=== PATIENT | female | born 1970 | race Caucasian/White ===

== ENCOUNTER 2023-01-15 16:08 | Emergency (ER) | payer OTHER ==
--- OUTSIDE RECORDS SUMMARY | 2023-01-15 16:48 | XMS REPORT | Continuity of Care Document ---
Author Name Unknown Address [address] [facility] [address] [place] [address] [facility] thconnect Address [address] [facility] [address] [place] [address] Care Team Providers Care Gospel Singer Name Role Phone All Macdonald Attending Clinicia n Unavailable Alexandra Craig V Attending Clinician Un available Alexandra Craig V Admitting Clinician Un available Payers Payer Name Policy Type Policy Number Effective Date Expirati on Date Source Allergies, Adverse Reactions, Alerts Allergy Name Allergy Type Status Severity Reaction(s) Onset Date Inactive Date Treating Clinician Comments Source codeine DA Active U UPSET STOMACH 10-28 00:00: 00 [facility] Encounters Start Date/Time End Date/Time Encounter Type Admission Type Attending Clinicians Care Facility Care Department Encounter ID Source 2021-03-22 15:05:41 [id number] [facility] 2022-08-05 12:00:00 2022-08-05 12:00:00 Outpatient Alexandra Concepcion [id number] [facility] 2021-08-06 17:03:00 2021-08-06 17:03:00 Outpatient Alexandra Concepcion [facility]I [id number] [facility] 2021-03-23 11:00:00 2021-03-23 11:00:00 Inpatient All Garcia CRAD [id number] [facility] 2021-03-22 13:34:00 2021-03-22 13:34:00 Outpatient All GarciaW [facility] [id number] [facility] 2021-02-20 12:00:00 2021-02-20 12:00:00 Outpatient Alexandra Concepcion CHUCK [id number] [facility] 2021-02-19 08:00:00 2021-02-19 23:00:00 Outpatient Alexandra Concepcion CPUL [id number] [facility] 2021-02-19 08:38:00 2021-02-19 08:38:00 [facility] [id number] [facility] Results Test Description Test Time Test Comments Results Resul t Comments Source - XR CHEST 2 V 2021-08-06 17:40:00 [facility] : 1970 Sex: F FAX: Leobardo Maravilla [phone] [place]: St: REG Name: AGUSTÍN MCGRATH [facility] : 1970 Age/S: 51/F [address] Unit #: [id number] Loc: [place] [address] Phys: Eliezer Craig MD Acct: [id number] Dis Date: Status: REG CLI PHONE #: [phone] Exam Date: 08/06/2021 1721 FAX #: [phone] Reason: ENCOUNTER FOR OTHER PREPROCEDURAL EXAMINATION EXAMS: CPT CODE: [id number] XR CHEST 2 V 26372 Location code: H5 Chest 1 view Indication: ENCOUNTER FOR OTHER PREPROCEDURAL EXAMINATION. Comparison: None Findings: The heart and mediastinum are not remarkable. Costophrenic angles are clear. Lungs are clear. Bone is unremarkable for age. Impression: 1. No radiographic evidence of acute cardiopulmonary disease. at 1740 Reported and signed by: Ike Iniguez MD CC: Alexandra Craig MD Technologist: MARLEEN GRIFFITH [facility] Date/Time/By: 08/06/2021 (1740) : By: [email or web address] PAGE 1 Signed Report FAX: Leobardo Maravilla [phone] [place]: St: REG Name: AGUSTÍN MCGRATH [facility] : 1970 Age/S: 51/F [address] Unit #: [id number] Loc: [place] [address] Phys: Eliezer Craig MD Acct: [id number] Dis Date: Status: REG CLI PHONE #: [phone] Exam Date: 08/06/2021 1721 FAX #: [phone] Reason: ENCOUNTER FOR OTHER PREPROCEDURAL EXAMINATION EXAMS: CPT CODE: [id number] XR CHEST 2 V 07534 (Continued) Orig Print D/T: S: 08/06/2021 (1743) PAGE 2 Signed Report - CT CHEST W/O CONTRAST 2021-03-22 15:02:00 [facility] : 1970 Sex: F FAX: All Campos [phone] [place]: St: REG FAX: Leobardo Maravilla [phone] Name: AGUSTÍN MCGRATH [facility] : 1970 Age/S: 51/F [address] Unit: [id number] Loc: [place] [address] Phys: All Macdonald Acct: [id number] Dis Date: Status: REG CLI PHONE #: [phone] Exam Date: 03/22/2021 9180 FAX #: [phone] Reason: ACUTE COUGH EXAMS: CPT CODE: [id number] CT CHEST W/O CONTRAST [address] without contrast. Location Code: D4 CLINICAL HISTORY: ACUTE COUGH COMPARISON: None Technique: Helical CT of the chest was performed without intravenous contrast. 5 mm axial, sagittal and coronal images were obtained. One or more of the following dose reduction techniques were used: Automated exposure control, adjustment of the mA and or KV according to patient size, and/or utilization of iterative reconstruction technique. DLP: 146.45 mGy-cm. FINDINGS: There are no focal infiltrates, pulmonary nodules, effusions, or focal emphysema. No pneumothorax. There is no mediastinal, hilar, or axillary adenopathy. There is no pericardial effusion. The heart is not enlarged. There is no mediastinal hematoma. Images through the upper abdomen are unremarkable. The bones, skin, and surrounding soft tissues are unremarkable. IMPRESSION: 1. No acute abnormality seen. at 1502 Reported and signed by: Corwin Hunter MD CC: All Macdonald; Alexandra Craig MD Technologist: SHANNA CARRENO Trnscrd Dt/Tm: 03/22/2021 (1502) [email or web address] Orig Print D/T: S: 03/22/2021 (6948 PAGE 1 Signed Report - CT HEART W CN STR [facility] 2021-02-22 09:25:00 [facility] : 1970 Sex: F FAX: Leobardo Maravilla [phone] [place]: St: PRE Name: AGUSTÍN MCGRATH [facility] : 1970 Age/S: 50/F [address] Unit: [id number] Loc: [place] [address] Phys: Eliezer Craig MD Acct: [id number] Dis Date: Status: PRE CLI PHONE #: [phone] Exam Date: 02/19/2021 1117 FAX #: [phone] Reason: FAMILY HISTORY OF ISCHEMIC HEART DISEASE AND OT EXAMS: CPT CODE: [id number] CT HEART W CN STR [facility] [address] HISTORY: Family history of heart disease COMPARISON: None TECHNIQUE: Prospective gating 64 slice coronary CTA was obtained for department protocol. Images were obtained and reviewed on 3-D workstation rendering 2D and 3D multiplanar, MIP and Volume Rendering images. FINDINGS: Quality: Overall examination is of good quality. Only limited motion artifacts are present. Morphology: Cardial chambers: Normal. Pericardium: Normal. GENERAL: Coronary artery system is right dominant. Origins: Left Main: Patent without significant disease or stenosis LAD: Patent without significant disease or stenosis DIAGONALS: Patent without significant disease or stenosis LCX: Patent without significant disease or stenosis OM: Patent without significant disease or stenosis RCA: Patent without significant disease or stenosis identified Extracardiac: Lungs are clear. IMPRESSION: 1. No significant disease or stenosis. PAGE 1 Signed Report (CONTINUED) FAX: Leobardo Maravilla [phone] [place]: St: PRE Name: AGUSTÍN MCGRATH [facility] : 1970 Age/S: 50/F [address] Unit: [id number] Loc: [place] [address] Phys: Eliezer Craig MD Acct: [id number] Dis Date: Status: PRE CLI PHONE #: [phone] Exam Date: 02/19/2021 1117 FAX #: [phone] Reason: FAMILY HISTORY OF ISCHEMIC HEART DISEASE AND OT EXAMS: CPT CODE: [id number] CT HEART W CN STR [facility] [address] (Continued) at 0925 Reported and signed by: Miky Muñiz MD CC: Alexandra Craig MD Technologist: Lea Lee Trnscrd Dt/Tm: 02/22/2021 (0925) [email or web address] Orig Print D/T: S: 02/22/2021 (0928 PAGE 2 Signed Report - DOP ART 1-2 LEVELS [id number] 10:27:00 [facility] : 1970 Sex: F FAX: Leobardo Watts [phone] [place]: St: REG Name: AGUSTÍN [facility]GR[facility] [place] 1970 Age/S: 50/F [address] Unit #: [id number] Loc: [place] [address] Phys: Alexandra Craig MD Acct: [id number] Dis Date: Status: REG CLI PHONE #: [phone] Exam Date: 02/19/2021 1005 FAX #: [phone] Reason: HYPERLIPIDEMIA EXAMS: CPT CODE: [id number] DOP ART 1-2 LEVELS FLORENCIO 65410 EXAMINATION: - DUP LE ART FLORENCIO, - DOP ART 1-2 LEVELS FLORENCIO COMPARISON: None HISTORY: Hyperlipidemia LOCATION CODE: C3 TECHNIQUE: Grayscale, color Doppler and spectral waveform analysis of the arterial systems of both lower extremities was performed. FINDINGS: RIGHT LOWER EXTREMITY:No significant plaquing is seen in the arterial structures of the right lower extremity and no areas of focal aneurysm or stenosis are identified. Triphasic waveforms are seen throughout the arterial structures of the right lower extremity. The right BRITNEY is 1.0 LEFT LOWER EXTREMITY: No significant plaquing is seen in the arterial structures of the left lower extremity, and no areas of focal aneurysm or stenosis are identified. Triphasic waveforms are seen throughout the arterial structures the left lower extremity with the exception of the dorsalis pedis artery, which is biphasic waveforms. The left BRITNEY is 1.0 IMPRESSION: No evidence of hemodynamically significant stenosis in either lower extremity Elect ronically Signed by Marge Persaud MD on 02/19/2021 at 1027 Reported and signed by: Marge Persaud MD CC: Alexandra Craig MD Technologist: JASMINE READ Trnscrd Date/Time/By: 02/19/2021 (1027) : By: [email or web address] PAGE 1 Signed Report FAX: Leobardo Maravilla [phone] [place]: St: REG -- Name: AGUSTÍN MCGRATH [facility] : 1970 Age/S: 50/F [address] Unit #: [id number] Loc: [place] [address] Phys: Alexandra Pedroza MD Acct: [id number] Dis Date: Status: REG CLI PHONE #: [phone] Exam Date: 02/19/2021 1005 FAX #: [phone] Reason: HYPERLIPIDEMIA EXAMS: CPT CODE: [id number] DOP ART 1-2 LEVELS FLORENCIO 10772 (Continued) Orig Print D/T: S: 02/19/2021 (1030) PAGE2 Signed Report- DUP LE ART [id number] 10:27:00 [facility] : 1970 Sex: F FAX: Leobardo Watts [phone] [place]: YENIFER St: REG Name: AGUSTÍN MCGRATH [facility] [place] : 1970 Age/S: 50/F [address] Unit #: [id number] Loc: [place] [address] Phys: Alexandra Craig MD Acct: [id number] Dis Date: Status: REG CLI PHONE #: [phone] Exam Date: 02/19/2021 1005 FAX #: [phone] Reason: HYPERLIPIDEMIA EXAMS: CPT CODE: [id number] DUP LE ART [place] 12901 EXAMINATION: - DUP LE ART FLORENCIO, - DOP ART 1-2 LEVELS FLORENCIO COMPARISON: None HISTORY: Hyperlipidemia LOCATIONCODE: C3 TECHNIQUE: Grayscale, color Doppler and spectral waveform analysis of the arterial systems of both lower extremities was performed. FINDINGS: RIGHT LOWER EXTREMITY:No significant plaquing is seen in the arterial structures of the right lower extremity and no areas of focal aneurysm or stenosis are identified. Triphasic waveforms are seen throughout the arterial structures of the right lower extremity. The right BRITNEY is 1.0 LEFT LOWER EXTREMITY: No significant plaquing is seen in the arterial structures of the left lower extremity, and no areas of focal aneurysm or stenosis are identif ied. Triphasic waveforms are seen throughout the arterial structures the left lower extremity with the exception of the dorsalis pedis artery, which is biphasic waveforms. The left BRITNEY is 1.0 IMPRESSION: No evidence of hemodynamically significant stenosis in either lower extremity at 1027 Reported and signed by: Marge Persaud MD CC: Alexandra Craig MD Technologist: JASMINE READ Trnscrd Date/Time/By: 02/19/2021 (1027) : By: [email or web address] PAGE 1 Signed Report FAX: Leobardo Maravilla [phone] [place]: St: REG------ Name: AGUSTÍN MCGRATH [facility] [place] : 1970 Age/S: 50/F [address] Unit #: [id number] Loc: [place] [address] Phys: Alexandra Craig MD Acct: [id number] Dis Date: Status: REG CLI PHONE #: [phone] Exam Date: 02/19/2021 1005 FAX #: [phone] Reason: HYPERLIPIDEMIA EXAMS: CPT CODE: [id number] DUP LE ART [place]ORENCIO 19377 (Continued) Orig Print D/T: S: 02/19/2021 (1030) PAGE 2 Signed Report- DUP EXTRACRANIAL [id number] 10:25:00 [facility] : 1970 Sex: F FAX: Leobardo Watts [phone] [place]: St: REG Name: AGUSTÍN MCGRATH [facility] [place] : 1970 Age/S: 50/F [address] Unit #: [id number] Loc: [place] [address] Phys: Alexandra Craig MD Acct: [id number] Dis Date: Status: REG CLI PHONE #: [phone] Exam Date: 02/19/2021 1005 FAX #: [phone] Reason: HYPERLIPIDEMIA EXAMS: CPT CODE: [id number] DUP EXTRACRANIAL [place]OR[place] 25599 EXAMINATION: - DUP EXTRACRANIAL FLORENCIO COMPARISON: None HISTORY: Hyperlipidemia LOCATION CODE: C3 TECHNIQUE: Grayscale, color Doppler and spectral waveform analysis of the carotid and vertebral arterialsystems was performed. FINDINGS: RIGHT CAROTID SYSTEM: No significant atheromatous plaquing is present in the right carotid system and no areas of focal aneurysm or stenosis are identified. Peak systolic velocity in the right internal carotid artery is 77 cm/s RIGHT ICA:CCA ratio: 0.9 LEFT CAROTID SYSTEM: No significant atheromatous plaquing is present in the left carotid system and no areas of fo deidra aneurysm or stenosis are identified. Peak systolic velocity in the left internal carotid arteryis 95 cm/s LEFT ICA:CCA ratio: 1.2 VERTEBRAL ARTERIES: Antegrade flow is seen in both vertebral arteries ADJACENT SOFT TISSUES: Unremarkable IMPRESSION: No evidence of hemodynamically significant stenosis in either carotid system using NASCET-like criteria. For any reported stenosis, validated velocity measurements with angiographic measurements, velocity criteria are extrapolated from diameter data as defined by the Society of radiologists in Ultrasound Consensus Conference Radiology 2003; 229; 340-346. at 1025 Reported and signedby: Marge Persaud MD PAGE 1 Signed Report (CONTINUED) FAX: Leobardo Watts [phone] [place]: St: REG -- Name: AGUSTÍN MCGRATH [facility] : 1970 Age/S: 50/F [address] Unit #: [id number] Loc:[place] [address] Phys: Alexandra Pedroza MD Acct: [id number] Dis Date: Status: REGCLI PHONE #: [phone] Exam Date: 02/19/2021 1005 FAX #: [phone] Reason: HYPERLIPIDEMIA EXAMS: CPT CODE: [id number] DUP EXTRACRANIAL FLORENCIO 82860 (Continued) CC: Alexandra Craig MD Technologist: JASMINE READ Date/Time/By: 02/19/2021 (1279) : By: [email or web address] PAGE 2 Signed Report FAX: Leobardo Maravilla [phone] [place]: St: REG Name: AGUSTÍN MCGRATH [facility] : 1970 Age/S: 50/F [address] Unit #: [id number] Loc: [place] [address] Phys: Alexandra Craig MD Acct: [id number] Dis Date: Status: REG CLI PHONE #: [phone] Exam Date: 02/19/2021 1005 FAX #: [phone] Reason: HYPERLIPIDEMIA EXAMS: CPT CODE: [id number] DUP EXTRACRANIAL FLORENCIO 14603 (Continued) Orig Print D/T: S: 02/19/2021 (5555) PAGE 3 Signed Report- XR HAND 3 + V [id number] 11:52:00FAX: Leobardo Maravilla [phone] [place]: St: REG Name: AGUSTÍN MCGRATH [facility] : 1970 Age/S: 48/F [address] Unit #: [id number] Loc: [place] [address] Phys: Alexandra Craig MD Acct: [id number] Dis Date: Status: REG CLI PHONE #: [phone] Exam Date: 05/06/2018 1055 FAX #: [phone] Reason: PAIN IN RIGHT FINGER(S),PAIN IN LEFT FINGER(S) EXAMS: CPT CODE: [id number] XR HAND 3 + [place] [address] EXAM: - XR HAND 3 + V BI HISTORY: PAIN IN RIGHT FINGER(S),PAIN IN LEFT FINGER(S) COMPARISON: None available time of interpretation. FINDINGS: Frontal, oblique, and lateral views of both hands are provided. No acute fracture or malalignment. No soft tissue findings are a pparent. IMPRESSION: No acute findings. at 1152 Reported and signed by: Anurag Pittman MD CC: Alexandra Craig MD Technologist: Meghan Turner Trnscrd Date/Time/By: 05/06/2018 (6099) : By: [email or web address] PAGE 1 Signed Report FAX: Leobardo Ram [phone] [place]: St: REG Name: AGUSTÍN MCGRATH [facility] : 1970 Age/S: 48/F [address] Unit #: [id number] Loc: [place] [address] Phys: Alexandra Craig MD Acct: [id number] Dis Date: Status: REG CLI PHONE #: [phone] Exam Date: 05/06/2018 1055 FAX #: [phone] Reason: PAIN IN RIGHT FINGER(S),PAIN IN LEFT FINGER(S) EXAMS: CPT CODE: [id number] XR HAND 3 + [place] [address] (Continued) Orig Print D/T: S: 05/06/2018 (1155) PAGE 2 Signed Report
[2023-01-15 17:11] LABS: Absolute Lymphocytes (CBC) 2.4 K/uL (0.7-4.9); Hematocrit 41.8 % (36.0-45.0); Lymphocytes % 31.5 % (15.3-44.8); MPV 8.3 fL (7.6-11.3); Platelets 299 thou/uL (152-406); RBC Red Blood Cell Count 4.86 M/uL (3.86-4.86)
[2023-01-15 17:17] LABS: Protime INR 0.98
[2023-01-15 17:39] LABS: ALT/SGPT 43 U/L (13-56); AST/SGOT 27 U/L (15-37); Alkaline Phosphatase 82 U/L (45-117); BUN Blood Urea Nitrogen 15 mg/dL (7-18); Bicarbonate 25 mEq/L (21-32); Bilirubin Total 0.3 mg/dL (0.2-1.0); Glomerular Filtration Rate 69 ml/min (=/>90); Glucose Level 100 mg/dL (74-106); Magnesium 2.4 mg/dL (1.6-2.4); Potassium 3.7 mEq/L (3.5-5.1); Protein, Total 8.1 g/dL (6.4-8.2); Sodium Level 138 mEq/L (136-145); Troponin High Sensitivity 41.9 pg/mL (<58.9)
[2023-01-15 17:40] LABS: Bilirubin Direct < 0.1 mg/dL (0-0.2); Bilirubin Indirect, Calculated ND mg/dL (0.2-0.8)
--- NOTE | 2023-01-15 17:55 | RAD REPORT ---
EXAM DESCRIPTION: CT - Head Brain Wo Cont - 01/15/2023 5:45 pm CLINICAL HISTORY: NUMBNESS Headache, drowsiness, numbness and tingling COMPARISON: No comparisons TECHNIQUE: All CT scans are performed using dose optimization technique as appropriate and may inclu de automated exposure control or mA/KV adjustment according to patient size. FINDINGS: No intracranial hemorrhage, hydrocephalus or extra-axial fluid collection.No areas of brai n edema or evidence of midline shift. The paranasal sinuses and mastoids are clear. The calvarium is intact. IMPRESSION: No acute intracranial abnormality.
--- NOTE | 2023-01-15 20:21 | EDPHYS ---
Physician Documentation [facility] Name: Shila Leigh Age: 52 yrs Sex: Female : 1970 Arrival Date: 01/15/2023 Time: 16:08 Bed 11 Private MD: ED Physician Umair Valles HPI: 01/15 20:20 This 52 yrs old Female presents to ER via Ambulatory with complaints of Numbness Of kb Hand, Numbness of Foot. 20:20 Pt reports numbness and tingling from tricep area to hand on left arm and from lateral kb aspect of calf to foot on left leg that started at 0900 this morning. Denies any other symptoms. 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 - Social history:: Smoking status: Patient denies any tobacco usage or history of. ROS: 20:18 Constitutional: Negative for fever, chills, and weight loss, kb 20:18 Neuro: Positive for numbness, tingling, of the left arm and left leg, 20:18 All other systems are negative, Exam: 20:18 Constitutional: This is a well developed, well nourished patient who is awake, alert, kb and in no acute distress. Head/Face: Normocephalic, atraumatic. ENT: Moist Mucous membranes Cardiovascular: Regular rate Respiratory: Respirations even and unlabored. No increased work of breathing. Talking in full sentences Abdomen/GI: Soft, non-tender. No distention Skin: Warm, dry with normal turgor. Normal color. MS/ Extremity: Pulses equal, no cyanosis. Neurovascular intact. Full, normal range of motion. Neuro: Awake and alert, GCS 15, oriented to person, place, time, and situation. Moves all extremities. Normal gait. 21:54 ECG was reviewed by the Attending Physician. kb Vital Signs: 16:43 BP 148 / 101; Pulse 85; Resp 18; Temp 98.3(O); Pulse Ox 100% on R/A; Weight 74.84 kg; db Height 5 ft. 3 in. ; Pain 0/10; 20:34 BP 137 / 94; Pulse 81; Resp 18; Pulse Ox 100% ; cp4 16:43 Body Mass Index 29.23 (74.84 kg, 160.02 cm) db 16:43 Pain Scale: Adult db MDM: 16:44 Patient medically screened. rt 20:19 Differential diagnosis: CVA, paresthesias, radiculopathy, neuropathy. Data reviewed: vital signs, nurses notes. Consideration of Admission/Observation Escalation of care including admission/observation considered. admission considered, but serial troponin normal and decreasing, denies chest pain, pt has full strength and use of all extremities. . Counseling: I had a detailed discussion with the patient and/or guardian regarding the historical points, exam findings, and any diagnostic results supporting the discharge/admit diagnosis, lab results, radiology results, the need for outpatient follow up, a family practitioner, a neurologist, to return to the emergency department if symptoms worsen or persist or if there are any questions or concerns that arise at home. 20:21 ED course: Pt in agreement with outpatient follow up. Has appt scheduled with pcp on Friday. Educated on return precautions. 12 16:47 Order name: Basic Metabolic Panel; Complete Time: 17:45 kb 01/15 16:47 Order name: CBC with Diff; Complete Time: 17:17 kb 01/15 16:47 Order name: Hepatic Function; Complete Time: 17:45 kb 01/15 16:47 Order name: High Sensitivity Troponin; Complete Time: 17:45 kb 01/15 16:47 Order name: Magnesium; Complete Time: 17:45 kb 01/15 16:47 Order name: Protime (+inr); Complete Time: 17:17 kb 01/15 16:47 Order name: Ptt, Activated; Complete Time: 17:17 kb 01/15 17:05 Order name: Glucose, Ancillary Testing; Complete Time: 17:11 EDMS 01/15 19:33 Order name: Troponin High Sensitivity; Complete Time: 20:18 kb 01/15 16:47 Order name: CT Head Brain wo Cont; Complete Time: 18:01 kb 01/15 16:47 Order name: EKG; Complete Time: 17:04 kb 01/15 16:47 Order name: Accucheck; Complete Time: 16:52 kb 01/15 16:47 Order name: EKG - Nurse/Tech; Complete Time: 17:13 kb 12 16:47 Order name: IV Saline Lock; Complete Time: 16:58 kb 12 16:47 Order name: Labs collected and sent; Complete Time: 16:58 kb 01/15 16:47 Order name: NPO; Complete Time: 17:13 kb 12 16:47 Order name: O2 Per Protocol; Complete Time: 16:58 kb 01/15 16:47 Order name: O2 Sat Monitoring; Complete Time: 16:58 kb 01/15 16:47 Order name: Stroke Swallow Screen; Complete Time: 16:58 kb EC:54 Rate is 68 beats/min. Rhythm is regular. QRS Marshall is Normal. WA interval is normal at kb 154 msec. QRS interval is normal at 72 msec. QT interval is normal at 427 msec. Administered Medications: No medications were administered Point of Care Testing: Blood Glucose: 16:52 Blood Glucose: 95 mg/dL; db Ranges: Critical Glucose Levels:Adult <50 mg/dl or >400 mg/dl <40 mg/dl or >180 mg/dl Disposition Summary: 01/15/23 20:21 Discharge Ordered Notes: Location: Home kb Condition: Stable kb Diagnosis - Paresthesia of skin kb Followup: kb - With: Emergency Department - When: As needed - Reason: Worsening of condition Followup: kb - With: Private Physician - When: 2 - 3 days - Reason: Recheck today's complaints, Continuance of care, Re-evaluation by your physician Discharge Instructions: - Discharge Summary Sheet kb - Peripheral Neuropathy kb - Paresthesia, Satv-vc-Niwi kb Forms: - Medication Reconciliation Form kb - Thank You Letter kb - Antibiotic Education kb - Prescription Opioid Use kb - Patient Portal Instructions kb - Leadership Thank You Letter kb Addendum: 01/17/2023 10:18 Co-signature as Attending Physician, Umair Valles MD I reviewed the patient's care r t provided by the Advanced Practice Provider and agree with the diagnosis and treatment plan. Signatures: Dispatcher [employer] Gretchen Rojas, PETRA-Josiah LAMBERT-Meera Gooden RN RN Umair Granda MD MD rt Corrections: (The following items were deleted from the chart) 01/15 16:47 16:46 Allergies: No Known Allergies; volodymyr helm 16:47 16:46 PMHx: None; db db
--- NOTE | 2023-01-15 20:21 | ER ---
Nurse's Notes [facility] Name: Shila Leigh Age: 52 yrs Sex: Female : 1970 Arrival Date: 01/15/2023 Time: 16:08 Bed 11 Private MD: Diagnosis: Paresthesia of skin Presentation: 01/15 16:43 Chief complaint: Patient states: STATES HAS LEFT HAND TINGLING AND LEFT LEG TINGLING. db Coronavirus screen: Client denies travel out of the [place] in the last 14 days. At this time, the client does not indicate any symptoms associated with coronavirus-19. Ebola Screen: Patient negative for fever greater than or equal to 101.5 degrees Fahrenheit, and additional compatible Ebola Virus Disease symptoms Patient denies exposure to infectious person. Patient denies travel to an Ebola-affected area in the 21 days before illness onset. No symptoms or risks identified at this time. Initial Sepsis Screen: Does the patient meet any 2 criteria? No. Patient's initial sepsis screen is negative. Does the patient have a suspected source of infection? No. Patient's initial sepsis screen is negative. Risk Assessment: Do you want to hurt yourself or someone else? Patient reports no desire to harm self or others. Onset of symptoms was January 15, 2023 at 09:00. 16:43 Method Of Arrival: Ambulatory db 16:43 Acuity: PADMINI 2 db Triage Assessment: 16:48 General: Appears in no apparent distress. comfortable, Behavior is calm, cooperative. db Pain: Denies pain. Neuro: Level of Consciousness is awake, alert, obeys commands, Oriented to person, place, time, situation. Respiratory: Airway is patent Respiratory effort is even, unlabored, Respiratory pattern is regular, symmetrical. 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 - Social history:: Smoking status: Patient denies any tobacco usage or history of. Screenin:35 [facility] ED Fall Risk Assessment (Adult) History of falling in the last 3 months, cp4 including since admission No falls in past 3 months (0 pts) Confusion or Disorientation No (0 pts) Intoxicated or Sedated No (0 pts) Impaired Gait No (0 pts) Mobility Assist Device Used No (0 pt) Altered Elimination No (0 pt) Score/Fall Risk Level 0 - 2 = Low Risk Oriented to surroundings, Maintained a safe environment, Educated pt \T\ family on fall prevention, incl call for assistance when getting out of bed, Hourly rounding (assess needs \T\ fall precautionary measures) done. Abuse screen: Denies threats or abuse. Nutritional screening: No deficits noted. Tuberculosis screening: No symptoms or risk factors identified. Assessment: 17:37 Reassessment: No changes from previously documented assessment. Patient and/or family ll1 updated on plan of care and expected duration. Pain level reassessed. Vital Signs: 16:43 BP 148 / 101; Pulse 85; Resp 18; Temp 98.3(O); Pulse Ox 100% on R/A; Weight 74.84 kg; db Height 5 ft. 3 in. ; Pain 0/10; 20:34 BP 137 / 94; Pulse 81; Resp 18; Pulse Ox 100% ; cp4 16:43 Body Mass Index 29.23 (74.84 kg, 160.02 cm) db 16:43 Pain Scale: Adult db ED Course: 16:10 Patient arrived in ED. rg4 16:44 Umair Valles MD is Attending Physician. rt 16:46 Triage completed. db 16:47 Gretchen Perez FNP-C is [facility]. kb 16:47 Arm band placed on right wrist. Patient placed. db 17:47 CT Head Brain wo Cont In Process Unspecified. EDMS 18:41 Dorene Gonzalez is Primary Nurse. cp4 19:53 Troponin High Sensitivity Sent. cp4 20:35 Bed in low position. Call light in reach. Side rails up X 1. Provided Education on: cp4 peripheral neuropathy.. 20:35 No provider procedures requiring assistance completed. intact, bleeding controlled, No cp4 redness/swelling at site. Pressure dressing applied. Administered Medications: No medications were administered Medication: 20:35 VIS not applicable for this client. cp4 Point of Care Testing: Blood Glucose: 16:52 Blood Glucose: 95 mg/dL; db Ranges: Outcome: 20:21 Discharge ordered by . kb 20:35 Discharged to home ambulatory, cp4 20:35 Condition: stable 20:35 Discharge instructions given to patient, Instructed on discharge instructions, follow up and referral plans. Demonstrated understanding of instructions, follow-up care, 20:36 Patient left the ED. cp4 Signatures: Dispatcher [employer] EDMS Gretchen Perez, PETRA-C [employer] MACHINE OFFBEARER-Lou Andres rg4 Kayode Garcia RN RN ll1 Meera Van RN RN db Umair Valles MD MD rt Potter, Christina cp4 Corrections: (The following items were deleted from the chart) 16:47 16:43 BP 148 / 101; Pulse 18bpm; Resp 18bpm; Pulse Ox 100% RA; Temp 98.3F Oral; Pain db 0/10, Adult; db 16:47 16:46 Allergies: No Known Allergies; db db 16:47 16:46 PMHx: None; db db 17:25 16:43 BP 148 / 101; Pulse 18bpm; Resp 18bpm; Pulse Ox 100% RA; Temp 98.3F Oral; 74.84 db kg; Height 5 ft. 3 in.; BMI: 29.2; Pain 0/10, Adult; db
[2023-01-15 21:36] VITALS: TEMP 98.3; O2SAT 100
[2023-01-15 21:37] VITALS: BP 137/94
== END 2023-01-15 20:36 | disposition home or self-care (01) ==
LOC: ER 16:08
DX: R20.2 Paresthesia of skin (principal); Z88.5 Allergy status to narcotic agent
CPT/HCPCS: 36415; 70450; 80048; 80076; 82947; 83735; 84484; 85025; 85610; 85730; 93005; 99283

== ENCOUNTER 2024-01-13 04:34 | Emergency (ER) | payer OTHER ==
--- OUTSIDE RECORDS SUMMARY | 2024-01-13 04:39 | XMS REPORT | Continuity of Care Document ---
Author Name Unknown Address [address] [facility] [address] [place] [address] [facility] Address [address] [facility] [address] [place] [address] Care Team Providers Care Harness Maker Name Role Phone Alexandra Craig V Attending Clinician Un available All Macdonald Attending Clinicia n Unavailable Franko Wood Attending Clinician Unavaila ble Alexandra Craig V Admitting Clinician Un available Franko Wood Admitting Clinician Unavailcelina medrano Payers Payer Name Policy Type Policy Number Effective Date Expirati on Date Source Allergies, Adverse Reactions, Alerts Allergy Name Allergy Type Status Severity Reaction(s) Onset Date Inactive Date Treating Clinician Comments Source tramadol DA Active MO RASH-UNKNOWN 2022-02 00:00: 00 [facility] codeine DA Active U UPSET STOMACH 10-28 00:00: 00 [facility] Encounters Start Date/Time End Date/Time Encounter Type Admission Type Attending Clinicians Care Facility Care Department Encounter ID Source 2023-12-09 07:30:00 [id number] [facility] 2021-03-22 15:05:41 Outpatient All MacdonaldKW [id number] [facility] 2023-01-28 18:26:00 2023-01-30 14:04:00 Inpatient Franko Noe [facility] [id number] [facility] 2022-08-05 12:00:00 2022-08-05 12:00:00 Outpatient Alexandra ConcepcionKW CHUCK [id number] [facility] 2021-08-06 17:03:00 2021-08-06 17:03:00 Outpatient Alexandra Concepcion [facility] [id number] [facility] 2021-03-23 11:00:00 2021-03-23 11:00:00 Inpatient All Garcia [facility] [id number] [facility] 2021-03-22 13:34:00 2021-03-22 13:34:00 Outpatient All [facility]W [facility] [id number] [facility] 2021-02-20 12:00:00 2021-02-20 12:00:00 Outpatient Alexandra ConcepcionW CHUCK [id number] [facility] 2021-02-19 08:00:00 2021-02-19 23:00:00 Outpatient Alexandra ConcepcionW CPUL [id number] [facility] 2021-02-19 08:38:00 2021-02-19 08:38:00 Inpatient Alexandra ConcepcionW YULIW [id number] [facility] Results Test Description Test Time Test Comments Results Result Co mments Source [id number] 12:39:00* Test Item Value Reference Range Interpretation Comme nts GLUBED (test code = GLUBED) 110 MG/DL 74-106 H [id number] 07:45:00* Test Item Value Reference Range Interpretation Comme nts GLUBED (test code = GLUBED) 97 MG/DL 74-106 N CBC W/AUTO [id number] 01:10:00* Test Item Value Reference Range Interpretation Comme nts WHITE BLOOD CELL (test code = WBC) 11.9 x10 3/uL 5.0-12.0 N RED BLOOD CELL (test code = RBC) 4.25 x10 6/uL 4.20-5.40 N HEMOGLOBIN (test code = HGB) 12.3 g/dL 12.0-16.0 N HEMATOCRIT (test code = HCT) 36.0 % 36.0-46.0 N MEAN CELL VOLUME (test code = MCV) 85 fL 81-99 N MEAN CELL HGB (test code = MCH) 28.9 pg 27-31 N MEAN CELL HGB CONCENTRATION (test code = MCHC) 34.2 g/dL 33-37 N RED CELL DISTRIBUTION WIDTH (test code = RDW) 13.4 % 11.5-15.5 N PLATELET COUNT (test code = PLT) 275 x10 3/uL 130-400 N MEAN PLATELET VOLUME (test c ode = MPV) 10.5 fL 9.4-16.4 N NEUTROPHIL % (test code = NT%) 66.2 % 43-65 H IMMATURE GRANULOCYTE % (test code = IG%) 0.5 % 0.0-2.0 N LYMPHOCYTE % (test code = LY%) 25.0 % 20.5-45.5 N MONOCYTE % (test code = MO%) 7.0 % 5.5-11.7 N EOSINOPHIL % (test code = EO%) 0.8 % 0.9-2.9 L BASOPHIL % (test code = BA%) 0.5 % 0.2-1.0 N NUCLEATED RBC % (test code = NRBC%) 0.0 % 0-1.0 N NEUTROPHIL # (test code = NT#) 7.85 x10 3/uL 2.2-4.8 H IMMATURE GRANULOCYTE # (test code = IG#) 0.06 x10 3/uL 0-0.03 H LYMPHOCYTE # (test code = LY#) 2.96 x10 3/uL 1.3-2.9 H MONOCYTE # (test code = MO#) 0.83 x10 3/uL 0.3-0.8 H EOSINOPHIL # (test code = EO#) 0.10 x10 3/uL 0.0-0.2 N BASOPHIL # (test code = BA#) 0.06 x10 3/uL 0.0-0.1 N [id number] 00:48:00* Test Item Value Reference Range Interpretation Comme nts GLUBED (test code = GLUBED) 101 MG/DL 74-106 N [id number] 20:32:00* Test Item Value Reference Range Interpretation Comme nts GLUBED (test code = GLUBED) 123 MG/DL 74-106 H - MRI BRAIN W/O [id number] 18:46:00 [facility] 1970 Sex: F FAX: Sarahi Odonnell MD [phone] [place]: St: [facility] FAX: Quintin Yao MD FAX: Leobardo Maravilla [phone] Name: AGUSTÍN LEIGH [facility] : 1970 Age/S: 52/F [address] Unit #: [id number] Loc: [address] [address] Phys: Quintin Yao MD R3 Acct: [id number] Dis Date: Status: ADM IN PHONE #: [phone] Exam Date: 01/29/2023 1800 FAX #: [phone] Reason: stroke, facial droop R side EXAMS: CPT CODE: [id number] MRI BRAIN W/O CONTRAST 47822 EXAM: MRI of the Brain without contrast Location: A1 HISTORY: stroke, facial droop R side COMPARISON: Correlation with CT from 01/28/2023 TECHNIQUE: Sagittal T1, axial T1, T2, FLAIR, T2 gradient, diffusion with ADC mapping and coronal T2 weighted images of the brain and brainstem were obtained without contrast. FINDINGS: No diffusion abnormalities are identified to suggest acute ischemic infarction. No signal abnormalities are identified on T2 GRE images to suggest acute or chronic hemorrhagic products. The brain parenchymal volume and ventricular caliber are within normal limits. No mass lesions or extra-axial fluid collections are seen. No signal abnormalities are identified within mathias or white matter. The midline structures including the corpus callosum, pituitary gland and sella, brainstem and craniocervical junction are within normal limits. The posterior cranial fossa structures are normal. Normal signal voids are identified in the intracranial arterial vasculature and dural venous sinuses. The paranasal si nuses, mastoid air cells and orbits are within normal limits IMPRESSION: 1. No acute intracranial abnormality. No acute ischemic infarct or mass lesion. at 1846 Reported and signed by: Gagan Orona MD CC: Sarahi Odonnell MD; Quintin Yao MD; Alexandra Craig MD Technologist: Casey [facility] Date/Time/By: 01/29/2023 (184) : By: [email or web address] PAGE 1 Signed Report FAX: Sarahi Odonnell MD [phone] [place]: St: [facility] FAX: Quintin Yao MD R FAX: Leobardo Watts [phone] Name: AGUSTÍN LEIGH [facility] : 1970 Age/S: 52/F [address] Unit #: [id number] Loc: C.ICC0 [place] [address] Phys: Quintin Yao MD R3 Acct: [id number] Dis Date: Status: ADM IN PHONE #: [phone] Exam Date: 01/29/2023 1800 FAX #: [phone] Reason: stroke, facial droop R side EXAMS: CPT CODE: [id number] MRI BRAIN W/O CONTRAST 83228 (Continued) Orig Print D/T: S: 01/29/2023 (2153) PAGE 2 Signed Report [id number] 12:57:00* Test Item Value Reference Range Interpretation Comme nts GLUBED (test code = GLUBED) 132 MG/DL 74-106 H [id number] 07:56:00* Test Item Value Reference Range Interpretation Comme nts GLUBED (test code = GLUBED) 135 MG/DL 74-106 H [id number] 06:10:00* Test Item Value Reference Range Interpretation Comme nts GLUBED (test code = GLUBED) 143 MG/DL 74-106 H BASIC METABOLIC [id number] 04:06:00* Test Item Value Reference Range Interpretation Comme nts SODIUM (test code = NA) 140 mmol/L 137-145 N POTASSIUM (test code = K) 3.5 mmol/L 3.4-5.0 N CHLORIDE (test code = CL) 111 mmol/L 98-107 H CARBON DIOXIDE (test code = CO2) 20 mmol/L 22-30 L ANION GAP (test code = GAP) 12 mmol/L 10-20 N GLUCOSE (test code = GLU) 148 mg/dL 74-106 H BLOOD UREA NITROGEN (test code = BUN) 12 mg/dL 7-17 N GLOMERULAR FILTRATION RATE (test code = GFR) 103 mL/min The Glomerular Filtration Rate is a calculated parameterbased on serum Creatinine, patient age and sex. GFR valuesless than 60 mL/min/1.73 square meters are indicative ofChronic Kidney Disease. Values less than 15 mL/min/1.73square meters indicate Kidney failure. The calculation forGFR is based on the CKD-EPI (2020) calculation. This formulais race indifferent and is the recommended formula for GFRby the National Kidney Foundation for Adults.The GFR will not calculate if the sex is unknown or if thepatient's age is <18 years. CREATININE (test code = CREAT) 0.7 mg/dL 0.5-1.0 N CALCIUM (test code = CA) 8.4 mg/dL 8.4-10.2 N INDEX HEMOLYSIS (test code = HEMINDEX) 19 Index/DL 0-100 N [id number] 04:06:00* Test Item Value Reference Range Interpretation Comme nts MAGNESIUM (test code = MAG) 2.1 mg/dL 1.6-2.3 N CBC W/AUTO [id number] 03:12:00* Test Item Value Reference Range Interpretation Comme nts WHITE BLOOD CELL (test code = WBC) 7.0 x10 3/uL 5.0-12.0 N RED BLOOD CELL (test code = RBC) 4.84 x10 6/uL 4.20-5.40 N HEMOGLOBIN (test code = HGB) 13.8 g/dL 12.0-16.0 N HEMATOCRIT (test code = HCT) 40.4 % 36.0-46.0 N MEAN CELL VOLUME (test code = MCV) 84 fL 81-99 N MEAN CELL HGB (test code = MCH) 28.5 pg 27-31 N MEAN CELL HGB CONCENTRATION (test code = MCHC) 34.2 g/dL 33-37 N RED CELL DISTRIBUTION WIDTH (test code = RDW) 13.3 % 11.5-15.5 N PLATELET COUNT (test code = PLT) 282 x10 3/uL 130-400 N MEAN PLATELET VOLUME (test c ode = MPV) 10.4 fL 9.4-16.4 N NEUTROPHIL % (test code = NT%) 85.6 % 43-65 H IMMATURE GRANULOCYTE % (test code = IG%) 0.7 % 0.0-2.0 N LYMPHOCYTE % (test code = LY%) 12.4 % 20.5-45.5 L MONOCYTE % (test code = MO%) 0.9 % 5.5-11.7 L EOSINOPHIL % (test code = EO%) 0.0 % 0.9-2.9 L BASOPHIL % (test code = BA%) 0.4 % 0.2-1.0 N NUCLEATED RBC % (test code = NRBC%) 0.0 % 0-1.0 N NEUTROPHIL # (test code = NT#) 6.02 x10 3/uL 2.2-4.8 H IMMATURE GRANULOCYTE # (test code = IG#) 0.05 x10 3/uL 0-0.03 H LYMPHOCYTE # (test code = LY#) 0.87 x10 3/uL 1.3-2.9 L MONOCYTE # (test code = MO#) 0.06 x10 3/uL 0.3-0.8 L EOSINOPHIL # (test code = EO#) 0.00 x10 3/uL 0.0-0.2 N BASOPHIL # (test code = BA#) 0.03 x10 3/uL 0.0-0.1 N [id number] 22:25:00* Test Item Value Reference Range Interpretation Comme nts GLUBED (test code = GLUBED) 117 MG/DL 74-106 H LIPID PROFILE (CORONARY RISK)2023-01-28 20:45:00* Test Item Value Reference Range Interpretation Comme nts TRIGLYCERIDES (test code = TRIG) 130 mg/dL TRIGLYCERIDES REFERENCE RANGE:Normal: <150 mg/dLBorderline High: 150-199 mg/dLHigh: 200-499 mg/dLVery High: >=500 mg/dL CHOLESTEROL (test code = CHOL) 226 mg/dL CHOLESTEROL REFERENCE RANGE:DESIRABLE: < 200 mg/dLBORDERLINE: 200-239 mg/dLHIGH: >=240 mg/dL HDL CHOLESTEROL (test code = HDL) 49 mg/dL 40-59 N LIPOPROTEIN LDL (test code = LDLC) 152.48 mg/dL 32-99 H CORONARY RISK FACTOR (test code = RISK) 4.61 CHOL/HDL RISK MALE: 1/2 AVG 3.43 FEMALE: 1/2 AVG 3.27 AVG 4.97 AVG 4.44 2X AVG 9.55 2X AVG 7.05 3X AVG 23.39 3X AVG 11.04~~~~~~~~~~~~~~~ ~~~~~~~~~~~~~~~~~~~~ ~~~~~~~~~~~~~~~~~~~~ ~~~~~National Cholesterol Education (NCEP) Guidelines:~~~~~~~~~ ~~~~~~~~~~~~~~~~~~~~ ~~~~~~~~~~~~~~~~~~~~ ~~~~~~~~~~~ HDL Cholesterol<40mg/d L: HDL Cholesterol (Major risk factor for CHD)>60mg/dL: HDL Cholesterol (Negative risk factor for CHD)40-59mg/dL: Borderline Risk LDL Cholesterol<100mg/ dL: Desirable LDL-C ztqazmjweekhm222-076 mg/dL: Borderline High Risk LDL-C pbvdxznsdkked568-482 mg/dL: High risk LDL-C concentration HDL-LDL Cholesterol is affected by a number of factors suchas smoking, age and sex.~~~~~~~~~~~~~~~~ ~~~~~~~~~~~~~~~~~~~~ ~~~~~~~~~~~~~~~~~~~~ ~~~~ HGBA1C - GLYCOSYLATED [id number] 20:27:00* Test Item Value Reference Range Interpretation Comme nts GLYCOSYLATED HEMOGLOBIN (HA1C) (test code = GLYHGB) 5.5 % 0-5.9 N Current darci delines recommend a treatment goal of <7% fordiabetic patients. A1c may be overestimated in diabeticpatients exhibiting poor control and who are alsoheterozygous or homozygous for HgbS or HgbC. Totalglycohemoglobin is a better indicator of diabetic control inpatients with these hemoglobin variants. - XR CHEST 1 [id number] 19:20:00 [facility] 1970 Sex: F FAX: Sarahi Odonnell MD [phone] [place]: [facility]: ADM FAX: Contreras Dailey MD FAX: Leobardo Christy [phone] Name: AGUSTÍN LEIGH [facility] : 1970 Age/S: 52/F [address] Unit #: [id number] Loc: [place] [address] Phys: Contreras Dailey MD R3 Acct: [id number] Dis Date: Status: ADM IN PHONE #: [phone] Exam Date: 01/28/2023 190 FAX #: [phone] Reason: code stroke EXAMS: CPT CODE: [id number] XR CHEST 1 V 70689 EXAMINATION: - XR CHEST 1 V INDICATION: code stroke COMPARISON: 08/06/2021 LOCATION: H96 FINDINGS: Clear lungs. No visible pleural fluid or pneumothorax. Normal cardiac silhouette. IMPRESSION: No acute radiographic abnormality. at 1920 Reported and signed by: Lizandro Sifuentes MD CC: Sarahi Odonnell MD; Contreras Dailey MD; Alexandra Craig MD Technologist: EDMAR CAST Trnscrd Date/Time/By: 01/28/2023 (1919) : By: [email or web address] PAGE 1 Signed Report FAX: Sarahi Odonnell MD [phone] [place]: [facility]: ADM FAX: Contreras Dailey MD FAX: Leobardo Maravilla [phone] Name: AGUSTÍN LEIGH [facility] : 1970 Age/S: 52/F [address] Unit #: [id number] [place]: [place] [address] Phys: Contreras Dailey MD R3 Acct: [id number] Dis Date: Status: ADM IN PHONE #: [phone] Exam Date: 01/28/20231904 FAX #: [phone] Reason: code stroke EXAMS: CPT CODE: [id number] XR CHEST 1 V 21728 (Continued) Orig Print D/T: S: 01/28/2023 (1922) PAGE 2 Signed ReportBASIC METABOLIC [id number] 18:54:00* Test Item Value Reference Range Interpretation Comme nts SODIUM (test code = NA) 141 mmol/L 137-145 N POTASSIUM (test code = K) 3.7 mmol/L 3.4-5.0 N CHLORIDE (test code = CL) 107 mmol/L 98-107 N CARBON DIOXIDE (test code = CO2) 24 mmol/L 22-30 N ANION GAP (test code = GAP) 14 mmol/L 10-20 N GLUCOSE (test code = GLU) 100 mg/dL 74-106 N BLOOD UREA NITROGEN (test code = BUN) 14 mg/dL 7-17 N GLOMERULAR FILTRATION RATE (test code = GFR) 88 mL/min The Glomerular Filtration Rate is a calculated parameterbased on serum Creatinine, patient age and sex. GFR valuesless than 60 mL/min/1.73 square meters are indicative ofChronic Kidney Disease. Values less than 15 mL/min/1.73square meters indicate Kidney failure. The calculation forGFR is based on the CKD-EPI (2020) calculation. This formulais race indifferent and is the recommended formula for GFRby the National Kidney Foundation for Adults.The GFR will not calculate if the sex is unknown or if thepatient's age is <18 years. CREATININE (test code = CREAT) 0.8 mg/dL 0.5-1.0 N CALCIUM (test code = CA) 9.1 mg/dL 8.4-10.2 N INDEX HEMOLYSIS (test code = HEMINDEX) < 15 Index/DL 0-100 N [id number] 18:54:00* Test Item Value Reference Range Interpretation Comme nts TROPONIN-I (test code = TROPI) < 0.012 ng/mL 0.012-0.033 L Please be advised of the updated reference ranges for the new Chemistry instrumentation. VITROS TROPONIN I CRITERIANORMAL PATIENT W/O CIRCULATING TNI: 0.012-0.033 ng/mLAMI DIAGNOSTIC CUTOFF: >/= 0.120 ng/mL~~~~~~~~~~~~~~~~~~~~~~ ~~~~~~~~~~~~~~~~~~~~~~~~~~~ ~~~~~~~~~~The use of serial sampling and testing protocol is arecommended practice.An elevated troponin level alone is often not sufficient fordiagnosis of myocardial infarction. Troponin results obtained by different assays may vary.Evaluation of the extent of myocardial damage based onincrease of troponin would be valid only if similarmethodology is used.~~~~~~~~~~~~~~~~~~~~~~ ~~~~~~~~~~~~~~~~~~~~~~~~~~~ ~~~~~~~~~~ A POSITIVE BIAS MAY OCCUR FOR PATIENTS TAKING BIOTIN SUPPLEMENTS~~~~~~~~~~~~~~~~ ~~~~~~~~~~~~~~~~~~~~~~~~~~~ ~~~~~~~~~~~~~~~~ - CT ANGIO [id number] 18:22:00 [facility] 1970 Sex: F FAX: Sarahi Odonnell MD [phone] [place]: St: PRE FAX: Contreras Dailey MD FAX: Leobardo Maravilla [phone] Name: AGUSTÍN LEIGH [facility] : 1970 Age/S: 52/F [address] Unit: [id number]: [place] [address] Phys: Contreras Dailey MD R3 Acct: [id number] Dis Date: Status: PRE ER PHONE #: [phone] Exam Date: 01/28/20231757 FAX #: [phone] Reason: right facial droop EXAMS: CPT CODE: [id number] CT ANGIO HEAD [address] EXAM: - CT ANGIO NECK, - CT ANGIO HEAD LOCATION: H47 HISTORY: right facial droop COMPARISON: None available at the time of interpretation. TECHNIQUE: CTA head: Axial CT images were obtained from the skull base to the vertex after intravenous contrast utilizing CTA protocol. Coronal and sagittal maximum intensity projection images are provided. CTA neck: Axial CT images were obtained from the aortic arch to the skull base after intravenous contrast utilizing CTA protocol. Coronal and sagittal maximum intensity projection images are provided. This exam was performed according to our departmental dose-optimization program, which includes automatedexposure control, adjustment of the mA and/or kV according to patient size and/or use of iterative reconstruction technique FINDINGS: For the purposes of this dictation, hemodynamically significant stenosis is characterized as greater than 50%. CTA head: The petrous, cavernous, and clinoid internalcarotid arteries do not demonstrate hemodynamically significant stenoses. The anterior and middle c erebral arteries do not demonstrate hemodynamically significant stenoses. [place] of both vertebral arteries into the basilar. Basilar artery and posterior cerebral arteries are do not demonstratehemodynamically significant stenoses. The dural venous sinuses are patent. CTA neck: PAGE 1 Signed Report (CONTINUED) FAX: Sarahi Odonnell MD [phone] [place]: St: PRE FAX: Contreras Dailey MD FAX: Angela ManrenLeobardo cerna [phone] Name: AGUSTÍN LEIGH [facility] : 1970 Age/S: 52/F [address] Unit: [id number] Loc: [place] [address] Phys: Contreras Dailey MD R3 Acct: [id number] Dis Date: Status: PRE ER PHONE #: [phone] Exam Date: 01/28/2023 0516 FAX #: [phone] Reason: right facial droop EXAMS: CPT CODE: [id number] CT ANGIO HEAD [address] (Continued) The origins of the great vessels from the aortic arch do not demonstrate hemodynamically significant stenoses. The bilateral common carotid arteries and bulbs are without hemodynamically significant stenosis. The internal carotid arteries do not demonstrate hemodynamically significant stenosis. The vertebral arteries are codominant. No incidental soft tissue findings. IMPRESSION: 1. No intracranial large vessel occlusion. at 1822 Reported and signed by: Anurag Pittman MD CC: Sarahi Odonnell MD; Contreras Dailey MD; Alexandra Craig MD Technologist: NIKHIL REYNOSO, RT(R,CT); THERON MARCOS; ... Trnscrd Dt/Tm: 01/28/2023 (1821) t.STASR.HV2 Orig Print D/T: S: 01/28/2023 (1825 PAGE 2 Signed Report- CT ANGIO [id number] 18:22:00 [facility] : 1970 Sex: F FAX: Sarahi Odonnell MD [phone] [place]: St: PRE FAX: Contreras Dailey MD FAX: Leobardo Maravilla [phone] Name: AGUSTÍN LEIGH [facility] : 1970 Age/S: 52/F [address] Unit: [id number]: [place] [address] Phys: Contreras Dailey MD R3 Acct: [id number] Dis Date: Status: PRE ER PHONE #: [phone] Exam Date: 01/28/2023 7446 FAX #: [phone] Reason: right facial droop EXAMS: CPT CODE: [id number] CT ANGIO NECK [address] EXAM: - CT ANGIO NECK, - CT ANGIO HEAD LOCATION: H47 HISTORY: right facial droop COMPARISON: None available at the time of interpretation. TECHNIQUE: CTA head: Axial CT images were obtained from the skull base to the vertex after intravenous contrast utilizing CTA protocol. Coronal and sagittal maximum intensity projection images are provided. CTA neck: Axial CT images were obtained from the aortic arch to the skull base after intravenous contrast utilizing CTA protocol. Coronal and sagittal maximum intensity projection images are provided. This exam was performed according to our departmental dose-optimization program, which includes automatedexposure control, adjustment of the mA and/or kV according to patient size and/or use of iterative reconstruction technique FINDINGS: For the purposes of this dictation, hemodynamically significant stenosis is characterized as greater than 50%. CTA head: The petrous, cavernous, and clinoid internalcarotid arteries do not demonstrate hemodynamically significant stenoses. The anterior and middle ce rebral arteries do not demonstrate hemodynamically significant stenoses. [place] of both vertebral arteries into the basilar. Basilar artery and posterior cerebral arteries are do not demonstrate hemodynamically significant stenoses. The dural venous sinuses are patent. CTA neck: PAGE 1 Signed Report (CONTINUED) FAX: Sarahi Odonnell MD [phone] [place]: St: PRE FAX: Contreras Dailey MD FAX: Leobardo Solis [phone] Name: AGUSTÍN LEIGH [facility] : 1970 Age/S: 52/F [address] Unit: [id number] Loc: [place] [address] Phys: Contreras Dailey MD R3 Acct: [id number] Dis Date: Status: PRE ER PHONE #: [phone] Exam Date: 01/28/2023 1759 FAX #: [phone] Reason: right facial droop EXAMS: CPT CODE: [id number] CT ANGIO NECK [address] (Continued) The origins of the great vessels from the aortic arch do not demonstrate hemodynamically significant stenoses. The bilateral common carotid arteries and bulbs are without hemodynamically significant stenosis. The internal carotid arteries do not demonstrate hemodynamically significant stenosis. The vertebral arteries are codominant. No incidental soft tissue findings. IMPRESSION: 1. No intracranial large vessel occlusion. at 1822 Reported and signed by: Anurag Pittman MD CC: Sarahi Odonnell MD; Contreras Dailey MD; Alexandra Craig MD Technologist: NIKHIL REYNOSO, RT(R,CT); THERON MARCOS; ... Trnscrd Dt/Tm: 01/28/2023 (1821) t.STASR.HV2 Orig Print D/T: S: 01/28/2023 (6 PAGE 2 Signed ReportPROTHROMBIN [id number] 18:06:00* Test Item Value Reference Range Interpretation Comme nts PROTHROMBIN TIME PATIENT (test code = PTP) 11.0 SECONDS 9.4-12.5 N INTERNATIONAL NORMAL RATIO (test code = INR) 1.0 CALLED RESULTS T O [id number] 01/28/23 AT 1804 BY [id number].The INR is to be used only for monitoring ORAL ANTICOAGULANTTHERAPY. Indication INR Value1. Prophylaxis/treatment of: Venous Thrombosis, Pulmonary Embolism 2.0 - 3.02. Prevention of systemic embolism from: Tissue heart valves 2.0 - 3.0 Acute myocardial infarction (to present systemic embolism)* 2.0 - 3.0 Valvular heart disease 2.0 - 3.0 Atrial fibrillation 2.0 - 3.03. Mechanical prosthetic valves (high risk) 2.5 - 3.5 * If oral anticoagulant therapy is elected to preventrecurrent myocardial infarction, an INR of 2.5-3.5 isrecommended, consistent with Food and Drug Administrationrecommen dations. THROMBOPLASTIN TIME [id number] 18:06:00* Test Item Value Reference Range Interpretation Comme nts THROMBOPLASTIN TIME PARTIAL (test code = PTT) 33.2 SECONDS 23.4-37.0 N Therapeutic Rang e for Heparin EFFECTIVE 08/19/12 Heparin IU/mL aPTT Seconds0.3 64.30.7 88.8 CBC W/AUTO [id number] 18:01:00* Test Item Value Reference Range Interpretation Comme nts WHITE BLOOD CELL (test code = WBC) 7.4 x10 3/uL 5.0-12.0 N RED BLOOD CELL (test code = RBC) 4.76 x10 6/uL 4.20-5.40 N HEMOGLOBIN (test code = HGB) 13.7 g/dL 12.0-16.0 N HEMATOCRIT (test code = HCT) 40.4 % 36.0-46.0 N MEAN CELL VOLUME (test code = MCV) 85 fL 81-99 N MEAN CELL HGB (test code = MCH) 28.8 pg 27-31 N MEAN CELL HGB CONCENTRATION (test code = MCHC) 33.9 g/dL 33-37 N RED CELL DISTRIBUTION WIDTH (test code = RDW) 13.2 % 11.5-15.5 N PLATELET COUNT (test code = PLT) 265 x10 3/uL 130-400 N MEAN PLATELET VOLUME (test c ode = MPV) 10.0 fL 9.4-16.4 N NEUTROPHIL % (test code = NT%) 53.9 % 43-65 N IMMATURE GRANULOCYTE % (test code = IG%) 0.4 % 0.0-2.0 N LYMPHOCYTE % (test code = LY%) 33.4 % 20.5-45.5 N MONOCYTE % (test code = MO%) 8.0 % 5.5-11.7 N EOSINOPHIL % (test code = EO%) 3.4 % 0.9-2.9 H BASOPHIL % (test code = BA%) 0.9 % 0.2-1.0 N NUCLEATED RBC % (test code = NRBC%) 0.0 % 0-1.0 N NEUTROPHIL # (test code = NT#) 3.97 x10 3/uL 2.2-4.8 N IMMATURE GRANULOCYTE # (test code = IG#) 0.03 x10 3/uL 0-0.03 N LYMPHOCYTE # (test code = LY#) 2.46 x10 3/uL 1.3-2.9 N MONOCYTE # (test code = MO#) 0.59 x10 3/uL 0.3-0.8 N EOSINOPHIL # (test code = EO#) 0.25 x10 3/uL 0.0-0.2 H BASOPHIL # (test code = BA#) 0.07 x10 3/uL 0.0-0.1 N - CT HEAD/BRAIN W/O [id number] 17:58:00 [facility] 1970 Sex: F FAX: Sarahi Odonnell MD [phone] [place]: St: PRE FAX: Contreras Dailey MD FAX: Leobardo Maravilla [phone] Name: AGUSTÍN LEIGH [facility] : 1970 Age/S: 52/F [address] Unit: [id number]: [place] [address] Phys: Contreras Dailey MD R3 Acct: [id number] Dis Date: Status: PREER PHONE #: [phone] Exam Date: 01/28/2023 174 FAX #: [phone] Reason: right facial droop EXAMS: CPT CODE: [id number] CT HEAD/BRAIN W/O CONT 48786 EXAM: - CT HEAD/BRAIN W/O CONT LOCATION: [id number]: right facial droop COMPARISON: None available at the time of interpretation. TECHNIQUE: Computerized tomography images from the skull base to the vertex were obtained. Coronal and sagittal reformatted images are provided. This exam was performed according to our departmental dose-optimization program, which includes automated exposure control, adjustment of the mA and/or kV according to patient size and/or use of iterative reconstruction technique FINDINGS: Brain: The brain parenchymalarchitecture is unremarkable. The brain parenchyma is age appropriate. There is no evidence of an acute territorial infarct. There is no midline shift. Hemorrhage: There is no CT evidence of acute intracranial hemorrhage. Ventricles: There is no evidence of hydrocephalus. Bones: There is no evidence of acute displaced calvarial fracture. Sinuses: The visualized portions of the paranasal sinuses and mastoid air cells are free of significant opacification. Other/Soft Tissues: Unremarkable. Findings were communicated to Dr. Odonnell by telephone on 01/28/2023 5:58 PM. IMPRESSION: 1. No CT evidenceof acute intracranial abnormality. PAGE 1 Signed Report (CONTINUED) FAX: Sarahi Odonnell MD [phone] [place]: St: PRE FAX: Contreras Dailey MD FAX: Leobardo Maravilla [phone] Name: AGUSTÍN LEIGH [facility] : 1970 Age/S: 52/F [address] Unit: [id number] Loc: [place] [address] Phys: Contreras Dailey MD R3 Acct: [id number] Dis Date: Status: PRE ER PHONE #: [phone] Exam Date: 01/28/2023 174 FAX #: [phone] Reason: right facial droop EXAMS: CPT CODE: [id number] CT HEAD/BRAIN W/O CONT 73321 (Continued) at 1758 Reported and signed by: Anurag Pittman MD CC: Sarahi Odonnell MD; Contreras Dailey MD; Alexandra Craig MD Technologist: NIKHIL REYNOSO, RT(R,CT); THERON MARCOS; ... Trnscrd Dt/Tm: 01/28/2023 (3857) [email or web address] Orig Print D/T: S: 01/28/2023 (1804 PAGE 2 Signed Report- XR CHEST 2 [id number] 17:40:00 [facility] : 1970 Sex: F FAX: Leobardo Watts [phone] [place]: Y[address] St: REG Name: AGUSTÍN LEIGH [facility] : 1970 Age/S: 51/F [address] Unit #: [id number] Loc: [place] [address] Phys: Alexandra Craig MD Acct: [id number] Dis Date: Status: REG CLI PHONE #: [phone] Exam Date: 08/06/2021 1721 FAX #: [phone] Reason: ENCOUNTER FOR OTHER PREPROCEDURAL EXAMINATION EXAMS: CPT CODE: [id number] XR CHEST 2 V 98288 Location code: H5 Chest 1 view Indication: ENCOUNTER FOR OTHER PREPROCEDURAL EXAMINATION. Comparison: None Findings: The heart and mediastinum are not remarkable. Costophrenic angles are clear. Lungs are clear. Bone is unremarkable for age. Impression: 1. No radiographic evidence of acute cardiopulmonary disease. at 1740 Reported and signed by: Ike Iniguez MD CC: Alexandra Craig MD Technologist: MARLEEN GRIFFITH Trnscrd Date/Time/By: 08/06/2021 (1740) : By: [email or web address] PAGE 1 Signed ReportFAX: Angela Leobardo Pedroza [phone] [place]: St: REG Name: AGUSTÍN LEIGH [facility] : 1970 Age/S: 51/F [address] Unit #: [id number] Loc: [place] [address] Phys: Alexandra Craig MD Acct: [id number] Dis Date: Status: REG CLI PHONE #: [phone] Exam Date: 08/06/2021 1721 FAX #: [phone] Reason: ENCOUNTER FOR OTHER PREPROCEDURAL EXAMINATION EXAMS: CPT CODE: [id number] XR CHEST 2 V 89640 (Continued) Orig Print D/T: S: 08/06/2021 (1743) PAGE 2 Signed Report- CT CHEST W/O [id number] 15:02:00 [facility] : 1970 Sex: F FAX: All Campos [phone] [place]: St: REG FAX: Leobardo Maravilla [phone] Name: AGUSTÍN LEIGH [facility] : 1970 Age/S: 51/F [address] Unit: [id number] Loc: [place] [address] Phys: All Macdonald Acct: [id number] Dis Date: Status: REG CLI PHONE#: [phone] Exam Date: 03/22/2021 1355 FAX #: [phone] Reason: ACUTE COUGH EXAMS: CPT CODE: [id number] CT CHEST W/O CONTRAST [address] without contrast. Location Code: D4 CLINICAL HISTORY: ACUTE COUGH COMPARISON: None Technique: Helical CT of the chest was performed without intravenouscontrast. 5 mm axial, sagittal and coronal images were obtained. One or more of the following dose reduction techniques were used: Automated exposure control, adjustment of the mA and or KV accordingto patient size, and/or utilization of iterative reconstruction [...] MD Technologist: SHANNA CARRENO Trnscrd Dt/Tm: 03/22/2021 (9932) [email or web address] Orig Print D/T: S: 03/22/2021 (1505 PAGE 1Signed Report- CT HEART W CN STR [facility] 2021-02-22 09:25:00 [facility] : 1970 Sex: F FAX: Leobardo Watts [phone] [place]: St: PRE Name: AGUSTÍN LEIGH [facility] : 1970 Age/S: 50/F [address] Unit: [id number] Loc: [place] [address] Phys: Alexandra Craig MD Acct: [id number] Dis Date: Status: PRE CLI PHONE #: [phone] Exam Date: 02/19/2021 1117 FAX #: [phone] Reason: FAMILY HISTORY OF ISCHEMIC HEART DISEASE AND OT EXAMS: CPT CODE: [id number] CT HEART W CN STR [facility] [address] HISTORY: Family history of heart disease COMPARISON: None TECHNIQUE: Prospective gating 64 slice coronary CTA was obtained for department protocol. Images were obtained and reviewed on 3-D workstation rendering 2D and 3D multiplanar, MIP and Volume Rendering images. FINDINGS: Quality: Overall examination is of good quality. Only limited motion artifacts are present. Morphology: Cardial chambers: Normal. Pericardium: Normal. GENERAL: Coronary artery system isright dominant. Origins: Left Main: Patent without significant disease or stenosis LAD: Patent without significant disease or stenosis DIAGONALS: Patent without significant disease or stenosis LCX: Patent without significant disease or stenosis OM: Patent without significant disease or stenosis RCA: Patent without significant disease or stenosis identified Extracardiac: Lungs are clear. IMPRESSION: 1. No significant disease or stenosis. PAGE 1 Signed Report (CONTINUED) FAX: Celina Maravilla [phone] [place]: St: PRE Name: AGUSTÍN LEIGH [facility] : 1970 Age/S: 50/F [address] Unit: [id number] Loc: [place] [address] Phys: Alexandra Craig MD Acct: [id number] Date: Status: PRE CLI PHONE #: [phone] Exam Date: 02/19/2021 1117 FAX #: [phone] Reason: FAMILY HISTORY OF ISCHEMIC HEART DISEASE AND OT EXAMS: CPT CODE: [id number] CT HEART W CN STR [facility] [address] (Continued) at 0925 Reportedand signed by: Miky Muñiz MD CC: Alexandra cannon MD Technologist: Lea Lee Trnscrd Dt/Tm: 02/22/2021 (924) [email or web address] Orig Print D/T: S: 02/22/2021 (28 PAGE 2 Signed ReportBEDSIDE [id number] 12:34:00* Test Item Value Reference Range Interpretation Comme nts BEDSIDE CREATININE (test cod e = CREATBED) 0.8 MG/DL 0.5-1.0 N - DOP ART 1-2 LEVELS [id number] 10:27:00 [facility] [place] : 1970 Sex: F FAX: Leobardo Watts [phone] [place]: [address]: REG Name: AGUSTÍN LEIGH [facility] Sita : 1970 Age/S: 50/F [address] Unit #: [id number] Loc: [place] [address] Phys: Alexandra Craig MD Acct: [id number] Dis Date: Status: REG CLI PHONE #: [phone] Exam Date: 02/19/2021 1005 FAX #: [phone] Reason: HYPERLIPIDEMIA EXAMS: CPT CODE: [id number] DOP ART 1-2 LEVELS FLORENCIO 23310 EXAMINATION: - DUP LE ART FLORENCIO, - DOP ART 1-2 LEVELS FLORENCIO COMPARISON: None HISTORY: Hyperlipidemia LOCATION CODE: C3 TECHNIQUE: Grayscale, color Doppler and spectral waveform analysis of the arterialsystems of both lower extremities was performed. FINDINGS: RIGHT LOWER EXTREMITY:No significant plaquing is seen in the arterial structures of the right lower extremity and no areas of focal aneurysm or stenosis are identified. Triphasic waveforms are seen throughout the arterial structures of theright lower extremity. The right BRITNEY is 1.0 LEFT LOWER EXTREMITY: No significant plaquing is seen in the arterial structures of the left lower extremity, and no areas of focal aneurysm or stenosis are identified. Triphasic waveforms are seen throughout the arterial structures the left lower extremity with the exception of the dorsalis pedis artery, which is biphasic waveforms. The left BRITNEY is 1.0IMPRESSION: No evidence of hemodynamically significant stenosis in either lower extremity Electr onically Signed by Marge Persaud MD on 02/19/2021 at 1027 Reported and signed by: Marge Persaud [facility]: Alexandra Craig MD Technologist: JASMINE READ Trnscrd Date/Time/By: 02/19/2021 (1027) : By: [email or web address] PAGE 1 Signed Report FAX: Leobardo Maravilla [phone] [place]: St: R EG - Name: AGUSTÍN LEIGH [facility] : 1970 Age/S: 50/F [address] Unit #: [id number] Loc: [place] [address] Phys: Alexandra Pedroza MD Acct: [id number] Dis Date: Status: REG CLI PHONE #: [phone] Exam Date: 02/19/2021 1005 FAX #: [phone] Reason: HYPERLIPIDEMIA EXAMS: CPT CODE: [id number] DOP ART 1-2 LEVELS FLORENCIO 34385 (Continued) Orig Print D/T: S: 02/19/2021 (1030) PAGE 2Signed Report- DUP LE ART [id number] 10:27:00 [facility] AGUST[facility]N [place] : 1970 Sex: F FAX: Leobardo Watts [phone] [place]: [address] St: REG Name: LEIGH,AGUSTÍN COLEMAN [facility] : 1970 Age/S: 50/F [address] Unit #: [id number] Loc: [place] [address] Phys: Alexandra Craig MD Acct: [id number] Dis Date: Status: REG CLI PHONE #: [phone] Exam Date: 02/19/2021 1005 FAX #: [phone] Reason: HYPERLIPIDEMIA EXAMS: CPT CODE: [id number] DUP LE ART [place] [address] EXAMINATION: - DUP LE ART FLORENCIO, - [...] CC: Alexandra Craig MD Technologist: JASMINE READ [facility] Date/Time/By: 02/19/2021 (1027) :By: [email or web address] PAGE 1 Signed Report FAX: Leobardo Maravilla [phone] [place]: St: REG---- Name: AGUSTÍN LEIGH [facility] : 1970 Age/S: 50/F [address] Unit #: [id number] Loc: [place] [address] Phys: Alexandra Pedroza MD Acct: [id number] Dis Date: Status: REG CLI PHONE #: Exam Date: 02/19/2021 1005 FAX #: [phone] Reason: HYPERLIPIDEMIA EXAMS: CPT CODE:[id number] DUP LE ART [place]OR[place] 25124 (Continued) Orig Print D/T: S: 02/19/2021 (1030) PAGE 2 Signed Report- DUP EXTRACRANIAL FLORENCIO 2021-02-19 10:25:00 [facility] : 1970 Sex: F FAX: Leobardo Watts [phone] [place]: St: REG Name: AGUSTÍN LEIGH [facility] : 1970 Age/S: 50/F [address] Unit #: [id number] Loc: [place] [address] Phys: Alexandra Craig MD Acct: [id number] Dis Date: Status: REG CLI PHONE #: [phone] Exam Date: 02/19/2021 1005 FAX #: [phone] Reason: HYPERLIPIDEMIA EXAMS: CPT CODE: [id number] DUP EXTRACRANIAL FLORENCIO 51900OLSOVSWFHLE: - DUP EXTRACRANIAL FLORENCIO COMPARISON: None HISTORY: [...] 2003; 229; 340-346. at 1025 Reported and signed by: Marge Persaud MD PAGE 1 Signed Report (CONTINUED) FAX: Leobardo Watts [phone] [place]: St: REG -- Name: AGUSTÍN LEIGH [facility] : 1970 Age/S: 50/F [address] Unit #: [id number] Loc: [place] [address] Phys: Alexandra Pedroza MD Acct: [id number] Dis Date: Status: REG CLI PHONE #: [phone] Exam Date: 02/19/2021 1005 FAX #: [phone] Reason: HYPERLIPIDEMIA EXAMS: CPT CODE: [id number] DUP EXTRACRANIAL FLORENCIO 35006 (Continued) CC: Alexandra Craig MD Technologist: JASMINE READ Date/Time/By: 02/19/2021 (1025) : By: [email or web address] PAGE 2 Signed Report FAX: Leobardo Maravilla [phone] [place]: St: REG Name: AGUSTÍN LEIGH [facility] : 1970 Age/S: 50/F [address] Unit #: [id number] Loc: [place] [address] Phys: Alexandra Craig MD Acct: [id number] Dis Date: Status: REG CLI PHONE #: [phone] Exam Date: 02/19/2021 1005 FAX #: [phone] Reason: HYPERLIPIDEMIA EXAMS: CPT CODE: [id number] DUP EXTRACRANIAL FLORENCIO 30445 (Continued) Orig Print D/T: S: 02/19/2021 (4696) PAGE 3 Signed Report- XR HAND 3 + V [id number] 11:52:00FAX: Leobardo Maravilla [phone] [place]: St: REG Name: AGUSTÍN LEIGH [facility] : 1970 Age/S: 48/F [address] Unit #: [id number] Loc: [place] [address] Phys: Alexandra Craig MD Acct: [id number] Dis Date: Status: REG CLI PHONE #: [phone] Exam Date: 05/06/2018 1055 FAX #: [phone] Reason: PAIN IN RIGHT FINGER(S),PAIN IN LEFT FINGER(S) EXAMS: CPT CODE: [id number] XR HAND 3 + [place] [address] EXAM: - XR HAND 3 + V BI HISTORY: PAIN IN RIGHT FINGER(S),PAIN IN LEFT FINGER(S) COMPARISON: None available time of interpretation. FINDINGS: Frontal, oblique, and lateral views of both hands are provided. No acute fracture or malalignment. No soft tissue findings are appa rent. IMPRESSION: No acute findings. at 1152 Reported and signed by: Anurag Pittman MD CC: Alexandra Craig MD Technologist: Meghan Turner [facility] Date/Time/By: 05/06/2018 (1152) : By: [email or web address] PAGE 1 Signed Report FAX: Leobardo Watts [phone] [place]: St: REG Name: AGUSTÍN LEIGH [facility] : 1970 Age/S: 48/F [address] Unit #: [id number] Loc: [place] [address] Phys: Alexandra Craig MD Acct: [id number] Dis Date: Status: REG CLI PHONE #: [phone] Exam Date: 05/06/2018 1055 FAX #: [phone] Reason: PAIN IN RIGHT FINGER(S),PAIN IN LEFT FINGER(S) EXAMS: CPT CODE: [id number] XR HAND 3 + [place] [address] (Continued) Orig Print D/T: S: 05/06/2018 (1155) PAGE 2 Signed Report Notes Date/Time Note Provider Source 2023-02-07 08:46:00 0730-8154 [facility] [address] [place] [address] PATIENT NAME: AGUSTÍN LEIGH ADMIT DATE: 01/28/23 ACCOUNT NO: [id number] ROOM NO: [place] [address] AGE: 52 REPORT TYPE: 360 - QUERY RESPONSE DOCUMENT SEX: F ADMITTING PHYSICIAN:Franko Wood MD ATTENDING PHYSICIAN:Franko Wood MD Provider Query QUERY TEXT: Condition General 360MD Query related questions should be directed to:[facility] Coding Query Helpline Based on your clinical judgement, can you please clarify if TIA was confirmed, TIA not confirmed, or other more appropriate diagnosis? The patient's Clinical Indicators include: TIA -Hospitalist Discharge Summary 01/30/2023 Stated Complaint TIA, PARESTHESIA-ED PHYSICIAN RECORD 01/28/2023 right facial droop- s/p tnk-Neurology Progress Note 01/30/2023 SEVERE WEAKNESS ON ONE SIDE-Discharge Instructions + 01/30/2023 Tenecteplase 50 mg Inj-MAR Options provided: -- Respond - Create new note now -- Dismiss - Not applicable / Not valid -- Dismiss - Clinically unable to determine / Unknown -- Assign to another provider QUERY RESPONSE: valero palsy Query created by: Praneeth Norman on 02/04/2023 1:34 AM at 0846 PATIENT NAME: AGUSTÍN LEIGH [facility] 2023-01-30 12:50:00 [facility] Hospitalist Discharge Summary REPORT#:[id number] REPORT STATUS: Signed REPORT INITIALIZATION DATE:01/30/23 TIME: 1250 PATIENT: AGUSTÍN LEIGH UNIT #: [id number] ROOM/BED: [place] [address]-A : [birth year] AGE: 52 SEX: F ATTEND: Franko Wood MD ADM AUTHOR: Al Landrum DO REPT SERVICE DT/TIME: 01/30/23 1250 * ALL edits or amendments must be made on the electronic/computer document * See Addendum General Information Discharge date: 01/30/23 Discharge diagnosis: see free text Hospital course: see free text Free Text DxA P Notes Free text DxA P notes: 52 yo wf- she was at the diner with her daughter when she noticed it that she could not drink- there was some weakness to her lips; the right side of face felt numb. She went into the bathroom and noted that there was right facial droop. It appears that there was some tingling in her right arm and leg too. Daughter then called ambulance for her. CT head and cta head/ neck were negative. In Ed, she had tnk done. She feels that it is harder to close her right eye. She reports some tight sensation to right arm and right lower leg Pt got TNK, repeat CTH negative. MRI negative. 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 Will DC on prednisone and valtrex. OP FU with PCP Med Rec Med Rec Discharge meds: Stop taking the following medications: Hydrocodone/Acetaminophen (HYDROcodone/APAP 7.5/325) 7.5 MG-325 MG TAB 1 TABLET ORAL EVERY 4 HOURS NEEDED CELECOXIB (CeleBREX) 50 MG CAP Continue taking these medications: MONTELUKAST (SINGULAIR) 10 MG TAB Fexofenadine HCl (Mackenzie) 30 MG TABLET Start taking the following new medications: predniSONE (predniSONE) 20 MG TAB 60 MILLIGRAM ORAL DAILY. Days = 7 Qty = 21 No Refills Instructions: UNTIL FINISHED (5 DAYS) valACYclovir (VALTREX) 1,000 MG TAB 1,000 MILLIGRAM ORAL EVERY 8 HOURS. Days = 7 Qty = 21 No Refills Instructions: X7 DAYS POLYVINYL ALCOHOL (ARTIFICIAL TEARS 1.4% SOLN) 1.4 % OPHTH.SOLN 1 DROPS EACH EYE DIRECTED. Qty = 15 No Refills Instructions: According to label instructions Objective Head/Eyes: atraumatic, clear cornea, EOMI, normal conjunctiva/sclera, normal eyelids/periorb., normocephalic, PERRL Cardiovascular: normal capillary refill, regular rate rhythm Respiratory: clear to auscultation, no distress Abdomen: non-tender, normal bowel sounds, soft, no distention, no guarding, no hernia, no mass/organomegaly, no rebound Extremities: moves all, normal capillary refill, normal range of motion, no edema Musculoskeletal: normal inspection Neuro/SHEET MANAGER: alert, oriented X 3 Lymphatics: axilla normal, inguinal normal, neck normal, no lymphadenopathy Psychiatry: normal affect, normal judgment/insight, normal mood, not homicidal, not suicidal, no hallucinations Results Findings/Data: Laboratory Tests: 01/30 01/30 01/30 01/30 01/29 1137 0724 0035 0034 1918 Chemistry Sodium (135 - 147 MMOL/L) 142 Potassium (3.6 - 5.2 MMOL/L) 3.7 Chloride (98 - 108 MMOL/L) 109 H Carbon Dioxide (21 - 32 mmol/L) 24 BUN (6 - 21 MG/DL) 23 H Creatinine (0.6 - 1.3 mg/dL) 0.9 Glomerular Filtr Rate (mL/min) 76 Glucose (70 - 110 mg/dL) 113 H POC Glucose (74 - 106 MG/DL) 110 H 97 101 123 H Calcium (8.7 - 10.5 mg/dL) 8.1 L Hematology WBC (5.0 - 12.0 x10 3/uL) 11.9 RBC (4.20 - 5.40 x10 6/uL) 4.25 Hgb (12.0 - 16.0 g/dL) 12.3 Hct (36.0 - 46.0 %) 36.0 MCV (81 - 99 fL) 85 MCH (27 - 31 pg) 28.9 MCHC (33 - 37 g/dL) 34.2 RDW (11.5 - 15.5 %) 13.4 Plt Count (130 - 400 x10 3/uL) 275 MPV (9.4 - 16.4 fL) 10.5 Neut % (Auto) (43 - 65 %) 66.2 H Lymph % (Auto) (20.5 - 45.5 %) 25.0 Blackford % (Auto) (5.5 - 11.7 %) 7.0 Eos % (Auto) (0.9 - 2.9 %) 0.8 L Baso % (Auto) (0.2 - 1.0 %) 0.5 Neut # (Auto) (2.2 - 4.8 x10 3/uL) 7.85 H Lymph # (Auto) (1.3 - 2.9 x10 3/uL) 2.96 H Blackford # (Auto) (0.3 - 0.8 x10 3/uL) 0.83 H Eos # (Auto) (0.0 - 0.2 x10 3/uL) 0.10 Baso # (Auto) (0.0 - 0.1 x10 3/uL) 0.06 Immature Gran % (0.0 - 2.0 %) 0.5 Nucleated RBC % (0 - 1.0 %) 0.0 Radiology data: Recent Impressions: MAGNETIC RESONANCE IMAGING - MRI BRAIN W/O CONTRAST 01/29 4897 Report Impression - Status: SIGNED Entered: 01/29/20237 IMPRESSION: 1. No acute intracranial abnormality. No acute ischemic infarct or mass lesion. Impression By: Gagan Alejandre MD Results: echo personally reviewed Discharge Instructions PCP Discharge to: Home/Self Care Additional Discharge Routines: PCP Follow-Up Diet: Regular Activity: As Tolerated Follow-up Appointments PCP follow-up: PCP: Alexandra Craig MD PCP follow up timeframe: In 1-2 weeks Special instructions: Valero palsy at 1251 Addendum 1: 01/30/23 1252 by Al Landrum DO 1. Right sided facial droop Neuro #Right sided facial droop #S/p TNK on 01/28 Differential: Acute Valero's Palsy vs TIA CT head negative for acute intracranial bleed. CTA of head and neck negative for large vessel occlusion. MRI of brain negative for acute infarct. PT/OT cleared patient for d/c to home once medically cleared. No need for rehab. - ECHO with bubble study pending - On Lipitor 80mg daily -Will follow up with neurology to see if they want to treat as TIA with DAPT for 21 days vs steroids for acute valero's palsy or both? CV #Hyperlipidemia Lipid panel significant for LDL 152. -Started Lipitor 80 mg daily PULM -Patient on room air without respiratory distress. at 1252 RPT #:[id number] END OF REPORT [facility] 2023-01-30 12:38:00 [facility] Neurology Progress Note REPORT#:[id number] REPORT STATUS: Signed REPORT INITIALIZATION DATE:01/30/23 TIME: 1238 PATIENT: AGUSTÍN LEIGH UNIT #: [id number] ROOM/BED: [address] : [birth year] AGE: 52 SEX: F ATTEND: Franko Wood MD ADM AUTHOR: Gaurang Townsend DO REPT SERVICE DT/TIME: 01/30/23 1238 * ALL edits or amendments must be made on the electronic/computer document * Subjective Comments: feels better, no new event; had brain mri done Objective General VS: Last Documented: Result Date Time Temp 98.0 01/30 1200 Pulse Ox 99 01/30 1200 Pulse 76 01/30 1200 Resp 33 01/30 1200 B/P 151/72 01/30 1100 B/P Mean 103 01/30 1100 O2 Delivery Room air 01/30 0400 PATIENT WEIGHT: Weight (lb): 167 Weight (oz): 8.82 Weight (kg): 75.75 Medications Current Home Medications Hydrocodone/Acetaminophen (HYDROcodone/APAP 7.5/325) 1 TAB PO Q4HPRN CELECOXIB (CeleBREX) MONTELUKAST (SINGULAIR) Fexofenadine HCl (Mackenzie) Active Meds + DC'd Last 24 Hrs Enoxaparin Sodium (LOVENOX) 40 MG DAILY SUBQ Aspirin (ASPIRIN CHEWABLE) 81 MG DAILY PO Clopidogrel Bisulfate (PLAVIX) 75 MG DAILY PO Carboxymethylcellulose Sodium (REFRESH TEARS) 1 DROP QID PRN PRN RIGHT EYE Atorvastatin Calcium (LIPITOR) 80 MG DAILY PO Mupirocin (BACTROBAN 2% 22 GM OINTMENT) 1 APPLIC BID NASAL (DC) Labetalol HCl (TRANDATE 4ML, GENERIC LABETALOL) 10 MG Q1H PRN PRN IV Diphenhydramine HCl (BENADRYL INJ) 50 MG Q6H PRN PRN IV (DC) Famotidine (PEPCID) 20 MG Q12H IV (DC) Sodium Chloride (NACL 0.9%) 10 ML Nicardipine HCl (niCARdipine 40 mg/NS 200 mL) 200 ML TITRATE IV (DC) Perflutren Lipid Microsphere (DEFINOtus Labs) DIRECTED ONCE PRN IV (DC) Sodium Chloride (NACL 0.9% 10ML SYRINGE) DIRECTED ONCE PRN IV (DC) Sodium Chloride (SODIUM CHLORIDE FLUSH) 5 ML ONCE PRN IV (DC) Sodium Chloride (SODIUM CHLORIDE 0.9%) 1,000 ML .Q20H ONE IV (DC) Physical Exam General appearance: alert, awake, no acute distress, pleasant, conversational, mental status normal, no respiratory distress, right facial droop Results Findings/Data: Laboratory Tests 01/30 01/30 01/30 01/29 0724 0035 0034 1918 Chemistry Sodium (135 - 147 MMOL/L) 142 Potassium (3.6 - 5.2 MMOL/L) 3.7 Chloride (98 - 108 MMOL/L) 109 H Carbon Dioxide (21 - 32 mmol/L) 24 BUN (6 - 21 MG/DL) 23 H Creatinine (0.6 - 1.3 mg/dL) 0.9 Glomerular Filtr Rate (mL/min) 76 Glucose (70 - 110 mg/dL) 113 H POC Glucose (74 - 106 MG/DL) 97 101 123 H Calcium (8.7 - 10.5 mg/dL) 8.1 L Laboratory Tests 01/30 0034 Hematology WBC (5.0 - 12.0 x10 3/uL) 11.9 RBC (4.20 - 5.40 x10 6/uL) 4.25 Hgb (12.0 - 16.0 g/dL) 12.3 Hct (36.0 - 46.0 %) 36.0 MCV (81 - 99 fL) 85 MCH (27 - 31 pg) 28.9 MCHC (33 - 37 g/dL) 34.2 RDW (11.5 - 15.5 %) 13.4 Plt Count (130 - 400 x10 3/uL) 275 MPV (9.4 - 16.4 fL) 10.5 Neut % (Auto) (43 - 65 %) 66.2 H Lymph % (Auto) (20.5 - 45.5 %) 25.0 [place] % (Auto) (5.5 - 11.7 %) 7.0 Eos % (Auto) (0.9 - 2.9 %) 0.8 L Baso % (Auto) (0.2 - 1.0 %) 0.5 Neut # (Auto) (2.2 - 4.8 x10 3/uL) 7.85 H Lymph # (Auto) (1.3 - 2.9 x10 3/uL) 2.96 H Blackford # (Auto) (0.3 - 0.8 x10 3/uL) 0.83 H Eos # (Auto) (0.0 - 0.2 x10 3/uL) 0.10 Baso # (Auto) (0.0 - 0.1 x10 3/uL) 0.06 Immature Gran % (0.0 - 2.0 %) 0.5 Nucleated RBC % (0 - 1.0 %) 0.0 Radiology Data: Recent Impressions: MAGNETIC RESONANCE IMAGING - MRI BRAIN W/O CONTRAST 01/29 6240 Report Impression - Status: SIGNED Entered: 01/29/2023 9133 IMPRESSION: 1. No acute intracranial abnormality. No acute ischemic infarct or mass lesion. Impression By: MohinderALGagan Richardson MD Diagnosis, Assessment Plan Free Text A P: A 1. presumed acute CVA with right facial droop- s/p tnk. (paresthesia to right arm/ leg?) Neg brain ct and cta head/ neck. It appears to be acute right Valero' s palsy- Negative brain mri etc. P -no new plan -no need for dapt -ok for dc per neuro- for Valero's- can do steroids, valacyclovir and tear drops -d/w medicine team- ok for dc per neuro at 1239 RPT #:[id number] END OF REPORT [facility] 2023-01-30 08:16:00 [facility] ([facility]) Critical Care Progress Note REPORT#:[id number] REPORT STATUS: Signed REPORT INITIALIZATION DATE:01/30/23 TIME: 815 PATIENT: AGUSTÍN LEIGH UNIT #: [id number] ROOM/BED: [address] : [birth year] AGE: 52 SEX: F ATTEND: Franko Wood MD ADM AUTHOR: Neftali Carbajal DO R1 REPT SERVICE DT/TIME: 01/30/23 08 * ALL edits or amendments must be made on the electronic/computer document * Neftali Carbajal 01/30/23 0816: Subjective Chief complaint: facial droop HPI: Patient is assessed at bedside. She reports noting more weakness with smiling this morning with persistent facial droop on right. Otherwise, no new complaints. Patient was downgraded overnight. Review of Systems Free Text ROS Notes Free Text ROS Notes: 10 point ROS negative unless mentioned in HPI. Objective General VS/I O Last Documented: Result Date Time Pulse Ox 99 01/30 0700 B/P 110/65 01/30 0700 B/P Mean 82 01/30 0700 Pulse 60 01/30 0700 Resp 14 01/30 0700 O2 Delivery Room air 01/30 0400 Temp 36.8 01/30 0400 24 hour I O ending at 0700: 01/30 0700 01/29 1900 Intake Total 320 Output Total Balance 320 Intake, Oral 320 Number Voids 1 Patient 75.75 kg Weight PATIENT WEIGHT: Weight (lb): 167 Weight (oz): 8.82 Weight (kg): 75.75 Medications: Active Meds + DC'd Last 24 Hrs Aspirin (ASPIRIN CHEWABLE) 81 MG DAILY PO Clopidogrel Bisulfate (PLAVIX) 75 MG DAILY PO Carboxymethylcellulose Sodium (REFRESH TEARS) 1 DROP QID PRN PRN RIGHT EYE Atorvastatin Calcium (LIPITOR) 80 MG DAILY PO Mupirocin (BACTROBAN 2% 22 GM OINTMENT) 1 APPLIC BID NASAL (DC) Labetalol HCl (TRANDATE 4ML, GENERIC LABETALOL) 10 MG Q1H PRN PRN IV Diphenhydramine HCl (BENADRYL INJ) 50 MG Q6H PRN PRN IV (DC) Famotidine (PEPCID) 20 MG Q12H IV (DC) Sodium Chloride (NACL 0.9%) 10 ML Nicardipine HCl (niCARdipine 40 mg/NS 200 mL) 200 ML TITRATE IV (DC) Perflutren Lipid Microsphere (DEFINITY) DIRECTED ONCE PRN IV (DC) Sodium Chloride (NACL 0.9% 10ML SYRINGE) DIRECTED ONCE PRN IV (DC) Sodium Chloride (SODIUM CHLORIDE FLUSH) 5 ML ONCE PRN IV (DC) Sodium Chloride (SODIUM CHLORIDE 0.9%) 1,000 ML .Q20H ONE IV (DC) Status post: TNK @ 1750 on 01/28 Physical Exam General appearance: alert, awake, oriented, no acute distress, pleasant, conversational, no respiratory distress Head/eyes: atraumatic, normocephalic Cardiovascular: normal heart sounds, regular rate and rhythm, no murmur Respiratory: aerating well, clear to auscultation, no distress Abdomen: soft, non-tender, normal bowel sounds, no distention, no guarding, no mass/organomegaly, no rebound Genitourinary: no urinary catheter Extremities: moves all Musculoskeletal normal inspection Neuro/SHEET MANAGER: alert, oriented X 3, normal speech, no motor deficits, no sensory deficits, Persistent right sided facial droop, otherwise CN II-XII intact. Skin: intact, normal color, normal temperature, no rash Psychiatry: normal affect, normal judgment/insight, normal mood Results Findings/data: Laboratory Tests 01/30 01/30 01/30 01/29 01/29 0724 0035 0034 1918 1153 Chemistry Sodium (135 - 147 MMOL/L) 142 Potassium (3.6 - 5.2 MMOL/L) 3.7 Chloride (98 - 108 MMOL/L) 109 H Carbon Dioxide (21 - 32 mmol/L) 24 BUN (6 - 21 MG/DL) 23 H Creatinine (0.6 - 1.3 mg/dL) 0.9 Glomerular Filtr Rate (mL/min) 76 Glucose (70 - 110 mg/dL) 113 H POC Glucose (74 - 106 MG/DL) 97 101 123 H 132 H Calcium (8.7 - 10.5 mg/dL) 8.1 L Laboratory Tests 01/30 0034 Hematology WBC (5.0 - 12.0 x10 3/uL) 11.9 RBC (4.20 - 5.40 x10 6/uL) 4.25 Hgb (12.0 - 16.0 g/dL) 12.3 Hct (36.0 - 46.0 %) 36.0 MCV (81 - 99 fL) 85 MCH (27 - 31 pg) 28.9 MCHC (33 - 37 g/dL) 34.2 RDW (11.5 - 15.5 %) 13.4 Plt Count (130 - 400 x10 3/uL) 275 MPV (9.4 - 16.4 fL) 10.5 Neut % (Auto) (43 - 65 %) 66.2 H Lymph % (Auto) (20.5 - 45.5 %) 25.0 Blackford % (Auto) (5.5 - 11.7 %) 7.0 Eos % (Auto) (0.9 - 2.9 %) 0.8 L Baso % (Auto) (0.2 - 1.0 %) 0.5 Neut # (Auto) (2.2 - 4.8 x10 3/uL) 7.85 H Lymph # (Auto) (1.3 - 2.9 x10 3/uL) 2.96 H Blackford # (Auto) (0.3 - 0.8 x10 3/uL) 0.83 H Eos # (Auto) (0.0 - 0.2 x10 3/uL) 0.10 Baso # (Auto) (0.0 - 0.1 x10 3/uL) 0.06 Immature Gran % (0.0 - 2.0 %) 0.5 Nucleated RBC % (0 - 1.0 %) 0.0 Laboratory Tests 01/30/23 0034: [Embedded Image Not Available] Microbiology: 01/29 0235 NASAL: MRSA Screen - RECD Radiology data Recent Impressions: MAGNETIC RESONANCE IMAGING - MRI BRAIN W/O CONTRAST 01/29 864 Report Impression - Status: SIGNED Entered: 01/29/2023 0724 IMPRESSION: 1. No acute intracranial abnormality. No acute ischemic infarct or mass lesion. Impression By: Gagan Alejandre MD Results: labs reviewed, vital signs reviewed, current med profile rev'd Diagnosis, Assessment Plan Free text A P: This is a 52 y/o female with no significant medical history presented to the ER with right sided facial droop. Patient is admitted to [facility] s/p TNK @ 1750 yesterday. ASSESSEMENT 1. Right sided facial droop Neuro #Right sided facial droop #S/p TNK on 01/28 Differential: Acute Valero's Palsy vs TIA CT head negative for acute intracranial bleed. CTA of head and neck negative for large vessel occlusion. MRI of brain negative for acute infarct. PT/OT cleared patient for d/c to home once medically cleared. No need for rehab. - ECHO with bubble study pending - On Lipitor 80mg daily -Will follow up with neurology to see if they want to treat as TIA with DAPT for 21 days vs steroids for acute valero's palsy or both? CV #Hyperlipidemia Lipid panel significant for LDL 152. -Started Lipitor 80 mg daily PULM -Patient on room air without respiratory distress. Diet: Regular DVT PX: Lovenox Code Status: Full Santa: No Lines: None Dispo: Downgraded Case discussed with Dr. You. Etienne You 01/30/23 1652: Attestations Teaching Physician Attestation F/U visit w/ resident: I saw the patient with the resident and . . . agree with the resident's findings and plan. 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 at this point MRI brain negative for stroke likely benefit from steroid course no need for DAPT per discussion with neurology discharge home at 1129 at 6634 RPT #:[id number] END OF REPORT [facility] 2023-01-29 22:37:00 [facility] ([facility]) Clinical Note REPORT#:[id number] REPORT STATUS: Signed REPORT INITIALIZATION DATE:01/29/23 TIME: 2236 PATIENT: AGUSTÍN LEIGH UNIT #: [id number] ROOM/BED: [address] : [birth year] AGE: 52 SEX: F ATTEND: Etienne You MD ADM AUTHOR: Minh Campuzano APRN REPT SERVICE DT/TIME: 01/29/232236 * ALL edits or amendments must be made on the electronic/computer document * Clinical Note Note: [address] not done earlier as MRI was done instead: negative for acute intracranial hemorrhage or infarct. No Stroke. Neurology already following. at 2238 RPT #:[id number] END OF REPORT [facility] 2023-01-29 15:39:00 [id number] [facility] [address] [place] [address] PATIENT NAME: AGUSTÍN LEIGH ADMIT DATE: 01/28/23 ACCOUNT NO: [id number] ROOM NO: [place] [address] AGE: 52 REPORT TYPE: eECHOCARDIOGRAM REPORT. SEX: F ADMITTING PHYSICIAN:Etienne You MD ATTENDING PHYSICIAN:Etienne You MD *[facility]* [address] [place] [address] Transthoracic Echocardiogram Patient: Agustín Leigh Study Date: 01/29/2023 BP: 161 / 100 URN: [id number] Location: : 1970 Age: 52 Gender: F Height: 66 in / 167.6 cm Weight: 164 lb / 74.4 kg BMI/BSA: 26.5 kg/m 2 / 1.88 m 2 *Ordering Physician: * Quintin Yao *Interpreting Physician: * Minh Ramires MD *Bottoming Room Supervisor: Cat Johnson Indications: Stroke. Study data: Transthoracic echocardiogram. Procedure: A transthoracic echocardiogram was performed. Images were obtained using a [employer] E95-1 cardiac ultrasound machine. Intravenous contrast (agitated saline) was administered. Complete 2D, complete spectral Doppler, and color Doppler. Patient status: Inpatient. Patient room number: ICC04. Study status: Routine. Heart rate: 71 bpm. Findings Left ventricle: The cavity size is normal. Wall thickness is normal. Systolic function is normal. The estimated ejection fraction is 60-64%. Wall motion is normal; there are no regional wall motion abnormalities. Left ventricular diastolic function parameters are normal. PATIENT NAME: AGUSTÍN LEIGH Right ventricle: The cavity size is normal. Systolic function is normal. Left atrium: The atrium is normal in size. Right atrium: The atrium is normal in size. Aorta: Aortic root: The root is normal-sized. Aortic valve: The valve is structurally normal. The valve is trileaflet. There is no evidence of stenosis. There is no regurgitation. Mitral valve: The valve is structurally normal. There is no evidence of stenosis. There is mild regurgitation. Tricuspid valve: The valve is structurally normal. There is trace regurgitation. Pulmonic valve: The valve is structurally normal. There is no regurgitation. Pericardium: There is no pericardial effusion. Pulmonary arteries: The main pulmonary artery is normal-sized. Systemic veins: Inferior vena cava: The IVC is normal-sized. Measurements Left ventricle Value Ref PURA, LAX 3.8 cm 3.8 - 5.2 ESD, LAX 2.7 cm 2.2 - 3.5 FS, LAX 29 % 27 - 45 IVS, ED 0.7 cm 0.6 - 0.9 IVS, ES 1.2 cm --------- PW, ED 0.8 cm 0.6 - 0.9 PW, ES 1.5 cm --------- IVS/PW, ED 0.93 --------- EF 56 % 54 - 74 LVOT Value Ref Diam, S 1.84 cm --------- Area 2.7 cm 2 --------- Peak sanjana, S 1.47 m/sec --------- Mean sanjana, S 1.02 m/sec --------- VTI, S 33.2 cm --------- Peak grad, S 9 mm Hg --------- Mean grad, S 5 mm Hg --------- SV 88 ml --------- SV/bsa 47 ml/m 2 --------- Right ventricle Value Ref PURA, LAX 3.2 cm --------- Pressure, S 36 mm Hg --------- Left atrium Value Ref AP dim, ES 3.2 cm 2.7 - 3.8 Vol/bsa, ES, 1-p A4C 26 ml/m 2 11 - 40 Vol/bsa, ES, A/L 28 ml/m 2 16 - 34 Aortic valve Value Ref Peak v, S 1.6 m/sec --------- Mean v, S 1.07 m/sec --------- PATIENT NAME: AGUSTÍN LEIGH VTI, S 32.6 cm --------- Mean grad, S 5 mm Hg --------- Peak grad, S 10.2 mm Hg --------- LVOT/AV, VTI ratio 1.02 --------- JAYLAN, VTI 2.70 cm 2 --------- LVOT/AV, Vpeak ratio 0.92 --------- JAYLAN, Vmax 2.44 cm 2 --------- Mitral valve Value Ref Peak E 1.24 m/sec --------- Peak A 1.06 m/sec --------- Decel time 203 ms --------- Peak grad, D 6.2 mm Hg --------- Peak E/A ratio 1.17 --------- Tricuspid valve Value Ref TR peak v 2.6 m/sec <=2.8 Peak RV-RA grad, S 28 mm Hg --------- Aortic root Value Ref Root diam 2.6 cm 2.6 - 4.0 Ascending aorta Value Ref AAo AP diam, S 2.7 cm --------- Pulmonary artery Value Ref Pressure, S 30.7 mm Hg --------- Systemic veins Value Ref Estimated CVP 8 mm Hg --------- Conclusions Summary: Normal biatrial size. Normal right ventricular size and systolic function. Normal left ventricular size and thickness. Normal systolic function with normal wall motion. Estimated EF 65-70%. No significant valvular abnormality. Normal diastolic function. Insufficient TR jet to estimate PA systolic pressure. There is no significant pericardial effusion. Agitated saline study is negative for intracardiac or intrapulmonary shunt. Electronically signed by Minh Ramires MD 01/29/2023 15:39 at 1539 PATIENT NAME: AGUSTÍN LEIGH [facility] 2023-01-29 08:36:00 [facility]) Critical Care Progress Note REPORT#:[id number] REPORT STATUS: Signed REPORT INITIALIZATION DATE:01/29/23 TIME: 08 PATIENT: AGUSTÍN LEIGH UNIT #: [id number] ROOM/BED: [address] : [birth year] AGE: 52 SEX: F ATTEND: Franko Wood MD ADM AUTHOR: Neftali Carbajal DO R1 REPT SERVICE DT/TIME: 01/29/23 08 * ALL edits or amendments must be made on the electronic/computer document * Neftali Carbajal 01/29/23 0836: Subjective Chief complaint: facial droop HPI: Patient assessed at bedside this morning. She still has residual right sided facial droop but is alert and oriented x3. Patient has no new complaints for this morning. Review of Systems Free Text ROS Notes Free Text ROS Notes: 10 point ROS negative unless mentioned in HPI. Objective General VS/I O Last Documented: Result Date Time Pulse Ox 97 01/29 08 B/P 125/72 01/29 0815 B/P Mean 93 01/29 0815 Pulse 78 01/29 0815 Resp 16 01/29 0815 Temp 37.2 01/29 0800 O2 Delivery Room air 01/29 0400 24 hour I O ending at 0700: 01/29 0700 01/28 1900 Intake Total Output Total 350 Balance -350 Number 1 Bowel Movements Number Voids 4 Output, Urine 350 Patient 76 kg 74.5 kg Weight Weight Bed scale Refused Measurement Method PATIENT WEIGHT: Weight (lb): 167 Weight (oz): 8.82 Weight (kg): 76.000 Medications: Active Meds + DC'd Last 24 Hrs Atorvastatin Calcium (LIPITOR) 80 MG DAILY PO (WDA) Mupirocin (BACTROBAN 2% 22 GM OINTMENT) 1 APPLIC BID NASAL Labetalol HCl (TRANDATE 4ML, GENERIC LABETALOL) 10 MG Q1H PRN PRN IV Sodium Chloride (SODIUM CHLORIDE FLUSH) 5 ML Q12HR IV (DC) Diphenhydramine HCl (BENADRYL INJ) 50 MG Q6H PRN PRN IV Famotidine (PEPCID) 20 MG Q12H IV Sodium Chloride (NACL 0.9%) 10 ML Methylprednisolone Sodium Succinate (Solu-MEDROL) 125 MG ONCE ONE IV (DC ) Nicardipine HCl (niCARdipine 40 mg/NS 200 mL) 200 ML TITRATE IV (CKD) Perflutren Lipid Microsphere (DEFINITY) DIRECTED ONCE PRN IV Sodium Chloride (NACL 0.9% 10ML SYRINGE) DIRECTED ONCE PRN IV Sodium Chloride (SODIUM CHLORIDE FLUSH) 5 ML ONCE PRN IV Sodium Chloride (SODIUM CHLORIDE FLUSH) 5 ML ASDIR PRN IV (DC) Sodium Chloride (NACL 0.9%) 10 ML ASDIR PRN IV (DC) Sodium Chloride (SODIUM CHLORIDE 0.9%) 250 ML ASDIR PRN IV (DC) Ondansetron HCl (ZOFRAN 4 MG/2 ML INJ) 4 MG Q4H PRN PRN IV (DC) Tenecteplase (TNKASE) 18.5 MG X1ED STA IV (DC) Iopamidol (ISOVUE-370 100ML) 100 ML .STK-MED ONE IV (DC) Nicardipine HCl (niCARdipine 40 mg/NS 200 mL) 200 ML .Q24H ONE IV (DC) Sodium Chloride (SODIUM CHLORIDE 0.9%) 1,000 ML .Q20H ONE IV Tenecteplase (TNKASE) SEE ADMIN CRITERIA FOR DOSE X1ED STA IV (CAN) Status post: TNK @ 1750 on 01/28 Physical Exam General appearance: alert, awake, oriented, no acute distress, conversational, mental status normal, no respiratory distress Head/eyes: atraumatic, normocephalic Cardiovascular: normal heart sounds, regular rate and rhythm, no murmur Respiratory: aerating well, clear to auscultation, no distress Abdomen: soft, non-tender, normal bowel sounds, no distention, no guarding, no mass/organomegaly, no rebound Genitourinary: no urinary catheter Extremities: moves all Musculoskeletal normal inspection Neuro/SHEET MANAGER: alert, oriented X 3, CNII-XII intact, normal speech, no motor deficits, no sensory deficits, Right sided facial droop with tongue deviation to the right. Decreased sensation on right side of face. Skin: intact, normal color, normal temperature, no rash Psychiatry: normal affect, normal judgment/insight, normal mood Results Findings/data: Laboratory Tests 01/29 01/29 01/29 01/28 01/28 0709 0244 0241 2208 1920 Chemistry Sodium (137 - 145 mmol/L) 140 Potassium (3.4 - 5.0 mmol/L) 3.5 Chloride (98 - 107 mmol/L) 111 H Carbon Dioxide (22 - 30 mmol/L) 20 L Anion Gap (10 - 20 mmol/L) 12 BUN (7 - 17 mg/dL) 12 Creatinine (0.5 - 1.0 mg/dL) 0.7 Glomerular Filtr Rate (mL/min) 103 Glucose (74 - 106 mg/dL) 148 H POC Glucose (74 - 106 MG/DL) 135 H 143 H 117 H Hemoglobin A1c (0 - 5.9 %) 5.5 Calcium (8.4 - 10.2 mg/dL) 8.4 Magnesium (1.6 - 2.3 mg/dL) 2.1 Specimen Hemolysis (0 - 100 Index/DL) 01/28 175 Chemistry Sodium (137 - 145 mmol/L) 141 Potassium (3.4 - 5.0 mmol/L) 3.7 Chloride (98 - 107 mmol/L) 107 Carbon Dioxide (22 - 30 mmol/L) 24 Anion Gap (10 - 20 mmol/L) 14 BUN (7 - 17 mg/dL) 14 Creatinine (0.5 - 1.0 mg/dL) 0.8 Glomerular Filtr Rate (mL/min) 88 Glucose (74 - 106 mg/dL) 100 Calcium (8.4 - 10.2 mg/dL) 9.1 Troponin I (0.012 - 0.033 ng/mL) < 0.012 L Triglycerides (mg/dL) 130 Cholesterol (mg/dL) 226 LDL Cholesterol Measurd (32 - 99 mg/dL) 152.48 H HDL Cholesterol (40 - 59 mg/dL) 49 Coronary Risk Interp 4.61 Specimen Hemolysis (0 - 100 Index/DL) < 15 Laboratory Tests 01/28 1750 Coagulation INR 1.0 PTT (Leslie) (23.4 - 37.0 SECONDS) 33.2 PT Patient/Control Mix (9.4 - 12.5 SECONDS) 11.0 Laboratory Tests 01/29 01/28 0241 1750 Hematology WBC (5.0 - 12.0 x10 3/uL) 7.0 7.4 RBC (4.20 - 5.40 x10 6/uL) 4.84 4.76 Hgb (12.0 - 16.0 g/dL) 13.8 13.7 Hct (36.0 - 46.0 %) 40.4 40.4 MCV (81 - 99 fL) 84 85 MCH (27 - 31 pg) 28.5 28.8 MCHC (33 - 37 g/dL) 34.2 33.9 RDW (11.5 - 15.5 %) 13.3 13.2 Plt Count (130 - 400 x10 3/uL) 282 265 MPV (9.4 - 16.4 fL) 10.4 10.0 Neut % (Auto) (43 - 65 %) 85.6 H 53.9 Lymph % (Auto) (20.5 - 45.5 %) 12.4 L 33.4 Blackford % (Auto) (5.5 - 11.7 %) 0.9 L 8.0 Eos % (Auto) (0.9 - 2.9 %) 0.0 L 3.4 H Baso % (Auto) (0.2 - 1.0 %) 0.4 0.9 Neut # (Auto) (2.2 - 4.8 x10 3/uL) 6.02 H 3.97 Lymph # (Auto) (1.3 - 2.9 x10 3/uL) 0.87 L 2.46 Blackford # (Auto) (0.3 - 0.8 x10 3/uL) 0.06 L 0.59 Eos # (Auto) (0.0 - 0.2 x10 3/uL) 0.00 0.25 H Baso # (Auto) (0.0 - 0.1 x10 3/uL) 0.03 0.07 Immature Gran % (0.0 - 2.0 %) 0.7 0.4 Nucleated RBC % (0 - 1.0 %) 0.0 0.0 Laboratory Tests 01/29/23 0241: [Embedded Image Not Available] 01/28/23 1750: [Embedded Image Not Available] Microbiology: 01/29 0235 NASAL: MRSA Screen - RECD Radiology data Recent Impressions: CAT SCAN - CT HEAD/BRAIN W/O CONT 01/28 174 Report Impression - Status: SIGNED Entered: 01/28/2023 180 IMPRESSION: 1. No CT evidence of acute intracranial abnormality. Impression By: Anurag Arndt MD CAT SCAN - CT ANGIO NECK 01/28 1750 Report Impression - Status: SIGNED Entered: 01/28/2023 182 IMPRESSION: 1. No intracranial large vessel occlusion. Impression By: Anurag Arndt MD CAT SCAN - CT ANGIO HEAD 01/28 1750 Report Impression - Status: SIGNED Entered: 01/28/2023 182 IMPRESSION: 1. No intracranial large vessel occlusion. Impression By: Anurag Arndt MD RADIOLOGY - XR CHEST 1 V 01/28 190 Report Impression - Status: SIGNED Entered: 01/28/2023 192 IMPRESSION: No acute radiographic abnormality. Impression By: Lizandro Gallardo MD Results: labs reviewed, vital signs reviewed, current med profile rev'd Diagnosis, Assessment Plan Free text A P: This is a 52 y/o female with no significant medical history presented to the ER with right sided facial droop. Patient is admitted to [facility] s/p TNK @ 1750 yesterday. ASSESSEMENT 1. Right sided facial droop Neuro #Right sided facial droop #S/p TNK Acute CVA vs Valero's Palsy vs complicated migraine Initial NIHSS of 2 CT head negative for acute intracranial bleed. CTA of head and neck negative for large vessel occlusion. A1C of 5.5% PT/OT cleared patient for d/c to home once medically cleared. No need for rehab. - MRI brain pending - ECHO with bubble study pending - Will repeat CT of head at 1750 on 01/29 - Lipitor 80mg daily - Neurology following (Dr. Townsend), recommend start DAPT 24 hours post-TNK - Keep SBP < 180, PRN BP meds as needed CV #Hyperlipidemia Lipid panel significant for LDL 152. -Started Lipitor 80 mg daily PULM -Patient on room air without respiratory distress. Diet: Regular DVT PX: Holding s/p TNK Code Status: Full Dispo: possible downgrade later today if CTH normal Case discussed with Dr. You. Etienne You 01/30/23 1706: Attestations Teaching Physician Attestation F/U visit w/ resident: I saw the patient with the resident and . . . agree with the resident's findings and plan. agree with the resident's findings and plan EXCEPT: F/U visit w/fellow: I saw the patient with the fellow and . . . agree with the fellow's findings and plan. 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 stroke work up repeat CT head at 24hr MRI brain Echo at 1341 at 1707 RPT #:[id number] END OF REPORT [facility] 2023-01-29 08:30:00 [facility] Neurology Consultation Note REPORT#:[id number] REPORT STATUS: Signed REPORT INITIALIZATION DATE:01/29/23 TIME: 829 PATIENT: AGUSTÍN LEIGH UNIT #: [id number] ROOM/BED: [address] : [birth year] AGE: 52 SEX: F ATTEND: Etienne You MD ADM AUTHOR: Gaurang Townsend DO REPT SERVICE DT/TIME: 01/29/23 0830 * ALL edits or amendments must be made on the electronic/computer document * History of Present Illness HPI Reason for consult: possible acute CVA HPI: 52 yo wf- she was at the diner with her daughter when she noticed it that she could not drink- there was some weakness to her lips; the right side of face felt numb. She went into the bathroom and noted that there was right facial droop. It appears that there was some tingling in her right arm and leg too. Daughter then called ambulance for her. CT head and cta head/ neck were negative. In Ed, she had tnk done. She feels that it is harder to close her right eye. She reports some tight sensation to right arm and right lower leg. Currently, she is waiting for brain mri. History - Adult longitudinal Additional medical history: allergies Additional surgical history: none new Smoking status for patients 13 years old or older: Former Smoker Date last smoked: 02/10/96 Medications: Home Medications: Medication Dose/Rte/Freq Days Qty Entered Last Max Daily Dose Reviewed Hydrocodone/Acetaminophen 1 TAB PO Q4HPRN 10/25/11 (HYDROcodone/APAP 1244 7.5/325) Strength: 7.5 MG-325 MG TAB CELECOXIB (CeleBREX) 10/25/11 Strength: 50 MG CAP 1245 MONTELUKAST (SINGULAIR) 10/25/11 Strength: 10 MG TAB 1251 Fexofenadine HCl (Mackenzie) 10/25/11 Strength: 30 MG TABLET 1302 [THERMAL SHOCK] 10/25/11 Strength: 1303 Current Hospital Medications: Antihistamine Drugs Sig/Marli Start time Last Medication Dose Route Stop Time Status Admin Diphenhydramine HCl 50 MG Q6H PRN PRN 01/28 1845 AC (BENADRYL INJ) IV 04/27 184 Blood Formation,Coagulation Sig/Marli Start time Last Medication Dose Route Stop Time Status Admin Tenecteplase 18.5 MG X1ED STA 01/28 1754 DC 01/28 (TNKASE) IV 01/28 175 1755 Tenecteplase See Dose X1ED STA 01/28 1743 CAN (TNKASE) Insts (1) IV 01/28 174 Cardiovascular Drugs Sig/Marli Start time Last Medication Dose Route Stop Time Status Admin Atorvastatin Calcium 80 MG DAILY 01/29 0900 WDA (LIPITOR) PO 04/28 0901 Labetalol HCl 10 MG Q1H PRN PRN 01/28 2215 AC (TRANDATE 4ML, IV 04/27 221 GENERIC LABETALOL) Nicardipine HCl 200 ML TITRATE 01/28 184 CKD (niCARdipine 40 mg/ IV 04/27 184 NS 200 mL) Nicardipine HCl 200 ML .Q24H ONE 01/28 1745 DC 01/28 (niCARdipine 40 mg/ IV 01/29 174 1833 NS 200 mL) Diagnostic Agents Sig/Marli Start time Last Medication Dose Route Stop Time Status Admin Iopamidol 100 ML .STK-MED ONE 01/28 1749 DC 01/28 (ISOVUE-370 100ML) IV 01/28 1750 1749 Electrolytic, Caloric, And Arianne Sig/Marli Start time Last Medication Dose Route Stop Time Status Admin Sodium Chloride 10 ML ASDIR PRN 01/28 1830 DC (NACL 0.9%) IV 01/29 0025 Sodium Chloride 250 ML ASDIR PRN 01/28 1830 DC (SODIUM CHLORIDE IV 01/29 0025 0.9%) Sodium Chloride 1,000 ML .Q20H ONE 01/28 1745 AC 01/28 (SODIUM CHLORIDE IV 01/29 1344 1832 0.9%) Gastrointestinal Drugs Sig/Marli Start time Last Medication Dose Route Stop Time Status Admin Famotidine 20 MG Q12H 01/28 1845 AC 01/29 (PEPCID) IV 01/29 184 0545 Sodium Chloride 10 ML (NACL 0.9%) Ondansetron HCl 4 MG Q4H PRN PRN 01/28 1826 DC (ZOFRAN 4 MG/2 ML IV 01/29 0025 INJ) Hormones And Synthetic Substit Sig/Marli Start time Last Medication Dose Route Stop Time Status Admin Methylprednisolone 125 MG ONCE ONE 01/28 1845 DC 01/28 Sodium Succinate IV 01/28 1846 1907 (Solu-MEDROL) Miscellaneous Therapeutic Agen Sig/Marli Start time Last Medication Dose Route Stop Time Status Admin Perflutren Lipid See Dose ONCE PRN 01/28 1845 AC Microsphere Insts (2) IV 01/29 1846 (DEFINITY) Skin And Mucous Membrane Agent Sig/Marli Start time Last Medication Dose Route Stop Time Status Admin Mupirocin 1 APPLIC BID 01/29 0900 AC (BACTROBAN 2% 22 GM NASAL 02/02 2101 OINTMENT) Other Sig/Marli Start time Last Medication Dose Route Stop Time Status Admin Sodium Chloride 5 ML Q12HR 01/28 2100 DC 01/28 (SODIUM CHLORIDE IV 01/295 6 FLUSH) Sodium Chloride See Dose ONCE PRN 01/28 1845 AC (NACL 0.9% 10ML Insts (3) IV 01/29 184 SYRINGE) Sodium Chloride 5 ML ONCE PRN 01/28 1845 AC (SODIUM CHLORIDE IV 01/29 184 FLUSH) Sodium Chloride 5 ML ASDIR PRN 01/28 183 DC (SODIUM CHLORIDE IV 01/29 0025 FLUSH) Dose Instructions: (1)Tenecteplase (TNKASE): SEE ADMIN CRITERIA FOR DOSE (2)Perflutren Lipid Microsphere (DEFINITY): DIRECTED (3)Sodium Chloride (NACL 0.9% 10ML SYRINGE): DIRECTED Allergies: Coded Allergies: tramadol (Intermediate, RASH-UNKNOWN 01/29/23) codeine (UPSET STOMACH 10/29/11) DRUG INGREDIENT Georges CODEINE Objective General VS: Last Documented: Result Date Time Pulse Ox 97 01/29 815 B/P 125/72 01/29 0815 B/P Mean 93 01/29 08 Pulse 78 01/29 08 Resp 16 01/29 08 Temp 99.0 01/29 0800 O2 Delivery Room air 01/29 0400 PATIENT WEIGHT: Weight (lb): 167 Weight (oz): 8.82 Weight (kg): 76.000 Medications Current Home Medications Hydrocodone/Acetaminophen (HYDROcodone/APAP 7.5/325) 1 TAB PO Q4HPRN CELECOXIB (CeleBREX) MONTELUKAST (SINGULAIR) Fexofenadine HCl (Mackenzie) [THERMAL SHOCK] Active Meds + DC'd Last 24 Hrs Atorvastatin Calcium (LIPITOR) 80 MG DAILY PO (WDA) Mupirocin (BACTROBAN 2% 22 GM OINTMENT) 1 APPLIC BID NASAL Labetalol HCl (TRANDATE 4ML, GENERIC LABETALOL) 10 MG Q1H PRN PRN IV Sodium Chloride (SODIUM CHLORIDE FLUSH) 5 ML Q12HR IV (DC) Diphenhydramine HCl (BENADRYL INJ) 50 MG Q6H PRN PRN IV Famotidine (PEPCID) 20 MG Q12H IV Sodium Chloride (NACL 0.9%) 10 ML Methylprednisolone Sodium Succinate (Solu-MEDROL) 125 MG ONCE ONE IV (DC ) Nicardipine HCl (niCARdipine 40 mg/NS 200 mL) 200 ML TITRATE IV (CKD) Perflutren Lipid Microsphere (DEFINITY) DIRECTED ONCE PRN IV Sodium Chloride (NACL 0.9% 10ML SYRINGE) DIRECTED ONCE PRN IV Sodium Chloride (SODIUM CHLORIDE FLUSH) 5 ML ONCE PRN IV Sodium Chloride (SODIUM CHLORIDE FLUSH) 5 ML ASDIR PRN IV (DC) Sodium Chloride (NACL 0.9%) 10 ML ASDIR PRN IV (DC) Sodium Chloride (SODIUM CHLORIDE 0.9%) 250 ML ASDIR PRN IV (DC) Ondansetron HCl (ZOFRAN 4 MG/2 ML INJ) 4 MG Q4H PRN PRN IV (DC) Tenecteplase (TNKASE) 18.5 MG X1ED STA IV (DC) Iopamidol (ISOVUE-370 100ML) 100 ML .STK-MED ONE IV (DC) Nicardipine HCl (niCARdipine 40 mg/NS 200 mL) 200 ML .Q24H ONE IV (DC) Sodium Chloride (SODIUM CHLORIDE 0.9%) 1,000 ML .Q20H ONE IV Tenecteplase (TNKASE) SEE ADMIN CRITERIA FOR DOSE X1ED STA IV (CAN) Physical Exam General appearance: alert, awake, oriented, no acute distress, pleasant, conversational, mental status normal, no respiratory distress Head/Eyes: atraumatic, clear cornea, normal conjunctiva/sclera, normocephalic ENT: moist mucosal membranes Neck: full range of motion, non-tender, supple/no meningismus, no masses or swelling Cardiovascular: regular rate and rhythm, normal heart sounds, no murmur Respiratory: aerating well, clear to auscultation, no distress Abdomen: non-tender, normal bowel sounds, soft, no distention Extremities: moves all, normal inspection Musculoskeletal: normal inspection Neuro/SHEET MANAGER: alert, oriented X 4, normal speech, EOMI, PERRL, no motor deficits, no sensory deficits, right facial droop; mild weakness to right eye closure Results Findings/Data: Laboratory Tests 01/29 01/29 01/29 01/28 01/28 0709 0244 0241 2209 1921 Chemistry Sodium (137 - 145 mmol/L) 140 Potassium (3.4 - 5.0 mmol/L) 3.5 Chloride (98 - 107 mmol/L) 111 H Carbon Dioxide (22 - 30 mmol/L) 20 L Anion Gap (10 - 20 mmol/L) 12 BUN (7 - 17 mg/dL) 12 Creatinine (0.5 - 1.0 mg/dL) 0.7 Glomerular Filtr Rate (mL/min) 103 Glucose (74 - 106 mg/dL) 148 H POC Glucose (74 - 106 MG/DL) 135 H 143 H 117 H Hemoglobin A1c (0 - 5.9 %) 5.5 Calcium (8.4 - 10.2 mg/dL) 8.4 Magnesium (1.6 - 2.3 mg/dL) 2.1 Specimen Hemolysis (0 - 100 Index/DL) 19 01/28 1750 Chemistry Sodium (137 - 145 mmol/L) 141 Potassium (3.4 - 5.0 mmol/L) 3.7 Chloride (98 - 107 mmol/L) 107 Carbon Dioxide (22 - 30 mmol/L) 24 Anion Gap (10 - 20 mmol/L) 14 BUN (7 - 17 mg/dL) 14 Creatinine (0.5 - 1.0 mg/dL) 0.8 Glomerular Filtr Rate (mL/min) 88 Glucose (74 - 106 mg/dL) 100 Calcium (8.4 - 10.2 mg/dL) 9.1 Troponin I (0.012 - 0.033 ng/mL) < 0.012 L Triglycerides (mg/dL) 130 Cholesterol (mg/dL) 226 LDL Cholesterol Measurd (32 - 99 mg/dL) 152.48 H HDL Cholesterol (40 - 59 mg/dL) 49 Coronary Risk Interp 4.61 Specimen Hemolysis (0 - 100 Index/DL) < 15 Laboratory Tests 01/28 175 Coagulation INR 1.0 PTT ([place]) (23.4 - 37.0 SECONDS) 33.2 PT Patient/Control Mix (9.4 - 12.5 SECONDS) 11.0 Laboratory Tests 01/29 01/28 0241 1750 Hematology WBC (5.0 - 12.0 x10 3/uL) 7.0 7.4 RBC (4.20 - 5.40 x10 6/uL) 4.84 4.76 Hgb (12.0 - 16.0 g/dL) 13.8 13.7 Hct (36.0 - 46.0 %) 40.4 40.4 MCV (81 - 99 fL) 84 85 MCH (27 - 31 pg) 28.5 28.8 MCHC (33 - 37 g/dL) 34.2 33.9 RDW (11.5 - 15.5 %) 13.3 13.2 Plt Count (130 - 400 x10 3/uL) 282 265 MPV (9.4 - 16.4 fL) 10.4 10.0 Neut % (Auto) (43 - 65 %) 85.6 H 53.9 Lymph % (Auto) (20.5 - 45.5 %) 12.4 L 33.4 Blackford % (Auto) (5.5 - 11.7 %) 0.9 L 8.0 Eos % (Auto) (0.9 - 2.9 %) 0.0 L 3.4 H Baso % (Auto) (0.2 - 1.0 %) 0.4 0.9 Neut # (Auto) (2.2 - 4.8 x10 3/uL) 6.02 H 3.97 Lymph # (Auto) (1.3 - 2.9 x10 3/uL) 0.87 L 2.46 Blackford # (Auto) (0.3 - 0.8 x10 3/uL) 0.06 L 0.59 Eos # (Auto) (0.0 - 0.2 x10 3/uL) 0.00 0.25 H Baso # (Auto) (0.0 - 0.1 x10 3/uL) 0.03 0.07 Immature Gran % (0.0 - 2.0 %) 0.7 0.4 Nucleated RBC % (0 - 1.0 %) 0.0 0.0 Radiology Data: Recent Impressions: CAT SCAN - CT HEAD/BRAIN W/O CONT 01/28 1742 Report Impression - Status: SIGNED Entered: 01/28/2023 180 IMPRESSION: 1. No CT evidence of acute intracranial abnormality. Impression By: Anurag Arndt MD CAT SCAN - CT ANGIO NECK 01/28 1750 Report Impression - Status: SIGNED Entered: 01/28/20231825 IMPRESSION: 1. No intracranial large vessel occlusion. Impression By: Anurag Arndt MD CAT SCAN - CT ANGIO HEAD 01/28 1750 Report Impression - Status: SIGNED Entered: 01/28/2023 182 IMPRESSION: 1. No intracranial large vessel occlusion. Impression By: Anurag Arndt MD RADIOLOGY - XR CHEST 1 V 01/28 190 Report Impression - Status: SIGNED Entered: 01/28/2023 1923 IMPRESSION: No acute radiographic abnormality. Impression By: Lizandro Gallardo MD Diagnosis, Assessment Plan Free Text DxA P Notes Free text DxA P notes: A 1. presumed acute CVA with right facial droop- s/p tnk. (paresthesia to right arm/ leg?) Neg brain ct and cta head/ neck. 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 etc. P -pending brain mri -statin -can do dapt 24 hrs after tnk -will follow at 0838 RPT #[id number] END OF REPORT [facility] 2023-01-28 18:30:00 [facility] ([facility] Critical Care H P REPORT#:[id number] REPORT STATUS: Signed REPORT INITIALIZATION DATE:01/28/23 TIME: 1829 PATIENT: AGUSTÍN LEIGH UNIT #: [id number] ROOM/BED: [address] : [address] AGE: 52 SEX: F ATTEND: Franko Wood MD ADM AUTHOR: Quintin Yao MD R3 REPT SERVICE DT/TIME: 01/28/231829 * ALL edits or amendments must be made on the electronic/computer document * Quintin Yao 01/28/231829: History of Present Illness HPI Chief complaint: facial droop HPI: 52-year-old female no past medical conditions presents to ED for acute onset right facial droop. Noted to have been at 1500. Has been given TNK at [address] head shows no acute bleeds. CTA shows no large vessel occlusion or significant stenosis. History Smoking status for patients 13 years old or older: Unknown,if ever smoked Objective Physical Exam VS/I O: Last Documented: Result Date Time Pulse Ox 100 01/28 1754 B/P 158/92 01/28 1754 B/P Mean 113.9 01/28 1754 Temp 97.7 01/28 1754 Pulse 68 01/28 1754 Resp 18 01/28 1754 O2 Delivery Room air 01/28 1733 Patient Weight and BMI Weight (kg): 74.5 BMI: 26.5 Neuro/SHEET MANAGER: alert, oriented X 3, facial droop, R sided facial droop, R arm and leg decreased sensation, strength intact Diagnosis, Assessment Plan Problem List/A P: 1. CVA (cerebral vascular accident) Free Text DxA P Notes Free Text DxA P Notes: facial droop 1500 post TNK Neuro - initial NIH 2 - initial CT and CTA (no stenosis LVO or bleeds) - post TNK given - facial droop noted - MRI brain pending - ECHO pending with bubble study - stroke workup - repeat CT at 1750 on 01/29 CV - BP goal <180 - cardene drip if needed - PRN BP meds Resp - on room air Endo - BMP pending ID afebrrile; wbc 7.4 Etienne You 01/31/23 2328: History Medication/Allergy-Vaccine Hx Allergies: Coded Allergies: tramadol (Intermediate, RASH-UNKNOWN 01/29/23) codeine (UPSET STOMACH 10/29/11) DRUG INGREDIENT Georges CODEINE Attestations Teaching Physician Attestation F/U visit w/ resident: I saw the patient with the resident and . . . agree with the resident's findings and plan. 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 [place] [address] PATIENT NAME: AGUSTÍN LEIGH ADMIT DATE: 01/28/23 ACCOUNT NO: [id number] ROOM NO: [place] [address] AGE: 52 REPORT TYPE: ELECTROCARDIOGRAM SEX: F ADMITTING PHYSICIAN:Franko Wood MD ATTENDING PHYSICIAN:Franko Wood MD Order: [id number] Test Reason : (Not Selected) Test Date/Time Stamp: FriJan 28 2023 18:19:02 Blood Pressure : / mmHG Vent. Rate : 063 BPM Atrial Rate : 063 BPM P-R Int : 166 ms QRS Dur : 078 ms QT Int : 440 ms P-R-T Axes : 049 041 066 degrees QTc Int : 450 ms Normal sinus rhythm Normal ECG No previous ECGs available Confirmed by MD MARY NATASHA ([id number]) on 01/30/2023 1:19:55 PM Referred By: Self Referred Confirmed by:JAZLYN MARY MD at 1319 PATIENT NAME: AGUSTÍN LEIGH [facility] 2023-01-28 17:43:00 [facility] ([facility]) EMERGENCY PROVIDER REPORT REPORT#:[id number] REPORT STATUS: Signed DATE:01/28/23 TIME: 1742 PATIENT: AGUSTÍN LEIGH UNIT #: [id number] ROOM/BED: [address] AGE: 52 SEX: F PCP PHYS: Alexandra Craig MD SERVICE AUTHOR: Contreras Dailey MD R3 * ALL edits or amendments must be made on the electronic/computer document * Contreras Dailey 01/28/231742: HPI-General Illness Free Text HPI Notes Free Text HPI Notes 52-year-old female denies past medical history presents with right facial droop. Patient was eating a meal when she suddenly noticed that she was having difficulty drinking and her daughter noticed that the patient was having right- sided facial droop. She is also having paresthesias on the right side of her face and arm and down into her leg. 2 weeks ago she was having left arm numbness which resolved on its own. 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 Performs both correctly 0 Horizontal EO movements None 0 Visual evans: No visual field loss 0 Facial palsy: Partial facial paralysis 2 Lt arm motor drift (10s) No drift 0 Rt motor arm drift (10s) No drift 0 Lt leg motor drift (5s) No drift 0 Rt leg motor drift (5s) No drift 0 Limb ataxia FNF/heel-thakkar (F-N/H-S) Absent 0 Sensation (arms/legs/face): No sensory loss 0 Language aphasia: No aphasia; normal 0 Dysarthria: Normal 0 Extinction/inattention: No abnormality 0 Total 2 NIH Stroke Score Completed: Time: 1745 Date: 01/28/23 Past Medical History - Adult Stated Complaint TIA, PARESTHESIA Smoking status for patients 13 years old or older: Unknown,if ever smoked Physical Exam Vital Signs Vital Signs First Documented: Result Date Time Pulse Ox 97 01/28 173 B/P 152/89 01/28 1733 B/P Mean 110 01/28 1733 O2 Delivery Room air 01/28 1733 Temp 98.0 01/28 1733 Pulse 67 01/28 173 Resp 14 01/28 1733 Last Documented: Result Date Time Pulse Ox 100 01/28 1838 B/P 143/85 01/28 1838 B/P Mean 108 01/28 1838 Pulse 68 01/28 1838 Resp 27 01/28 1838 Temp 97.7 01/28 1754 O2 Delivery Room air 01/28 1733 Review of Vital Signs Reviewed Free Text PE Notes Free Text PE Notes General: No acute distress, AAOx4 Head: normocephalic, atraumatic Neck: Supple, no meningismus, no nuchal rigidity Eyes: EOMI, PERLAA, no discharge, no scleral icterus, conjunctiva normal, no periorbital swelling Resp: No stridor, no respiratory distress, speaking in full sentences, equal excursion bilaterally. [LCTAB] CV: Regular rhythm. [Regular rate]. No MGR. Normal cap refill, normal pulses, no cyanosis Abd: Non-distended, non rigid, +BS, soft, [non-tender], no rebound or guarding. Skin: No bleeding, no lesions, intact. Color is at baseline Neuro: Right-sided facial droop does not spare the eyebrow. Sensation is subjectively decreased on the right. No drift in the bilateral upper or lower extremities. Psych: Calm, cooperative [Back: FROM, no deformity Ext: No deformity, FROM, strength 5/5 all extremities] Interpretation Diagnostics Lab Results Interpretation Results Laboratory Tests 01/28/231749: [Embedded Image Not Available] Laboratory Tests: 01/28 1750 Chemistry Sodium (137 - 145 mmol/L) 141 Potassium (3.4 - 5.0 mmol/L) 3.7 Chloride (98 - 107 mmol/L) 107 Carbon Dioxide (22 - 30 mmol/L) 24 Anion Gap (10 - 20 mmol/L) 14 BUN (7 - 17 mg/dL) 14 Creatinine (0.5 - 1.0 mg/dL) 0.8 Glomerular Filtr Rate (mL/min) 88 Glucose (74 - 106 mg/dL) 100 Calcium (8.4 - 10.2 mg/dL) 9.1 Troponin I (0.012 - 0.033 ng/mL) < 0.012 L Specimen Hemolysis (0 - 100 Index/DL) < 15 Coagulation INR 1.0 PTT ([place]) (23.4 - 37.0 SECONDS) 33.2 PT Patient/Control Mix (9.4 - 12.5 SECONDS) 11.0 Hematology WBC (5.0 - 12.0 x10 3/uL) 7.4 RBC (4.20 - 5.40 x10 6/uL) 4.76 Hgb (12.0 - 16.0 g/dL) 13.7 Hct (36.0 - 46.0 %) 40.4 MCV (81 - 99 fL) 85 MCH (27 - 31 pg) 28.8 MCHC (33 - 37 g/dL) 33.9 RDW (11.5 - 15.5 %) 13.2 Plt Count (130 - 400 x10 3/uL) 265 MPV (9.4 - 16.4 fL) 10.0 Neut % (Auto) (43 - 65 %) 53.9 Lymph % (Auto) (20.5 - 45.5 %) 33.4 Blackford % (Auto) (5.5 - 11.7 %) 8.0 Eos % (Auto) (0.9 - 2.9 %) 3.4 H Baso % (Auto) (0.2 - 1.0 %) 0.9 Neut # (Auto) (2.2 - 4.8 x10 3/uL) 3.97 Lymph # (Auto) (1.3 - 2.9 x10 3/uL) 2.46 [place]ford # (Auto) (0.3 - 0.8 x10 3/uL) 0.59 Eos # (Auto) (0.0 - 0.2 x10 3/uL) 0.25 H Baso # (Auto) (0.0 - 0.1 x10 3/uL) 0.07 Immature Gran % (0.0 - 2.0 %) 0.4 Nucleated RBC % (0 - 1.0 %) 0.0 Recent Impressions: CAT SCAN - CT HEAD/BRAIN W/O CONT 01/28 1742 Report Impression - Status: SIGNED Entered: 01/28/2023 180 IMPRESSION: 1. No CT evidence of acute intracranial abnormality. Impression By: Anurag Arndt MD CAT SCAN - CT ANGIO NECK 01/28 1750 Report Impression - Status: SIGNED Entered: 01/28/20231825 IMPRESSION: 1. No intracranial large vessel occlusion. Impression By: Anurag Arndt MD CAT SCAN - CT ANGIO HEAD 01/28 1750 Report Impression - Status: SIGNED Entered: 01/28/20231825 IMPRESSION: 1. No intracranial large vessel occlusion. Impression By: Anurag Arndt MD Lab Imaging Statement Laboratory radiographic studies reviewed and considered in the medical decision-making. Re-Evaluation MDM Free Text MDM Notes Free Text MDM Notes 1732 discussion at bedside with patient risks versus benefits of TNK. Patient leaning toward TNK but would like to discuss with her daughter first. Outside record review performed, paperwork showing patient presented to outside ER with the right-sided facial droop and a Noncon CT scan head was negative for intracranial hemorrhage. She has no significant medical history no contraindications to TNK Last known well 3 PM 1749 daughter arrived at bedside. They have agreed to the TNK. Risk benefits alternative discussed. They have consented to the TNK 1823 discussed the case with Dr. You critical care doctor who agrees with management and accepts admission Patient Discharge Departure Vital Signs/Condition Vital Signs First Documented: Result Date Time Pulse Ox 97 01/28 1733 B/P 152/89 01/28 1733 B/P Mean 110 01/28 1733 O2 Delivery Room air 12/19 1733 Temp 98.0 01/28 173 Pulse 67 01/28 173 Resp 14 01/28 1733 Last Documented: Result Date Time Pulse Ox 100 01/28 1838 B/P 143/85 01/28 1838 B/P Mean 108 01/28 1838 Pulse 68 01/28 1838 Resp 27 01/28 1838 Temp 97.7 01/28 175 O2 Delivery Room air 01/28 1733 All vital signs available at the time of this entry have been reviewed. Clinical Impression Clinical Impression Primary Impression: CVA (cerebral vascular accident) Disposition Decision Hospitalize Hosp Physician Name Etienne You MD [facility] Physician Nickel Plant Operator Request Time 1823 Request Date 01/28/23 )( Accepts Hospitalization Yes )( Reason for Hospitalization CVA s/p TNK )( Accepted Time 1823 )( Accepted Date 01/28/23 Call Information will see patient, agrees with eval, agrees with plan Sarahi Odonnell 01/28/23 1756: Past Medical History - Adult Allergies Coded Allergies: tramadol (Intermediate, RASH-UNKNOWN 01/29/23) codeine (UPSET STOMACH 10/29/11) DRUG INGREDIENT Georges CODEINE Home Medications Reported Medications MONTELUKAST (SINGULAIR) Fexofenadine HCl (Mackenzie) Re-Evaluation MDM Free Text MDM Notes Free Text MDM Notes 555pm dr pittman called with ct head: nad, tnk given ED Course Medication(s) Ordered Medication(s) Ordered: Blood Formation,Coagulation Sig/Marli Start time Last Medication Dose Route Stop Time Status Admin Tenecteplase 18.5 MG X1ED STA 01/28 1754 DC IV 01/28 1755 Tenecteplase See Dose X1ED STA 01/28 174 CAN Insts (1) IV 01/28 174 Cardiovascular Drugs Sig/Marli Start time Last Medication Dose Route Stop Time Status Admin Nicardipine HCl 200 ML .Q24H ONE 01/28 174 CKD IV 01/29 174 Diagnostic Agents Sig/Marli Start time Last Medication Dose Route Stop Time Status Admin Iopamidol 100 ML .STK-MED ONE 01/28 1749 DC 01/28 IV 01/28 175 1749 Electrolytic, Caloric, And Arianne Sig/Marli Start time Last Medication Dose Route Stop Time Status Admin Sodium Chloride 1,000 ML .Q20H ONE 01/28 1745 AC IV 01/29 1344 Dose Instructions: (1)Tenecteplase: SEE ADMIN CRITERIA FOR DOSE MDM-History/Test Information Independent Hx From/Why discussed with paramedics for additional hx and spoke to daughter with patients request to obtain consent. she is also agreeable to tnk after r/b/a discussion External Notes Reviewed neighbors [facility] chart reviewed: labs, and ct head wnl wo contraindications to tnk Patient Discharge Departure Discharge/Care Plan (Auto) Prescriptions Current Visit Scripts predniSONE 60 MG PO DAILY 7 Days #21 TABS UNTIL FINISHED (5 DAYS) valACYclovir (VALTREX) 1,000 MG PO Q8H 7 Days #21 TABS X7 DAYS POLYVINYL ALCOHOL (ARTIFICIAL TEARS 1.4% SOLN) 1 DROP EACH EYE ASDIR POLYVINYL ALCOHOL (ARTIFICIAL TEARS 1.4% SOLN) 1 DROP EACH EYE ASDIR #15 ML According to label instructions Critical Care Time Spent (minutes): 45 Services Performed Patient management by me, Time spent at bedside, Reviewing test results, Reviewing imaging, Discussing patient care, Documentation in record, Time with fam/surrogate Separately billable procedures excluded from time. CC Note 1 Total critical care time [] minutes. Total critical care time documented does not include time spent on separately billed procedures or the services of residents, students, nurses or physician assistants. I personally saw and examined the patient. I have reviewed all diagnostic interpretations and treatment plans as written. I was present for the garcia portions of any procedures performed and the inclusive time noted in any critical care statement. Critical care time includes patient management by me, time spent at the patients bedside, time to review lab and imaging results, discussing patient care, documentation in the medical record, and time spent with the family or caregiver. Supervising Physician Note Resident Saw Pt This patient was seen by a resident. I have personally seen the patient, performed the critical or garcia portions of the service, and participated in the management of the patient. I have reviewed and agree with the resident's note, and I have reviewed all labs, ECGs, and imaging studies or reports. I agree with this resident's findings, exam and plan. This is not clear cut bells given that there is no forehead invovlement and pt mentions dropping something with her hand due to neuro sxs. we discussed bells vs cva and neecd to treat based on high risk dx and opportunity for tx versus the risks. pt and susan both agreed that the benefits of tnk outweigh the risks. at 1825 at 1932 RPT #[id number] END OF REPORT [facility]
[2024-01-13] MEDS ORDERED: PROMETHAZINE INJ 25 MG/ML AMP ONE (05:03)
[2024-01-13] MEDS ORDERED: HYDROMORPHONE HCL 1 MG/ML INJ ONE (05:03)
[2024-01-13 05:28] LABS: Absolute Basophils 0.1 K/uL (0-0.5); Absolute Eosinophils 0.3 K/uL (0-0.5); Absolute Lymphocytes (CBC) 2.4 K/uL (0.7-4.9); Absolute Monocytes 0.5 K/uL (0.1-1.3); Absolute Neutrophil 2.9 K/uL (1.8-8.0); Basophils % 1.1 % (0-1.3); Eosinophils % 5.3 % (0-4.4); Hematocrit 42.1 % (36.0-45.0); Hemoglobin 14.3 g/dL (12.0-15.0); Lymphocytes % 38.4 % (15.3-44.8); MCH 28.8 pg (27.0-35.0); MCV 84.8 fL (80-100); MPV 8.3 fL (7.6-11.3); Monocytes % 8.3 % (3.3-12.3); Neutrophils % 46.9 % (41.7-73.7); Nucleated Red Blood Cells % 0.2 % (0-0); Platelets 316 thou/uL (152-406); RBC Red Blood Cell Count 4.97 M/uL (3.86-4.86); Red Cell Distribution Width 14.3 % (12.1-15.2)
[2024-01-13 05:38] LABS: ALT/SGPT 34 U/L (13-56); AST/SGOT 23 U/L (15-37); Albumin 3.7 g/dL (3.4-5.0); Alkaline Phosphatase 66 U/L (45-117); Anion Gap 11.7 mEq/L (5.0-15.0); BUN Blood Urea Nitrogen 22 mg/dL (7-18); Bicarbonate 25 mEq/L (21-32); Bilirubin Total 0.4 mg/dL (0.2-1.0); Globulin 3.8 g/dL (2.3-3.5); Glomerular Filtration Rate 73 ml/min (=/>90); Glucose Level 114 mg/dL (74-106); Magnesium 2.2 mg/dL (1.6-2.4); Potassium 3.7 mEq/L (3.5-5.1); Protein, Total 7.5 g/dL (6.4-8.2); Sodium Level 141 mEq/L (136-145)
[2024-01-13 05:48] LABS: Bilirubin Direct < 0.2 mg/dL (0-0.2); Bilirubin Indirect, Calculated 0.2 mg/dL (0.2-0.8)
--- NOTE | 2024-01-13 05:51 | EDPHYS ---
Physician Documentation [facility] Name: Shila Leigh Age: 53 yrs Sex: Female : 1970 Arrival Date: 01/13/2024 Time: 04:34 Bed 8 Private MD: ED Physician Chana Dyer HPI: 01/12 04:51 This 53 yrs old Female presents to ER via Unassigned with complaints of migraine, sp3 Nausea/Vomiting. 04:51 53-year-old female with a history of migraine headaches diagnosed at the [facility], sp3 prior Valero's palsy now presents to the ED with chief complaint of recurrent headache worse in nature, not thunderclap, nontraumatic with no visual changes presents to the ED for pain control. She denies any neck stiffness, chest pain, shortness of breath, abdominal pain, diarrhea or any other signs or symptoms on ROS at this time. She does endorse nausea and vomiting x 2 today. Nonbloody nonmucous on her emesis. She took 2 Excedrin prior to arrival which has helped somewhat.. 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 - Infectious Disease History:: Denies. - Social history:: Smoking status: Patient denies any tobacco usage or history of. ROS: 04:52 Constitutional: Negative for fever, chills, and weight loss, Eyes: Negative for injury, sp3 pain, redness, and discharge, Neck: Negative for injury, pain, and swelling, Cardiovascular: Negative for chest pain, palpitations, and edema, Respiratory: Negative for shortness of breath, cough, wheezing, and pleuritic chest pain, Back: Negative for injury and pain, : Negative for injury, bleeding, discharge, and swelling, MS/Extremity: Negative for injury and deformity, Skin: Negative for injury, rash, and discoloration, Psych: Negative for depression, anxiety, suicide ideation, homicidal ideation, and hallucinations, Allergy/Immunology: Negative for hives, rash, and allergies, Endocrine: Negative for neck swelling, polydipsia, polyuria, polyphagia, and marked weight changes, Hematologic/Lymphatic: Negative for swollen nodes, abnormal bleeding, and unusual bruising, 04:52 All other systems are negative, Exam: 04:53 Constitutional: This is a well developed, well nourished patient who is awake, alert, sp3 and in no acute distress. Head/Face: Normocephalic, atraumatic. Eyes: Pupils equal round and reactive to light, extra-ocular motions intact. Lids and lashes normal. Conjunctiva and sclera are non-icteric and not injected. Cornea within normal limits. Periorbital areas with no swelling, redness, or edema. ENT: Nares patent. No nasal discharge, no septal abnormalities noted. External auditory canals are clear. Oropharynx with no redness, swelling, or masses, exudates, or evidence of obstruction, uvula midline. Mucous membranes moist. Neck: Trachea midline, no thyromegaly or masses palpated, and no cervical lymphadenopathy. Supple, full range of motion without nuchal rigidity, or vertebral point tenderness. No Meningismus. Chest/axilla: Normal chest wall appearance and motion. Nontender with no deformity. No lesions are appreciated. Cardiovascular: Regular rate and rhythm with a normal S1 and S2. No gallops, murmurs, or rubs. Normal PMI, no JVD. No pulse deficits. Respiratory: Lungs have equal breath sounds bilaterally, clear to auscultation and percussion. No rales, rhonchi or wheezes noted. No increased work of breathing, no retractions or nasal flaring. Abdomen/GI: Soft, non-tender, with normal bowel sounds. No distension or tympany. No guarding or rebound. No evidence of tenderness throughout. Back: No spinal tenderness. No costovertebral tenderness. Full range of motion. Skin: Warm, dry with normal turgor. Normal color with no rashes, no lesions, and no evidence of cellulitis. MS/ Extremity: Pulses equal, no cyanosis. Neurovascular intact. Full, normal range of motion. Neuro: Awake and alert, GCS 15, oriented to person, place, time, and situation. Cranial nerves II-XII grossly intact. Motor strength 5/5 in all extremities. Sensory grossly intact. Cerebellar exam normal. Normal gait. Psych: Awake, alert, with orientation to person, place and time. Behavior, mood, and affect are within normal limits. Vital Signs: 04:57 BP 128 / 97; Pulse 74; Resp 14; Temp 98.1; Pulse Ox 100% ; Weight 72.57 kg; Height 5 vc1 ft. 3 in. ; Pain 10/10; 06:07 BP 148 / 85; Pulse 60; Resp 14; Pulse Ox 95% ; vc1 04:57 Body Mass Index 28.34 (72.57 kg, 160.02 cm) vc1 04:57 Pain Scale: Adult vc1 MDM: 04:43 Medical Screening Exam initiated sp3 04:53 Data reviewed: vital signs, nurses notes, lab test result(s), radiologic studies. ED sp3 course: 53-year-old female with headache. Differential diagnosis includes migraine headache, none specific headache, intracranial pathology including aneurysm or bleed, among others. I am not highly suspicious of ICH however she has a diagnosed history of migraine headaches. Will obtain CT scan of the head, general labs and treat with Dilaudid and Phenergan IV for symptomatic control. Patient has a ride coming to pick her up. Final disposition pending workup and patient course.. 05:50 ED course: Patient now rating headache at [address] scan negative on my read. sp3 Labs within normal limits. We will discharge patient home at this time.. 01/12 04:51 Order name: Basic Metabolic Panel; Complete Time: 05:49 sp3 01/12 04:51 Order name: CBC with Diff; Complete Time: 05:32 sp3 01/12 04:51 Order name: Hepatic Function; Complete Time: 05:49 sp3 01/12 04:51 Order name: Magnesium; Complete Time: 05:49 sp3 01/12 04:51 Order name: CT Head Brain wo Cont sp3 01/12 04:51 Order name: IV Saline Lock; Complete Time: 05:00 sp3 01/12 04:51 Order name: Labs collected and sent; Complete Time: 04:59 sp3 01/12 04:51 Order name: NPO; Complete Time: 04:59 sp3 01/12 04:51 Order name: O2 Sat Monitoring; Complete Time: 04:59 sp3 Administered Medications: 05:20 Drug: Promethazine IVP 12.5 mg IVP once Route: IVP; Site: right antecubital; vc1 05:47 Follow up: Response: No adverse reaction; Marked relief of symptoms; Nausea is decreasedvc1 05:24 Drug: HYDROmorphone IVP 1 mg IVP once Route: IVP; Site: right antecubital; vc1 05:47 Follow up: Response: No adverse reaction; Marked relief of symptoms; Pain is decreased vc1 Disposition Summary: 01/13/24 05:51 Discharge Ordered Notes: Location: Home sp3 Condition: Stable sp3 Diagnosis - Migraine headache sp3 Followup: sp3 - With: Private Physician - When: Upon discharge from the Emergency Department - Reason: Continuance of care Discharge Instructions: - Discharge Summary Sheet sp3 - Migraine Headache sp3 Forms: - Medication Reconciliation Form sp3 - Antibiotic Education sp3 - Prescription Opioid Use sp3 - Patient Portal Instructions sp3 - Leadership Thank You Letter sp3 - Work release form vc1 Prescriptions: - promethazine 25 mg Oral Tablet - take 1 tablet ORAL route every 6 hours As needed; 20 tablet; Refills: 0, sp3 Product Selection Permitted Signatures: Dispatcher [employer] EDMS Chana Dyer MD MD sp3 Catherine Morin RN RN vc1 Corrections: (The following items were deleted from the chart) 04:52 04:52 BASIC METABOLIC PANEL+C.LAB.BRZ ordered. EDMS EDMS 04:52 04:52 CBC+H.LAB.BRZ ordered. EDMS EDMS 04:52 04:52 HEPATIC FUNCTION+C.LAB.BRZ ordered. EDMS EDMS 04:52 04:52 MAGNESIUM+C.LAB.BRZ ordered. EDMS EDMS 04:52 04:52 Head Brain Wo Cont+CT.RAD.BRZ ordered. EDMS EDMS
--- NOTE | 2024-01-13 05:51 | ER ---
Nurse's Notes [facility] Name: Shila Leigh Age: 53 yrs Sex: Female : 1970 Arrival Date: 01/13/2024 Time: 04:34 Bed 8 Private MD: Diagnosis: Migraine headache Presentation: 01/12 04:57 Chief complaint: Patient states: woke up at 0325 with a horrible headache. It hurts so vc1 bad it is making me vomit. Coronavirus screen: Client denies travel out of the [place] in the last 14 days. At this time, the client does not indicate any symptoms associated with coronavirus-19. Ebola Screen: Patient negative for fever greater than or equal to 101.5 degrees Fahrenheit, and additional compatible Ebola Virus Disease symptoms Patient denies exposure to infectious person. Patient denies travel to an Ebola-affected area in the 21 days before illness onset. No symptoms or risks identified at this time. Initial Sepsis Screen: Does the patient meet any 2 criteria? No. Patient's initial sepsis screen is negative. Does the patient have a suspected source of infection? No. Patient's initial sepsis screen is negative. Risk Assessment: Do you want to hurt yourself or someone else? Patient reports no desire to harm self or others. Onset of symptoms was January 13, 2024 at 03:25. Care prior to arrival: Medication(s) given: Excedrin. 04:57 Method Of Arrival: Ambulatory vc1 04:57 Acuity: PADMINI 3 vc1 Triage Assessment: 05:00 General: Appears in no apparent distress. uncomfortable, well groomed, Behavior is vc1 calm, cooperative, appropriate for age. Pain: Complains of pain in left mandaeism and right mandaeism and forehead Pain does not radiate. Pain currently is 10 out of 10 on a pain scale. Quality of pain is described as pressure, squeezing, Pain began suddenly, Is continuous, Also complains of nausea. EENT: No deficits noted. No signs and/or symptoms were reported regarding the EENT system. Neuro: Level of Consciousness is awake, alert, obeys commands, Oriented to person, place, time, situation, Appropriate for age. Cardiovascular: Capillary refill < 3 seconds Patient's skin is warm and dry. Respiratory: Airway is patent Respiratory effort is even, unlabored, Respiratory pattern is regular, symmetrical. GI: Reports vomiting. : No deficits noted. No signs and/or symptoms were reported regarding the genitourinary system. Derm: Skin is intact, is healthy with good turgor, Skin is dry, Skin is normal, Skin temperature is warm. Musculoskeletal: Circulation, motion, and sensation intact. Range of motion: intact in all extremities. 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 - Infectious Disease History:: Denies. - Social history:: Smoking status: Patient denies any tobacco usage or history of. Screenin:48 [facility] ED Fall Risk Assessment (Adult) History of falling in the last 3 months, vc1 including since admission No falls in past 3 months (0 pts) Confusion or Disorientation No (0 pts) Intoxicated or Sedated No (0 pts) Impaired Gait No (0 pts) Mobility Assist Device Used No (0 pt) Altered Elimination No (0 pt) Score/Fall Risk Level 0 - 2 = Low Risk Oriented to surroundings, Maintained a safe environment, Educated pt \T\ family on fall prevention, incl call for assistance when getting out of bed. Abuse screen: Denies threats or abuse. Nutritional screening: No deficits noted. Tuberculosis screening: No symptoms or risk factors identified. Assessment: 05:47 Reassessment: Patient and/or family updated on plan of care and expected duration. Pain vc1 level reassessed. Patient is alert, oriented x 3, equal unlabored respirations, skin warm/dry/pink. Patient states feeling better. Patient states symptoms have improved. Pain: Complains of pain in forehead, right mandaeism and left mandaeism Pain does not radiate. Pain currently is 1 out of 10 on a pain scale. GI: Abdomen is round non-distended, Patient currently denies nausea. Vital Signs: 04:57 BP 128 / 97; Pulse 74; Resp 14; Temp 98.1; Pulse Ox 100% ; Weight 72.57 kg; Height 5 vc1 ft. 3 in. ; Pain 10/10; 06:07 BP 148 / 85; Pulse 60; Resp 14; Pulse Ox 95% ; vc1 04:57 Body Mass Index 28.34 (72.57 kg, 160.02 cm) vc1 04:57 Pain Scale: Adult vc1 ED Course: 04:40 Patient arrived in ED. gm2 04:42 Chana Dyer MD is Attending Physician. sp3 04:58 Triage completed. vc1 04:59 Arm band placed on right wrist. vc1 04:59 Inserted saline lock: 20 gauge in right antecubital area, using aseptic technique. vc1 Blood collected. Flushed with 10 mL NS. 05:00 Patient has correct armband on for positive identification. Bed in low position. Call vc1 light in reach. Pulse ox on. NIBP on. 05:00 Provided Education on: call light. vc1 05:14 CT Head Brain wo Cont In Process Unspecified. EDMS 06:06 No provider procedures requiring assistance completed. IV discontinued, intact, vc1 bleeding controlled, No redness/swelling at site. Pressure dressing applied. Administered Medications: 05:20 Drug: Promethazine IVP 12.5 mg IVP once Route: IVP; Site: right antecubital; vc1 05:47 Follow up: Response: No adverse reaction; Marked relief of symptoms; Nausea is decreasedvc1 05:24 Drug: HYDROmorphone IVP 1 mg IVP once Route: IVP; Site: right antecubital; vc1 05:47 Follow up: Response: No adverse reaction; Marked relief of symptoms; Pain is decreased vc1 Medication: 05:49 VIS not applicable for this client. vc1 Outcome: 05:51 Discharge ordered by . sp3 06:06 Discharged to home ambulatory, vc1 06:06 Condition: good 06:06 Discharge instructions given to patient, Instructed on discharge instructions, follow up and referral plans. medication usage, Demonstrated understanding of instructions, follow-up care, medications, Prescriptions given X 1, 06:10 Patient left the ED. vc1 Signatures: Dispatcher [employer] EDMS Chana Dyer MD MD sp3 Catherine Morin RN RN vc1 Melissa Echeverria 2
[2024-01-13 06:41] VITALS: TEMP 98.1
[2024-01-13 06:42] VITALS: BP 148/85; O2SAT 95
--- NOTE | 2024-01-13 06:45 | RAD REPORT ---
EXAMINATION: Head Brain Wo Cont CLINICAL HISTORY: HEADACHE COMPARISON: 01/15/2023 TECHNIQUE: Contiguous noncontrast axial images of the head were obtained. Sagittal and coronal reform atted images are generated for review. This exam was performed according to our departmental dose-optimization program, which includes automated exposure control, adjustment of the mA and/or kV according to patient size and/or use of iterative reconstruction technique. FINDINGS: BRAIN/VENTRICLES: There is no acute intracranial hemorrhage, mass effect or midline shift. No abnorma l extra-axial fluid collections. The mathias-white differentiation is maintained without evidence of acute infarct. There is no evidence of hydrocephalus. ORBITS: The visualized portions of the orbits demonstrate no acute abnormality. SINUSES: The visualized paranasal sinuses and mastoid air cells demonstrate no acute abnormality. SOFT TISSUE/SKULL: No acute abnormality of the visualized skull. The soft tissues are intact. IMPRESSION: No acute intracranial abnormality. RECOMMENDATIONS: Electronically signed by: Shahzad St MD 01/13/2024 06:35 AM [facility] Due to temporary technical issues with the PACS/PicRate.Me reporting system, reports are being dinh d by the in-house radiologist without review as a courtesy to ensure prompt reporting the interpreting radiologist is fully responsible for the content of the report. Transcribed Date/Time: 01/13/2024 6:45 AM
== END 2024-01-13 06:10 | disposition home or self-care (01) ==
LOC: ER 04:34
DX: G43.909 Migraine, unspecified, not intractable, without status migrainosus (principal)
CPT/HCPCS: 85025; 80048; 36415; 83735; 80076; 70450; J2550; J1171; 96374; 96375; 99284

== ENCOUNTER 2024-02-18 11:31 | Emergency (ER) | payer OTHER ==
--- NOTE | 2024-02-18 12:16 | ER ---
Nurse's Notes [facility] Name: Shila Leigh Age: 53 yrs Sex: Female : 1970 Arrival Date: 02/18/2024 Time: 11:31 Bed 7 Private MD: Diagnosis: Abdominal pain, patient departed due to no CT scan available Presentation: 02/17 11:47 Chief complaint: Patient states: about 1030 today I started to have pain in LLQ and tm6 suprapubic pain. No n/v/d. Feels like twisting pain. Week 3 of Mounjaro. Coronavirus screen: Client denies travel out of the [place] in the last 14 days. Ebola Screen: Patient negative for fever greater than or equal to 101.5 degrees Fahrenheit, and additional compatible Ebola Virus Disease symptoms Patient denies exposure to infectious person. Patient denies travel to an Ebola-affected area in the 21 days before illness onset. No symptoms or risks identified at this time. Initial Sepsis Screen: Does the patient meet any 2 criteria? No. Patient's initial sepsis screen is negative. Does the patient have a suspected source of infection? No. Patient's initial sepsis screen is negative. Risk Assessment: Do you want to hurt yourself or someone else? Patient reports no desire to harm self or others. Onset of symptoms was February 18, 2024. 11:47 Method Of Arrival: Ambulatory tm6 11:47 Acuity: PADMINI 3 tm6 Triage Assessment: 11:47 General: Appears uncomfortable, Behavior is cooperative. Pain: Complains of pain in tm6 suprapubic area and left lower quadrant Pain currently is 8 out of 10 on a pain scale. at worst was 10 out of 10 on a pain scale. Pain began 1 hour ago. EENT: No signs and/or symptoms were reported regarding the EENT system. Neuro: Level of Consciousness is awake, alert, obeys commands, Oriented to person, place, time, situation. Cardiovascular: Patient's skin is warm and dry. Respiratory: Airway is patent Respiratory effort is even, unlabored, Respiratory pattern is regular, symmetrical. GI: Abdomen is flat, non-distended, Reports lower abdominal pain. : No signs and/or symptoms were reported regarding the genitourinary system. Derm: No signs and/or symptoms reported regarding the dermatologic system. Musculoskeletal: No signs and/or symptoms reported regarding the musculoskeletal system. 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 - Infectious Disease History:: Denies. - Social history:: Smoking status: Patient/guardian denies using tobacco, the patient reports quitting approximately 30 years ago. Screenin:16 [facility] ED Fall Risk Assessment (Adult) History of falling in the last 3 months, ko1 including since admission No falls in past 3 months (0 pts) Confusion or Disorientation No (0 pts) Intoxicated or Sedated No (0 pts) Impaired Gait No (0 pts) Mobility Assist Device Used No (0 pt) Altered Elimination No (0 pt) Score/Fall Risk Level 0 - 2 = Low Risk Oriented to surroundings, Maintained a safe environment, Educated pt \T\ family on fall prevention, incl call for assistance when getting out of bed, Assessed \T\ reinforced patient's understanding of fall precautions, Hourly rounding (assess needs \T\ fall precautionary measures) done. Abuse screen: Denies threats or abuse. Denies injuries from another. Nutritional screening: No deficits noted. Tuberculosis screening: No symptoms or risk factors identified. Assessment: 12:16 General: Appears in no apparent distress. Behavior is calm, cooperative, appropriate ko1 for age. Pain: Complains of pain in left lower quadrant and suprapubic area. Neuro: No deficits noted. Cardiovascular: No deficits noted. Respiratory: No deficits noted. GI: Bowel sounds present X 4 quads. Abd is soft X 4 quads. : No deficits noted. No signs and/or symptoms were reported regarding the genitourinary system. EENT: No deficits noted. No signs and/or symptoms were reported regarding the EENT system. Derm: No deficits noted. No signs and/or symptoms reported regarding the dermatologic system. Musculoskeletal: No deficits noted. No signs and/or symptoms reported regarding the musculoskeletal system. Vital Signs: 11:46 BP 133 / 96; Pulse 72; Resp 18; Temp 98.5(O); Pulse Ox 99% on R/A; MAP 108 mmHg; Weight tm6 71.21 kg; Height 5 ft. 3 in. ; Pain 8/10; 12:16 BP 128 / 88; Pulse 70; Resp 15; Pulse Ox 98% ; ko1 11:46 Body Mass Index 27.81 (71.21 kg, 160.02 cm) tm6 11:46 Pain Scale: Adult tm6 ED Course: 11:34 Patient arrived in ED. sj2 11:36 Chana Dyer MD is Attending Physician. sp3 11:49 Triage completed. tm6 11:49 Arm band placed on right wrist. tm6 11:53 Johana Harris, RN is Primary Nurse. ko1 12:16 Patient has correct armband on for positive identification. Allergy band placed. Bed in ko1 low position. Call light in reach. Side rails up X 1. Provided Education on: call light. Pulse ox on. NIBP on. Door closed. Noise minimized. 12:16 No provider procedures requiring assistance completed. Patient did not have IV access ko1 during this emergency room visit. Administered Medications: No medications were administered Medication: 12:16 VIS not applicable for this client. ko1 Outcome: 12:15 Discharge ordered by . sp3 12:27 Discharged to home ambulatory, ko1 12:27 Condition: stable 12:27 Discharge instructions given to patient, Instructed on discharge instructions, follow up and referral plans. Demonstrated understanding of instructions, follow-up care, 12:27 Patient left the ED. ko1 Signatures: Chana Dyer MD MD sp3 Johana Harris, RN RN ko1 Jordy Campa RN RN tm6 Kassy Laura sj2 Corrections: (The following items were deleted from the chart) 11:50 11:47 Chief complaint: Patient states: about 1030 today I started to have pain in LLQ tm6 and suprapubic pain. No n/v/d. Feels like twisting pain. tm6
--- NOTE | 2024-02-18 12:16 | EDPHYS ---
Physician Documentation [facility] Name: Shila Leigh Age: 53 yrs Sex: Female : 1970 Arrival Date: 02/18/2024 Time: 11:31 Bed 7 Private MD: ED Physician Chana Dyer HPI: 02/17 12:13 This 53 yrs old Female presents to ER via Ambulatory with complaints of Abdominal Pain. sp3 12:13 53-year-old female with history of migraines presents with lower abdominal pain since sp3 yesterday cramping in nature particular on the left lower quadrant. She denies any fever, vomiting, diarrhea, back pain or symptoms. I informed her that she will likely need a CT scan and that both our CT scanners are offline at the moment. I offered her transfer to [place] or other [facility] for imaging, however she states that she will go to a different local facility for care. She was appreciative of our offer but will be leaving at this time. I have counseled her on risks of leaving including , permanent or temporary disability, loss of function, pain and suffering, among others. However patient is currently stable with normal vital signs and the risk of this is low. Patient understands that she may return at any time if she changes her mind about obtaining care through our possible pathways.. 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 - Infectious Disease History:: Denies. - Social history:: Smoking status: Patient/guardian denies using tobacco, the patient reports quitting approximately 30 years ago. Vital Signs: 11:46 BP 133 / 96; Pulse 72; Resp 18; Temp 98.5(O); Pulse Ox 99% on R/A; MAP 108 mmHg; Weight tm6 71.21 kg; Height 5 ft. 3 in. ; Pain 8/10; 12:16 BP 128 / 88; Pulse 70; Resp 15; Pulse Ox 98% ; ko1 11:46 Body Mass Index 27.81 (71.21 kg, 160.02 cm) tm6 11:46 Pain Scale: Adult tm6 MDM: 12:00 Medical Screening Exam initiated sp3 12:14 ED course: See HPI. sp3 Administered Medications: No medications were administered Disposition Summary: 02/18/24 12:15 Discharge Ordered Notes: Location: Home sp3 Condition: Undetermined sp3 Diagnosis - Abdominal pain, patient departed due to no CT scan available sp3 Followup: sp3 - With: Emergency Department - When: Immediately - Reason: Forms: - Medication Reconciliation Form sp3 - Antibiotic Education sp3 - Prescription Opioid Use sp3 - Patient Portal Instructions sp3 - Leadership Thank You Letter sp3 Signatures: Chana Dyer MD MD sp3 Jordy Campa RN RN tm6
[2024-02-18 12:35] VITALS: BP 128/88; TEMP 98.5; O2SAT 98
== END 2024-02-18 12:27 | disposition home or self-care (01) ==
LOC: ER 11:31
DX: R10.32 Left lower quadrant pain (principal)
CPT/HCPCS: 99283

== ENCOUNTER 2024-03-04 04:50 | Emergency (ER) | payer OTHER ==
[2024-03-04] MEDS ORDERED: methocarbamoL 750 MG TAB ONE (05:18)
[2024-03-04] MEDS ORDERED: ONDANSETRON 4 MG (ODT) TAB ONE (05:18)
[2024-03-04] MEDS ORDERED: KETOROLAC 10 MG TAB ONE (05:18)
[2024-03-04] MEDS ORDERED: HYDROCODONE/APAP 5/325 MG TAB ONE (05:19)
--- NOTE | 2024-03-04 06:39 | RAD REPORT ---
EXAM: CT Chest, Abdomen and Pelvis Without Intravenous Contrast CLINICAL HISTORY: The patient is 54 years old and is Female; right chest injury ;Chest pain TECHNIQUE: Axial computed tomography images of the chest, abdomen and pelvis without intravenous co ntrast. Sagittal and coronal reformatted images were created and reviewed. This CT exam was performed using one or more of the following dose reduction techniques: automated exposure control, adjustment of the mA and/or kV according to patient size, and/or use of iterative reconstruction technique. COMPARISON: No relevant prior studies available. FINDINGS: CHEST: Lungs: Unremarkable. No mass. No consolidation. Pleural space: Unremarkable. No significant effusion. No pneumothorax. Heart: Unremarkable. No cardiomegaly. No significant pericardial effusion. No significant c oronary artery calcifications. ABDOMEN: Liver: Unremarkable. Gallbladder and bile ducts: Unremarkable. No calcified stones. No ductal dilation. Pancreas: Unremarkable. No ductal dilation. Spleen: Unremarkable. No splenomegaly. Adrenals: Unremarkable. No mass. Kidneys and ureters: Unremarkable. No obstructing stones. No hydronephrosis. Stomach and bowel: Stool throughout the colon. No obstruction. No mucosal thickening. PELVIS: Appendix: No findings to suggest acute appendicitis. Bladder: Unremarkable. No stones. Reproductive: Unremarkable as visualized. CHEST, ABDOMEN and PELVIS: Intraperitoneal space: Unremarkable. No significant fluid collection. No free air. Bones/joints: Unremarkable. No acute fracture. No dislocation. Soft tissues: Unremarkable. Vasculature: Unremarkable. No aortic aneurysm. Lymph nodes: Unremarkable. No enlarged lymph nodes. IMPRESSION: No acute findings in the chest, abdomen or pelvis. Electronically signed by: Minh Read MD 03/04/2024 06:32 AM [facility] 8 Due to temporary technical issues with the [employer] reporting system, reports are being dinh d by the in-house radiologist without review as a courtesy to ensure prompt reporting the interpreting radiologist is fully responsible for the content of the report. Transcribed Date/Time: 03/04/2024 6:38 AM
--- NOTE | 2024-03-04 06:42 | ER ---
Nurse's Notes [facility] Name: Shila Leigh Age: 54 yrs Sex: Female : 1970 Arrival Date: 03/04/2024 Time: 04:50 Bed 5 Private MD: Diagnosis: Contusion of front wall of thorax;Acute right lower chest wall contusion Presentation: 03/04 05:18 Chief complaint: Patient states: leaned over gate to feed horse and felt a pop and pain vc1 is getting worse. Coronavirus screen: Client denies travel out of the [place] in the last 14 days. At this time, the client does not indicate any symptoms associated with coronavirus-19. Ebola Screen: Patient negative for fever greater than or equal to 101.5 degrees Fahrenheit, and additional compatible Ebola Virus Disease symptoms Patient denies exposure to infectious person. Patient denies travel to an Ebola-affected area in the 21 days before illness onset. No symptoms or risks identified at this time. Initial Sepsis Screen: Does the patient meet any 2 criteria? No. Patient's initial sepsis screen is negative. Does the patient have a suspected source of infection? No. Patient's initial sepsis screen is negative. Risk Assessment: Do you want to hurt yourself or someone else? Patient reports no desire to harm self or others. Onset of symptoms was March 03, 2024 at 13:00. 05:18 Method Of Arrival: Ambulatory vc1 05:18 Acuity: PADMINI 3 vc1 Triage Assessment: 05:21 General: Appears in no apparent distress. uncomfortable, well groomed, well developed, vc1 well nourished, Behavior is calm, cooperative, appropriate for age. Pain: Complains of pain in right upper quadrant Pain does not radiate. Pain currently is 9 out of 10 on a pain scale. Quality of pain is described as sharp. EENT: No deficits noted. No signs and/or symptoms were reported regarding the EENT system. Neuro: Level of Consciousness is awake, alert, obeys commands, Oriented to person, place, time, situation, Appropriate for age. Cardiovascular: Capillary refill < 3 seconds Patient's skin is warm and dry. Respiratory: Airway is patent Respiratory effort is even, shallow, Respiratory pattern is regular, symmetrical. GI: No deficits noted. No signs and/or symptoms were reported involving the gastrointestinal system. : No deficits noted. No signs and/or symptoms were reported regarding the genitourinary system. Derm: Skin is intact, is healthy with good turgor, Skin is dry, Skin is normal, Skin temperature is warm. Musculoskeletal: Circulation, motion, and sensation intact. Range of motion: intact in all extremities, Reports pain in right upper ribs. 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 - Infectious Disease History:: Denies. - Social history:: Smoking status: Patient/guardian denies using tobacco, the patient reports quitting approximately 28 years ago. - Family history:: not pertinent. Screenin:20 [facility] ED Fall Risk Assessment (Adult) History of falling in the last 3 months, vc1 including since admission No falls in past 3 months (0 pts) Confusion or Disorientation No (0 pts) Intoxicated or Sedated No (0 pts) Impaired Gait No (0 pts) Mobility Assist Device Used No (0 pt) Altered Elimination No (0 pt) Score/Fall Risk Level 0 - 2 = Low Risk Oriented to surroundings, Maintained a safe environment, Educated pt \T\ family on fall prevention, incl call for assistance when getting out of bed. Abuse screen: Denies threats or abuse. Nutritional screening: No deficits noted. Tuberculosis screening: No symptoms or risk factors identified. Assessment: 05:24 General: Appears in no apparent distress. uncomfortable, Behavior is calm, cooperative, cp4 appropriate for age. Pain: Complains of pain in abdomen and right upper quadrant Pain does not radiate. Pain currently is 10 out of 10 on a pain scale. Neuro: Level of Consciousness is awake, alert, obeys commands, Oriented to person, place, time, situation. Cardiovascular: Patient's skin is warm and dry. Respiratory: Airway is patent Respiratory effort is even, unlabored. GI: No signs and/or symptoms were reported involving the gastrointestinal system. : No signs and/or symptoms were reported regarding the genitourinary system. EENT: No signs and/or symptoms were reported regarding the EENT system. Derm: No signs and/or symptoms reported regarding the dermatologic system. Musculoskeletal: Reports pain in right upper quadrant. Vital Signs: 05:18 BP 147 / 91; Pulse 69; Resp 14; Temp 97.2; Pulse Ox 98% ; Weight 71.21 kg; Height 5 ft. vc1 3 in. ; Pain 9/10; 06:48 BP 138 / 84; Pulse 72; Resp 18; Pulse Ox 98% ; cp4 05:18 Body Mass Index 27.81 (71.21 kg, 160.02 cm) vc1 05:18 Pain Scale: Adult vc1 Preet Coma Score: 07:00 Eye Response: spontaneous(4). Motor Response: obeys commands(6). Verbal Response: sp4 oriented(5). Total: 15. ED Course: 04:56 Patient arrived in ED. gm2 05:06 Juancho Gaytan MD is Attending Physician. sp4 05:15 Dorene Gonzalez is Primary Nurse. cp4 05:19 Triage completed. vc1 05:20 Arm band placed on right wrist. vc1 05:21 Patient has correct armband on for positive identification. Bed in low position. Call vc1 light in reach. Provided Education on: CT, Call light. Pulse ox on. NIBP on. 05:24 No provider procedures requiring assistance completed. Patient did not have IV access cp4 during this emergency room visit. 05:44 CT Chest Abdomen Pelvis W/O Contrast In Process Unspecified. EDMS Administered Medications: 05:16 CANCELLED (Physician Discretion): ns 0.9% 1000 ml IV at 1 bolus Per protocol; to be cp4 given as a bolus over 60 minutes 05:21 Drug: Methocarbamol PO 1500 mg PO once Route: PO; cp4 06:50 Follow up: Response: No adverse reaction cp4 05:22 Drug: Ketorolac PO 10 mg PO once Route: PO; cp4 06:50 Follow up: Response: No adverse reaction cp4 05:22 Drug: HYDROcodone-acetaminophen PO 5 mg-325 mg 2 tabs PO once Route: PO; cp4 06:50 Follow up: Response: No adverse reaction; Pain is decreased cp4 05:22 Drug: Ondansetron PO 4 mg PO once Route: PO; cp4 06:50 Follow up: Response: No adverse reaction cp4 Medication: 05:21 VIS not applicable for this client. vc1 Outcome: 06:41 Discharge ordered by . sp4 06:48 Discharged to home ambulatory, cp4 06:48 Condition: stable 06:48 Discharge instructions given to patient, Instructed on discharge instructions, follow up and referral plans. medication usage, Demonstrated understanding of instructions, follow-up care, medications, Prescriptions given X 3, 06:49 Patient left the ED. cp4 Signatures: Dispatcher [employer] EDMS Catherine Morin RN RN vc1 Juancho Gaytan MD MD sp4 Dorene Gonzalez cp4 Melissa [facility]
--- NOTE | 2024-03-04 06:42 | EDPHYS ---
Physician Documentation [facility] Name: Shila Leigh Age: 54 yrs Sex: Female : 1970 Arrival Date: 03/04/2024 Time: 04:50 Bed 5 Private MD: ED Physician Juancho Gaytan HPI: 03/04 05:06 This 54 yrs old Female presents to ER via Unassigned with complaints of Flank sp4 Pain. 07:00 54-year-old female presents with acute compressive injury to the right lower chest sp4 wall. Patient states she was feeding her horse and leaned accidentally over the fence causing crackly noise and pain to the right lower chest wall. Pain has intensified at work yesterday.. 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 - Infectious Disease History:: Denies. - Social history:: Smoking status: Patient/guardian denies using tobacco, the patient reports quitting approximately 28 years ago. - Family history:: not pertinent. ROS: 07:00 Constitutional: Negative for fever, chills, and weight loss, positive right lower chest sp4 wall pain 07:00 All other systems are negative, Exam: 07:00 Constitutional: This is a well developed, well nourished patient who is awake, alert, sp4 and in no acute distress. Head/Face: Normocephalic, atraumatic. Eyes: Pupils equal round and reactive to light, extra-ocular motions intact. Lids and lashes normal. Conjunctiva and sclera are not injected. Cornea within normal limits. Periorbital areas with no swelling, redness, or edema. ENT: Nares patent. No nasal discharge, no septal abnormalities noted. Tympanic membranes are normal and external auditory canals are clear. Oropharynx with no redness, swelling, or masses, exudates, or evidence of obstruction, uvula midline. Mucous membranes moist. Neck: Trachea midline, no thyromegaly or masses palpated, and no cervical lymphadenopathy. Supple, full range of motion without nuchal rigidity, or vertebral point tenderness. Chest/axilla: Normal chest wall appearance and motion. Nontender with no deformity. No lesions are appreciated. Cardiovascular: Regular rate and rhythm with a normal S1 and S2. No gallops, murmurs, or rubs. Normal PMI, no JVD. No pulse deficits. Respiratory: Lungs have equal breath sounds bilaterally, clear to auscultation and percussion. No rales, rhonchi or wheezes noted. No increased work of breathing, no retractions or nasal flaring. Abdomen/GI: Soft, with normal bowel sounds. No distension or tympany. No guarding or rebound. No evidence of tenderness throughout. Back: No spinal tenderness. No costovertebral tenderness. Skin: Warm, dry with normal turgor. Normal color with no rashes, no lesions, and no evidence of cellulitis. MS/ Extremity: Pulses equal, no cyanosis. Neurovascular intact. Full, normal range of motion. Neuro: Awake and alert, GCS 15, oriented to person, place, time, and situation. Cranial nerves II-XII grossly intact. Motor strength 5/5 in all extremities. Sensory grossly intact. Psych: Awake, alert, with orientation to person, place and time. Behavior, mood, and affect are within normal limits Vital Signs: 05:18 BP 147 / 91; Pulse 69; Resp 14; Temp 97.2; Pulse Ox 98% ; Weight 71.21 kg; Height 5 ft. vc1 3 in. ; Pain 9/10; 06:48 BP 138 / 84; Pulse 72; Resp 18; Pulse Ox 98% ; cp4 05:18 Body Mass Index 27.81 (71.21 kg, 160.02 cm) vc1 05:18 Pain Scale: Adult vc1 Morris Coma Score: 07:00 Eye Response: spontaneous(4). Motor Response: obeys commands(6). Verbal Response: sp4 oriented(5). Total: 15. MDM: 05:09 Medical Screening Exam initiated sp4 06:37 ED course: COMPARISON: No relevant prior studies available. FINDINGS: CHEST: Lungs: sp4 Unremarkable. No mass. No consolidation. Pleural space: Unremarkable. No significant effusion. No pneumothorax. Heart: Unremarkable. No cardiomegaly. No significant pericardial effusion. No significant coronary artery calcifications. ABDOMEN: Liver: Unremarkable. Gallbladder and bile ducts: Unremarkable. No calcified stones. No ductal dilation. Pancreas: Unremarkable. No ductal dilation. Spleen: Unremarkable. No splenomegaly. Adrenals: Unremarkable. No mass. Kidneys and ureters: Unremarkable. No obstructing stones. No hydronephrosis. Stomach and bowel: Stool throughout the colon. No obstruction. No mucosal thickening. PELVIS: Appendix: No findings to suggest acute appendicitis. Bladder: Unremarkable. No stones. Reproductive: Unremarkable as visualized. CHEST, ABDOMEN and PELVIS: Intraperitoneal space: Unremarkable. No significant fluid collection. No free air. Bones/joints: Unremarkable. No acute fracture. No dislocation. Soft tissues: Unremarkable. Vasculature: Unremarkable. No aortic aneurysm. Lymph nodes: Unremarkable. No enlarged lymph nodes. IMPRESSION: No acute findings in the chest, abdomen or pelvis. . 07:02 Differential diagnosis: Chest wall contusion, chest wall compression, rib fracture. sp4 Data reviewed: vital signs, nurses notes, radiologic studies, CT scan. Consideration of Admission/Observation Escalation of care including admission/observation considered. ED course: Patient stable for discharge home with as needed pain medications and 2 days off work.. 03/04 05:15 Order name: CT Chest Abdomen Pelvis W/O Contrast sp4 Administered Medications: 05:16 CANCELLED (Physician Discretion): ns 0.9% 1000 ml IV at 1 bolus Per protocol; to be cp4 given as a bolus over 60 minutes 05:21 Drug: Methocarbamol PO 1500 mg PO once Route: PO; cp4 06:50 Follow up: Response: No adverse reaction cp4 05:22 Drug: Ketorolac PO 10 mg PO once Route: PO; cp4 06:50 Follow up: Response: No adverse reaction cp4 05:22 Drug: HYDROcodone-acetaminophen PO 5 mg-325 mg 2 tabs PO once Route: PO; cp4 06:50 Follow up: Response: No adverse reaction; Pain is decreased cp4 05:22 Drug: Ondansetron PO 4 mg PO once Route: PO; cp4 06:50 Follow up: Response: No adverse reaction cp4 Disposition Summary: 03/04/24 06:41 Discharge Ordered Notes: Location: Home sp4 Problem: new sp4 Symptoms: have improved sp4 Condition: Stable sp4 Diagnosis - Contusion of front wall of thorax sp4 - Acute right lower chest wall contusion sp4 Followup: sp4 - With: Private Physician - When: As needed - Reason: Discharge Instructions: - Discharge Summary Sheet sp4 - Chest Wall Pain, [id number] sp4 Forms: - Work release form sp4 - Patient Portal Instructions sp4 Prescriptions: - acetaminophen-codeine 300-60 mg Oral tablet - take 1 tablet ORAL route every 8 hours PRN pain; 20 tablet; Refills: 0, Product sp4 Selection Permitted - Ibuprofen 800 mg Oral Tablet - take 1 tablet ORAL route every 8 hours As needed take with food; 30 tablet; sp4 Refills: 0, Product Selection Permitted - methocarbamol 750 mg Oral tablet - take 2 tablets ORAL route every 8 hours for 10 days PRN muscle soreness; 60 sp4 tablet; Refills: 0, Product Selection Permitted Signatures: Dispatcher [employer] EDMS Catherine Morin RN RN vc1 Juancho Gaytan MD MD sp4 Dorene Gonzalez cp4 Corrections: (The following items were deleted from the chart) 05:12 05:12 CBC+H.LAB.BRZ ordered. EDMS EDMS 05:12 05:12 COMPREHENSIVE METABOLIC PANEL+C.LAB.BRZ ordered. EDMS EDMS 05:12 05:12 LIPASE+C.LAB.BRZ ordered. EDMS EDMS 05:12 05:12 Test, Urine+UC.LAB.BRZ ordered. EDMS EDMS 05:15 05:12 IV Saline Lock ordered. sp4 cp4 05:16 05:12 NS 0.9% IV 1000 ml IV at 1 bolus Per protocol; to be given as a bolus over 60 cp4 minutes ordered. sp4 05:16 05:12 Labs collected and sent ordered. sp4 cp4 05:44 05:12 Chest Abdomen Pelvis W Con+CT.RAD.BRZ ordered. EDMS EDMS
[2024-03-04 08:18] VITALS: TEMP 97.2; O2SAT 98
[2024-03-04 08:23] VITALS: BP 138/84
== END 2024-03-04 06:49 | disposition home or self-care (01) ==
LOC: ER 04:50
DX: S20.211A Contusion of right front wall of thorax, initial encounter (principal)
CPT/HCPCS: 71250; 74176; 99283; Q0162

== ENCOUNTER 2024-06-02 17:41 | Emergency (ER) | payer OTHER ==
--- OUTSIDE RECORDS SUMMARY | 2024-06-02 17:46 | XMS REPORT | Continuity of Care Document ---
Author Name Unknown Address [address] [facility] [address] [place] [address] [facility] Address [address] [facility] [address] [place] [address] Care Team Providers Care Licensing Coordinator Name Role Phone Alexandra Craig V Attending Clinician Un available All Macdonald Attending Clinicia n Unavailable Franko Wood Attending Clinician UnavailAlexandra Alvarado V Admitting Clinician Un available Franko Wood Admitting Clinician Pascual medrano Payers Payer Name Policy Type Policy Number Effective Date Expirati on Date Source [employer] HMO/CHOICE COMM [id number] 2017 00:00:00 Allergies, Adverse Reactions, Alerts Allergy Name Allergy Type Status Severity Reaction(s) Onset Date Inactive Date Treating Clinician Comments Source tramadol DA Active MO RASH-UNKNOWN 2022-02 00:00: 00 [facility] codeine DA Active U UPSET STOMACH 10-28 00:00: 00 [facility] Encounters Start Date/Time End Date/Time Encounter Type Admission Type Attending Clinicians Care Facility Care Department Encounter ID Source 2023-12-09 07:30:00 Inpatient EL Alexandra Maloney [facility] [id number] [facility] 2021-03-22 15:05:41 Outpatient Jason Macdonalddunia [facility] [id number] [facility] 2024-03-25 13:10:52 2024-03-25 17:56:23 Outpatient Elective [facility] [id number] [facility] 2024-03-25 13:10:32 2024-03-25 14:15:49 Outpatient Elective M[facility]OUT [facility] [id number] [facility] 2023-01-28 18:26:00 2023-01-30 14:04:00 Inpatient Franko Noe [facility] INTE [id number] [facility] 2022-08-05 12:00:00 2022-08-05 12:00:00 Outpatient Alexandra ConcepcionW CHUCK [id number] [facility] 2021-08-06 17:03:00 2021-08-06 17:03:00 Outpatient EL Alexandra Maloney [facility] [id number] [facility] 2021-03-23 11:00:00 2021-03-23 11:00:00 Inpatient FRANK[facility]onald[id number] [facility] 2021-03-22 13:34:00 2021-03-22 13:34:00 Outpatient FRANKI MacdonaldAll [facility] [id number] [facility] 2021-02-20 12:00:00 2021-02-20 12:00:00 Outpatient EL Ylmikea-Alexandra loveW CHUCK [id number] [facility] 2021-02-19 08:00:00 2021-02-19 23:00:00 Outpatient Alexandra ConcepcionW CPUL [id number] [facility] 2021-02-19 08:38:00 2021-02-19 08:38:00 Inpatient EL Alexandra Maloney [facility] [id number] [facility] Results Test Description Test Time Test Comments Results Result Co mments Source [id number] 12:39:00* Test Item Value Reference Range Interpretation Comme nts GLUBED (test code = GLUBED) 110 MG/DL 74-106 H [id number] 07:45:00* Test Item Value Reference Range Interpretation Comme nts GLUBED (test code = GLUBED) 97 MG/DL 74-106 N CBC W/AUTO [id number] 01:10:00* Test Item Value Reference Range Interpretation [...] = BA#) 0.06 x10 3/uL 0.0-0.1 N [id number] 00:48:00* Test Item Value Reference Range Interpretation Comme nts GLUBED (test code = GLUBED) 101 MG/DL 74-106 N [id number] 20:32:00* Test Item Value Reference Range Interpretation Comme nts GLUBED (test code = GLUBED) 123 MG/DL 74-106 H - MRI BRAIN W/O [id number] 18:46:00 [facility] 1970 Sex: F FAX: Sarahi Odonnell MD [phone] [place]: St: [facility] FAX: Quintin Yao MD FAX: Leobardo Maravilla [phone] Name: SHILA LEIGH [facility] : 1970 Age/S: 52/F [address] Unit #: [id number] Loc: C.ICC0 [place] [address] Phys: Quintin Yao MD R3 Acct: [id number] Dis Date: Status: ADM IN PHONE #: [phone] Exam Date: 01/29/2023 1800 FAX #: [phone] Reason: stroke, facial droop R side EXAMS: CPT CODE: [id number] MRI BRAIN W/O CONTRAST 42472 EXAM: MRI of the Brain without contrast Location: A1 HISTORY: stroke, facial droop R side COMPARISON: Correlation with CT from 01/28/2023 TECHNIQUE: Sagittal T1, axial T1, T2, FLAIR, T2 gradient, diffusion with ADC mapping and coronal T2 weighted images of the brain and brainstem were obtained without contrast. FINDINGS: No diffusion abnormalities are identified to suggest acute ischemic infarction. No signal abnormalities areidentified on T2 GRE images to suggest acute or chronic hemorrhagic products. The brain parenchymalvolume and ventricular caliber are within normal limits. [...] vasculature and dural venous sinuses. The paranasal sin uses, mastoid air cells and orbits are within normal limits IMPRESSION: 1. No acute intracranial abnormality. No acute ischemic infarct or mass lesion. at 1846 Reported and signed by: Gagan Orona MD CC: Sarahi Odonnell MD; Quintin Yao MD; Alexandra Craig MD Technologist: Casey Allred Trnncrd Date/Time/By: 01/29/2023 (184): By: [email or web address] PAGE 1 Signed Report FAX: Sarahi Odonnell MD [phone] [place]: St: ADM FAX: Quintin Yao MD R FAX: Leobardo Watts [phone] Name: SHILA LEIGH [facility] : 1970 Age/S:52/F [address] Unit #: [id number] Loc: .[address] [place] [address] Phys: Quintin Yao MD R3 Acct: [id number] Dis Date: Status: ADM IN PHONE #: [phone] Exam Date: 01/29/2023 1800 FAX #: [phone] Reason: stroke, facial droop R side EXAMS: CPT CODE: [id number] MRI BRAIN W/O CONTRAST 61394 (Continued) Orig Print D/T: S: 01/29/2023 (2153) PAGE 2 Signed [id number] 12:57:00* Test Item Value Reference Range Interpretation Comme nts GLUBED (test code = GLUBED) 132 MG/DL 74-106 H [id number] 07:56:00* Test Item Value Reference Range Interpretation Comme nts GLUBED (test code = GLUBED) 135 MG/DL 74-106 H [id number] 06:10:00* Test Item Value Reference Range Interpretation Comme nts GLUBED (test code = GLUBED) 143 MG/DL 74-106 H BASIC METABOLIC [id number] 04:06:00* Test Item Value Reference Range Interpretation [...] code = HEMINDEX) 19 Index/DL 0-100 N [id number] 04:06:00* Test Item Value Reference Range Interpretation Comme nts MAGNESIUM (test code = MAG) 2.1 mg/dL 1.6-2.3 N CBC W/AUTO [id number] 03:12:00* Test Item Value Reference Range Interpretation [...] = BA#) 0.03 x10 3/uL 0.0-0.1 N [id number] 22:25:00* Test Item Value Reference Range Interpretation [...] Borderline Risk LDL Cholesterol<100mg/ dL: Desirable LDL-C xuhnknjbyjdhs174-849 mg/dL: Borderline High Risk LDL-C tnuskfofdobpm888-133 mg/dL: High risk LDL-C concentration HDL-LDL Cholesterol is affected by a number of factors suchas smoking, age and sex.~~~~~~~~~~~~~~~~ ~~~~~~~~~~~~~~~~~~~~ ~~~~~~~~~~~~~~~~~~~~ ~~~~ HGBA1C - GLYCOSYLATED [id number] 20:27:00* Test Item Value Reference Range Interpretation [...] these hemoglobin variants. - XR CHEST 1 [id number] 19:20:00 [facility] : 1970 Sex: F FAX: Sarahi Odonnell MD [phone] [place]: St: ADM FAX: Contreras Dailey MD FAX: Y RandatwinjordinLeobardo [phone] Name: SHILA LEIGH [facility] : 1970 Age/S: 52/F [address] Unit #: [id number] Loc: [place] [address] Phys: Contreras Dailey MD R3 Acct: [id number] Dis Date: Status:ADM IN PHONE #: [phone] Exam Date: 01/28/2023 1905 FAX #: [phone] Reason: code stroke EXAMS: CPT CODE: [id number] XR CHEST 1 V 99323 EXAMINATION: - XR CHEST 1 V INDICATION: code stroke COMPARISON: 08/06/2021 LOCATION: H96 FINDINGS: Clear lungs. No visible pleural fluid or pneumothorax. Normal cardiac silhouette. IMPRESSION: No acute radiographic abnormality. at 1920 Reported and signed by: Lizandro Sifuentes MD CC: Sarahi Odonnell MD; Contreras Dailey MD; Alexandra Craig MD Technologist: EDMAR REYEZ; BRAN CAST Trnscrd Date/Time/By: 01/28/2023 (1919) : By: [email or web address] PAGE 1 Signed Report FAX: Sarahi Odonnell MD [phone] [place]: St: [facility] FAX: Contreras Dailey MD FAX: Leobardo Maravilla [phone] Name: SHILA LEIGH [facility] : 1970 Age/S: 52/F [address] Unit #: [id number] Loc: [place] [address] Phys: Contreras Dailey MD R3 Acct: [id number] Dis Date: Status: ADM IN PHONE #: [phone] Exam Date: 01/28/20231904 FAX #: [phone] Reason: code stroke EXAMS: CPT CODE: [id number] XR CHEST 1 V 57949 (Continued) Orig Print D/T: S: 01/28/2023 (1922) PAGE 2 Signed ReportBASIC METABOLIC [id number] 18:54:00* Test Item Value Reference Range Interpretation [...] calculation forGFR is based on the CKD-EPI (202) calculation. This formulais race indifferent and is the recommended formula for GFRby the National Kidney Foundation for Adults.The GFR will not calculate if the sex is unknown or if thepatient's age is <18 years. CREATININE (test code = CREAT) 0.8 mg/dL 0.5-1.0 N CALCIUM (test code = CA) 9.1 mg/dL 8.4-10.2 N INDEX HEMOLYSIS (test code = HEMINDEX) < 15 Index/DL 0-100 N [id number] 18:54:00* Test Item Value Reference Range Interpretation [...] BIOTIN SUPPLEMENTS~~~~~~~~~~~~~~~~ ~~~~~~~~~~~~~~~~~~~~~~~~~~~ ~~~~~~~~~~~~~~~~ - CT ANGIO [id number] 18:22:00 [facility] : 1970 Sex: F FAX: Sarahi Odonnell MD [phone] [place]: St: PRE FAX: Contreras Dailey MD FAX: Leobardo Maravilla [phone] Name: SHILA LEIGH [facility] : 1970 Age/S: 52/F [address] Unit: [id number] Loc: [place] [address] Phys: Contreras Dailey MD R3 Acct: [id number] Dis Date: Status: PREER PHONE #: [phone] Exam Date: 01/28/20231757 FAX #: [phone] Reason: right facial droop EXAMS: CPT CODE: [id number] CT ANGIO HEAD 40001 EXAM: - CT ANGIO NECK, - CT [...] arch to the skull base after intravenous contrastutilizing CTA protocol. Coronal and sagittal maximum intensity projection images are provided. Thisexam was performed according to our departmental dose-optimization program, which includes automated exposure control, adjustment of the mA and/or kV according to patient size and/or use of iterativereconstruction technique FINDINGS: For the purposes of this dictation, hemodynamically significant stenosis is characterized as greater than 50%. CTA head: The petrous, cavernous, and clinoid internal carotid arteries do not demonstrate hemodynamically significant stenoses. The anterior and middle cerebral arteries do not demonstrate hemodynamically significant stenoses. [place] of both vertebral arteries into the basilar. Basilar artery and posterior cerebral arteries are do not demonstrate hemodynamically significant stenoses. The dural venous sinuses are patent. CTA neck: PAGE 1 SignedReport (CONTINUED) FAX: Sarahi Odonnell MD [phone] [place]: St: PRE FAX: Contreras Dailey MD FAX: Leobardo Maravilla [phone] Name: RAMILASHILANATA TAYLOREE [facility] : 1970 Age/S: 52/F [address] Unit: [id number] Loc: [place] [address] Phys: Contreras Dailey MD R3 Acct: [id number] Dis Date: Status: PRE ER PHONE #: [phone] Exam Date: 01/28/2023 1758 FAX #: [phone] Reason: right facial droop EXAMS: CPT CODE: [id number] CT ANGIO HEAD 99279 (Continued) The origins of the great vessels [...] ... Trnscrd Dt/Tm: 01/28/2023 (1821) t.STASR.HV2 Orig PrintD/T: S: 01/28/2023 (1825 PAGE 2 Signed Report- CT ANGIO [id number] 18:22:00 [facility] : 1970 Sex: F FAX: Sarahi Odonnell MD [phone] [place]: St: PRE FAX: Contreras Dailey MD FAX: Leobardo Maravilla [phone] Name: SHILA LEIGH [facility] : 1970 Age/S: 52/F [address] Unit: [id number] Loc: [place] [address] Phys: Contreras Dailey MD R3 Acct: [id number] Dis Date: Status: PRE ER PHONE #: [phone] Exam Date: 01/28/20231757 FAX #: [phone] Reason: right facial droopEXAMS: CPT CODE: [id number] CT ANGIO NECK 51425 EXAM: - CT ANGIO NECK, - CT ANGIO HEAD LOCATION: [id number]: right facial droop COMPARISON: None available at [...] For the purposes of this dictation, hemodynamically significantstenosis is characterized as greater than 50%. CTA head: The petrous, cavernous, and clinoid internal carotid arteries do not demonstrate hemodynamically significant stenoses. The anterior and middle cerebral arteries do not demonstrate hemodynamically significant stenoses. [place] of both vertebral arteries into the basilar. Basilar artery and posterior cerebral arteries are do not demonstrate hemodynamically significant stenoses. The dural venous sinuses are patent. CTA neck: PAGE 1 Signed Report (CONTINUED) FAX: Sarahi Odonnell MD [phone] [place]: St: PRE FAX: Contreras Dailey MD FAX: Angela CraigBetorae [phone] Name: SHILA LEIGH [facility] : 1970 Age/S: 52/F [address] Unit: [id number] Loc: [place] [address] Phys: Contreras Dailey MD R3 Acct: [id number] DisDate: Status: PRE ER PHONE #: [phone] Exam Date: 01/28/20231757 FAX #: [phone] Reason: right facial droop EXAMS: CPT CODE: [id number] CT ANGIO NECK 87001 (Continued) The origins of the great vessels from the aortic arch do not demonstrate hemodynamically significant stenoses. The bilateral common carotid arteries and bulbs are without hemodynamically significant stenosis. The internalcarotid arteries do not demonstrate hemodynamically significant stenosis. The vertebral arteries are codominant. No incidental soft tissue findings. IMPRESSION: 1. No intracranial large vessel occlusion. at 1822 Reported and signed by: Anurag Pittman MD CC: Sarahi Odonnell MD; Contreras Dailey MD; Alexandra Craig MD Technologist:NIKHIL REYNOSO, RT(R,CT); THERON MARCOS; ... Trnscrd Dt/Tm: 01/28/2023 (1821) tRONAR.HV2 Orig Print D/T: S: 01/28/2023 (6 PAGE 2 Signed ReportPROTHROMBIN [id number] 18:06:00* Test Item Value Reference Range Interpretation Comme nts PROTHROMBIN TIME PATIENT (test code = PTP) 11.0 SECONDS 9.4-12.5 N INTERNATIONAL NORMAL RATIO (test code = INR) 1.0 CALLED RESULTS T O [id number] 01/28/23 AT 1804 BY [id number].The INR is to be used only for [...] Food and Drug Administrationrecommen dations. THROMBOPLASTIN TIME [id number] 18:06:00* Test Item Value Reference Range Interpretation Comme nts THROMBOPLASTIN TIME PARTIAL (test code = PTT) 33.2 SECONDS 23.4-37.0 N Therapeutic Rang e for Heparin EFFECTIVE 08/19/12 Heparin IU/mL aPTT Seconds0.3 64.30.7 88.8 CBC W/AUTO [id number] 18:01:00* Test Item Value Reference Range Interpretation [...] 3/uL 0.0-0.1 N - CT HEAD/BRAIN W/O [id number] 17:58:00 [facility] [place] : 1970 Sex: F FAX: Sarahi Odonnell MD [phone] [place]: St: PRE FAX: Contreras Dailey MD FAX: Leobardo Maravilla [phone] Name: SHILA LEIGH [facility] : 1970 Age/S: 52/F [address] Unit: [id number]: [place] [address] Phys: Contreras Dailey MD R3 Acct: [id number] Dis Date: Status: PREER PHONE #: [phone] Exam Date: 01/28/2023 1746 FAX #: [phone] Reason: right facial droop EXAMS: CPT CODE: [id number] CT HEAD/BRAIN W/O CONT 72183 EXAM: - CT HEAD/BRAIN W/O CONT LOCATION: H47 HISTORY: right facial droop COMPARISON: None available at the time of interpretation. TECHNIQUE: Computerized tomography images from the skull base to the vertex were obtained. Coronal and sagittal reformatted images are provided. This exam was performed according to our departmental dose-optimization program, which includes automated exposure control, adjustment of the mA and/or kV according topatient size and/or use of iterative reconstruction technique FINDINGS: Brain: The brain parenchymal architecture is unremarkable. The brain parenchyma is age appropriate. There is no evidence of an acute territorial infarct. There is no midline shift. Hemorrhage: There is no CT evidence of acute intracranial hemorrhage. Ventricles: There is no evidence of hydrocephalus. Bones: There is no evidence of acute displaced calvarial fracture. Sinuses: The visualized portions of the paranasal sinusesand mastoid air cells are free of significant opacification. Other/Soft Tissues: Unremarkable. Findings were communicated to Dr. Odonnell by telephone on 01/28/2023 5:58 PM. IMPRESSION: 1. No CT evidence of acute intracranial abnormality. PAGE 1 Signed Report (CONTINUED) FAX: Sarahi Odonnell MD [phone] [place]: St: PRE FAX: Contreras Dailey MD FAX: Leobardo Maravilla [phone] Name: SHILA LEIGH [facility] : 1970 Age/S: 52/F [address] Unit: [id number] Loc: [place] [address] Phys: Contreras Dailey MD R3 Acct: [id number] Dis Date: Status: PRE ER PHONE #: [phone] Exam Date: 01/28/2023 1746 FAX #: [phone] Reason: right facial droop EXAMS: CPT CODE: [id number] CT HEAD/BRAIN W/O CONT 26529 (Continued) at 9187 Reported and signed by: Anurag Pittman MD CC: Sarahi Odonnell MD; Contreras Dailey MD; Alexandra Craig MD Technologist: NIKHIL REYNOSO, RT(R,CT); THERON MARCOS; ... Trnscrd Dt/Tm: 1 03/31/2022 (7840) t.STASR.HV2 Orig Print D/T: S: 01/28/2023 (1805 PAGE 2 Signed Report- XR CHEST 2 [id number] 17:40:00 [facility] : 1970 Sex: F FAX: Y Leobardo Pedroza [phone] [place]: St: REG Name: SHILA LEIGH [facility] : 1970 Age/S: 51/F [address] Unit #: [id number] Loc: [place] [address] Phys: Alexandra Craig MD Acct: [id number] Dis Date: Status: REG CLI PHONE #: [phone] Exam Date: 08/06/2021 1721 FAX #: [phone] Reason: ENCOUNTER FOR OTHER PREPROCEDURAL EXAMINATION EXAMS: CPT CODE: [id number] XR CHEST 2 V 91156 Location code: H5 Chest 1 view Indication: ENCOUNTER FOR OTHER PREPROCEDURAL EXAMINATION. Comparison: None Findings: The heart and mediastinum are not remarkable. Costophrenicangles are clear. Lungs are clear. Bone is unremarkable for age. Impression: 1. No radiographic evidence of acute cardiopulmonary disease. at 1740 Reported and signed by: Ike Iniguez MD CC: Alexandra Craig MD Technologist:MARLEEN HACKETT Trnscrd Date/Time/By: 08/06/2021 (1740) : By: [email or web address] PAGE 1 Signed ReportFAX: Angela Leobardo Craig [phone] [place]: St: REG Name: SHILA LEIGH [facility] : 1970 Age/S: 51/F [address] Unit #: [id number] Loc: [place] [address] Phys: Alexandra Craig MD Acct: [id number] Dis Date: Status: REG CLI PHONE #: [phone] Exam Date: 08/06/2021 1721 FAX #: [phone] Reason: ENCOUNTER FOR OTHER PREPROCEDURAL EXAMINATION EXAMS: CPT CODE: [id number] XR CHEST 2 V 21826 (Continued) Orig Print D/T: S: 08/06/2021 (1743) PAGE 2 Signed Report- CT CHEST W/O [id number] 15:02:00 [facility] : 1970 Sex: F FAX: All Campos [phone] [place]: St: REG FAX: Leobardo Maravilla [phone] Name: SHILA LEIGH [facility] : 1970 Age/S: 51/F [address] Unit: [id number] Loc: [place] [address] Phys: All Macdonald Acct: [id number] Dis Date: Status: REG CLI PHONE #: [phone] Exam Date: 03/22/2021 1355 FAX #: [phone] Reason: ACUTE COUGH EXAMS: CPT CODE: [id number] CT CHEST W/O CONTRAST [address] without contrast. Location Code: D4 CLINICAL HISTORY: ACUTE COUGH COMPARISON: None Technique: Helical CT of the chest was performed without intravenous contrast. 5 mm axial, sagittal and coronal images were obtained. One or more of the following dosereduction techniques were used: Automated exposure control, adjustment [...] MD Technologist: SHANNA CARRENO Trnscrd Dt/Tm: 03/22/2021 (8822) ConcepciónR.RAO1 Orig Print D/T: S: 03/22/2021 (4726 PAGE 1Signed Report- CT HEART W CN STR [facility] 2021-02-22 09:25:00 [facility] : 1970 Sex: F FAX: Leobardo Watts [phone] [place]: St: PRE Name: SHILA LEIGH [facility] : 1970 Age/S: 50/F [address] Unit: [id number] Loc: [place] [address] Phys: Alexandra Craig MD Acct: [id number] Dis Date: Status: PRE CLI PHONE #: [phone] Exam Date: 02/19/2021 1117 FAX #: [phone] Reason: FAMILY HISTORY OF ISCHEMIC HEART DISEASE AND OT EXAMS: CPT CODE: [id number] CT HEART W CN STR [facility] [address] HISTORY: Family history of heart disease COMPARISON: None TECHNIQUE: Prospective gating 64 slice coronary CTA was obtained for department protocol. Images were obtained and reviewed on 3-D workstation rendering 2D and 3D multiplanar, MIP and Volume Rendering connie ges. FINDINGS: Quality: Overall examination is of good quality. Only limited motion artifacts are present. Morphology: Cardial chambers: Normal. Pericardium: Normal. GENERAL: Coronary artery system is right dominant. Origins: Left Main: Patent without significant disease or stenosis LAD: Patent without significant disease or stenosis DIAGONALS: Patent without significant disease or stenosis LCX:Patent without significant disease or stenosis OM: Patent without significant disease or stenosis RCA: Patent without significant disease or stenosis identified Extracardiac: Lungs are clear. IMPRESSION: 1. No significant disease or stenosis. PAGE 1 Signed Report (CONTINUED) FAX: Ruben Maravilla [phone] [place]: St: PRE Name: SHILA LEIGH [facility] [place] : 1970 Age/S: 50/F [address] [id number] Loc: [place] [address] Phys: Alexandra Pedroza MD Acct: [id number] Dis Date: Status: PRE CLI PHONE #: [phone] Exam Date: 02/19/2021 1117 FAX #: [phone] Reason: FAMILY HISTORY OF ISCHEMIC HEART DISEASE AND OT EXAMS: CPT CODE: [id number] CT HEART W CN STR [facility] [address] (Continued) at 0925 Reported and signed by: Miky Muñiz MD CC: Alexandra Craig MD Technologist: Lea Lee TrnscrdDt/Tm: 02/22/2021 (0925) [email or web address] Orig Print D/T: S: 02/22/2021 (0928 PAGE 2 Signed ReportBEDSIDE [id number] 12:34:00* Test Item Value Reference Range Interpretation Comme nts BEDSIDE CREATININE (test cod e = CREATBED) 0.8 MG/DL 0.5-1.0 N - DOP ART 1-2 LEVELS [id number] 10:27:00 [facility] : 1970 Sex: F FAX: Angela Leobardo Pedroza [phone] [place]: St: REG Name: SHILA LEIGH [facility] [place] : 1970 Age/S: 50/F [address] Unit #: [id number] Loc: [place] [address] Phys: Alexandra Craig MD Acct: [id number] Dis Date: Status: REG CLI PHONE #: [phone] Exam Date: 02/19/2021 1005 FAX #: [phone] Reason: HYPERLIPIDEMIA EXAMS: CPT CODE: [id number] DOP ART 1-2 LEVELS FLORENCIO 24992 EXAMINATION: - DUP LE ART FLORENCIO, - [...] throughout the arterial structures the left lower extremitywith the exception of the dorsalis pedis artery, which is biphasic waveforms. The left BRITNEY is 1.0 IMPRESSION: No evidence of hemodynamically significant stenosis in either lower extremity Jairo frazier Signed by Marge Persaud MD on 02/19/2021 at 1027 Reported and signed by: Marge Persaud MD CC: Alexandra Craig MD Technologist: JASMINE READ Trnscrd Date/Time/By: 02/19/2021 (1027) : By: [email or web address] PAGE 1 Signed Report FAX: Leobardo Maravilla [phone] [place]: [facility]: REG Name: SHILA LEIGH [facility] : 1970 Age/S: 50/F [address] Unit #: [id number] Loc: [place] [address] Phys: Alexandra Pedroza MD Acct: [id number] Dis Date: Status: REG CLI PHONE #: [phone] Exam Date: 02/19/2021 1005 FAX #: [phone] Reason: HYPERLIPIDEMIA EXAMS: CPT CODE: [id number] DOP ART 1-2 LEVELS FLORENCIO 68101 (Continued) Orig Print D/T: S: 02/19/2021 (1030) PAGE 2 Signed Report- DUP LE ART [id number] 10:27:00 [facility] : 1970 Sex: F FAX: Leobardo Watts [phone] [place]: St: REG Name: SHILA LEIGH [facility] : 1970 Age/S: 50/F [address] Unit #: [id number] Loc: [place] [address] Phys: Alexandra Craig MD Acct: [id number] Dis Date: Status: REG CLI PHONE #: [phone] Exam Date: 02/19/2021 1005 FAX #: [phone] Reason: HYPERLIPIDEMIA EXAMS: CPT CODE: [id number] DUP LE ART FLORENCIO 11716 EXAMINATION: - DUP LE ART FLORENCIO, - DOP ART 1-2 LEVELS FLORENCIO COMPARISON: None HISTORY: Hyperlipidemia LOCATIONCODE: C3 TECHNIQUE: Grayscale, color Doppler and spectral waveform analysis of the arterial systemsof both lower extremities was performed. FINDINGS: RIGHT LOWER EXTREMITY:No significant plaquing isseen in the arterial structures of the right [...] hemodynamically significant stenosis in either lower extremity ElectronicallySigned by Marge Persaud MD on 02/19/2021 at 1027 Reported and signed by: Marge Persaud MD CC: Alexandra Craig MD Technologist: JASMINE READ Trnscrd Date/Time/By: 02/19/2021 (9296) : By: [email or web address] PAGE 1 Signed Report FAX: Leobardo Maravilla [phone] [place]: St: REG-------- Name: SHILA LEIGH [facility] : 1970 Age/S: 50/F [address] Unit #: [id number] Loc: [place], [place] Phys: Alexandra Craig MD Acct: [id number] Dis Date: Status: REG CLI PHONE #: [phone] Exam Date: 02/19/2021 1005 FAX #: [phone] Reason: HYPERLIPIDEMIA EXAMS: CPT CODE: [id number] DUP LE ART [place] 57291 (Continued) Orig Print D/T: S: 02/19/2021 (1030) PAGE 2 Signed Report- DUP EXTRACRANIAL [id number] 10:25:00 [facility] : 1970 Sex: F FAX: Leobardo Watts [phone] [place]: St: REG Name: SHILA LEIGH : 1970 Age/S: 50/F [address] Unit #: [id number] Loc: [place] [address] Phys: Alexandra Craig MD Acct: [id number] Dis Date: Status: REG CLI PHONE #: [phone] Exam Date: 02/19/2021 1005 FAX #: [phone] Reason: HYPERLIPIDEMIA EXAMS: CPT CODE: [id number] DUP EXTRACRANIAL FLORENCIO 43431 EXAMINATION: - DUP EXTRACRANIAL FLORENCIO COMPARISON: None HISTORY: Hyperlipidemia LOCATION CODE: C3 TECHNIQUE: Grayscale, color Doppler and spectral waveform analysis of the carotid and vertebral arterial systems was performed. FINDINGS: RIGHT CAROTID SYSTEM: No significant atheromatous plaquing is present in the right carotid system and no areas of focal aneurysm or stenosis are identified. Peak systolic velocity in the right internal carotid artery is 77 cm/s RIGHT ICA:CCA ratio: 0.9 LEFT CAROTID SYSTEM: No significant atheromatous plaquing is present in the left carotid system and no areas of foc al aneurysm or stenosis are identified. Peak systolic velocity in the left internal carotid artery is 95 cm/s LEFT ICA:CCA ratio: 1.2 VERTEBRAL [...] 1 Signed Report (CONTINUED) FAX: Leobardo Watts [phone] [place]: St: REG -- Name: SHILA LEIGH [facility] : 1970 Age/S: 50/F [address] Unit #: [id number] Loc: [place] [address] Phys: Alexandra Pedroza MD Acct: [id number] Dis Date: Status: REG CLI PHONE #: [phone] Exam Date: 02/19/2021 1005 FAX #: [phone] Reason: HYPERLIPIDEMIA EXAMS: CPT CODE: [id number] DUP EXTRACRANIAL [place] 43063 (Continued) CC: Alexandra Craig MD Technologist: JASMINE READ Date/Time/By: 02/19/2021 (8310) : By: [email or web address] PAGE 2 Signed Report FAX: Leobardo Maravilla [phone] [place]: St: REG Name: SHILA LEIGH [facility] : 1970 Age/S: 50/F [address] Unit #: [id number] Loc: [place] [address] Phys: Alexandra Craig MD Acct: [id number] Dis Date: Status: REG CLI PHONE #: [phone] Exam Date: 02/19/2021 1005 FAX #: [phone] Reason: HYPERLIPIDEMIA EXAMS: CPT CODE: [id number] DUP EXTRACRANIAL [place] 70234 (Continued) Orig Print D/T: S: 02/19/2021 (1057) PAGE 3 Signed Report- XR HAND 3 + V [id number] 11:52:00FAX: Leobardo Maravilla [phone] [place]: St: REG Name: SHILA LEIGH [facility] : 1970 Age/S: 48/F [address] Unit #: [id number] Loc: [place] [address] Phys: Alexandra Craig MD Acct: [id number] Dis Date: Status: REG CLI PHONE #: [phone] Exam Date: 05/06/2018 1055 FAX #: [phone] Reason: PAIN IN RIGHT FINGER(S),PAIN IN LEFT FINGER(S) EXAMS: CPT CODE: [id number] XR HAND 3 + [place] [address] EXAM: - XR HAND 3 + V BI HISTORY: PAIN IN RIGHT FINGER(S),PAIN IN LEFT FINGER(S) COMPARISON: None available time of interpretation. FINDINGS: Frontal, oblique, and lateralviews of both hands are provided. No acute fracture or malalignment. No soft tissue findings are jose r arent. IMPRESSION: No acute findings. at 1152 Reported and signed by: Anurag Pittman MD CC: Alexandra Craig MD Technologist: Meghan Turner Trnscrd Date/Time/By: 05/06/2018 (3776) : By: [email or web address] PAGE 1 Signed Report FAX: Leobardo Watts [phone] [place]: St: REG Name: SHILA LEIGH [facility] : 1970 Age/S: 48/[address] Unit #: [id number] Loc: [place] [address] Phys: Alexandra Craig MD Acct: [id number] Dis Date: Status: REG CLI PHONE #: [phone] Exam Date: 05/06/2018 1055 FAX #:[phone] Reason: PAIN IN RIGHT FINGER(S),PAIN IN LEFT FINGER(S) EXAMS: CPT CODE: [id number] XR ESPINOSA ND 3 + [place] [address] (Continued) Orig Print D/T: S: 05/06/2018 (1155) PAGE 2 Signed Report Notes Date/Time Note Provider Source 2023-02-07 08:46:00 [id number] [facility] [address] [place] [address] PATIENT NAME: SHILA LEIGH ADMIT DATE: 01/28/23 ACCOUNT NO: [id number] ROOM NO: [place] [address] AGE: 52 REPORT TYPE: 360 - QUERY RESPONSE DOCUMENT SEX: F ADMITTING PHYSICIAN:Franko Wood MD ATTENDING PHYSICIAN:Franko Wood MD Provider Query QUERY TEXT: Condition General 360MD Query related questions should be directed to:[facility] Coding Query Helpline Based on your clinical [...] 02/04/2023 1:34 AM at 0846 PATIENT NAME: SHILA LEIGH [facility] 2023-01-30 12:50:00 [facility] ([facility] Hospitalist Discharge Summary REPORT#:[id number] REPORT STATUS: Signed REPORT INITIALIZATION DATE:01/30/23 TIME: 1250 PATIENT: SHILA LEIGH UNIT #: [id number] ROOM/BED: [address] : [birth year] AGE: 52 SEX: F [...] of motion, no edema Musculoskeletal: normal inspection Neuro/SENIOR SYSTEMS SOFTWARE ENGINEER: alert, oriented X 3 Lymphatics: axilla normal, [...] % (Auto) (20.5 - 45.5 %) 25.0 Pine % (Auto) (5.5 - 11.7 %) 7.0 Eos % (Auto) (0.9 - 2.9 %) 0.8 L Baso % (Auto) (0.2 - 1.0 %) 0.5 Neut # (Auto) (2.2 - 4.8 x10 3/uL) 7.85 H Lymph # (Auto) (1.3 - 2.9 x10 3/uL) 2.96 H Pine # (Auto) (0.3 - 0.8 x10 3/uL) 0.83 H Eos # (Auto) (0.0 - 0.2 x10 3/uL) 0.10 Baso # (Auto) (0.0 - 0.1 x10 3/uL) 0.06 Immature Gran % (0.0 - 2.0 %) 0.5 Nucleated RBC % (0 - 1.0 %) 0.0 Radiology data: Recent Impressions: MAGNETIC RESONANCE IMAGING - MRI BRAIN W/O CONTRAST 01/29 3523 Report Impression - Status: SIGNED Entered: 01/29/2023 6230 IMPRESSION: 1. No acute intracranial abnormality. No [...] air without respiratory distress. at 1252 RPT #:[id number] END OF REPORT [facility] 2023-01-30 12:38:[address] [facility] Neurology Progress Note REPORT#:[id number] REPORT STATUS: Signed REPORT INITIALIZATION DATE:01/30/23 TIME: 1237 PATIENT: SHILA LEIGH UNIT #: [id number] ROOM/BED: [address] : [birth year] AGE: 52 SEX: F [...] ML TITRATE IV (DC) Perflutren Lipid Microsphere ([employer]) DIRECTED ONCE PRN IV (DC) Sodium Chloride [...] % (Auto) (20.5 - 45.5 %) 25.0 Pine % (Auto) (5.5 - 11.7 %) 7.0 Eos % (Auto) (0.9 - 2.9 %) 0.8 L Baso % (Auto) (0.2 - 1.0 %) 0.5 Neut # (Auto) (2.2 - 4.8 x10 3/uL) 7.85 H Lymph # (Auto) (1.3 - 2.9 x10 3/uL) 2.96 H Pine # (Auto) (0.3 - 0.8 x10 3/uL) 0.83 H Eos # (Auto) (0.0 - 0.2 x10 3/uL) 0.10 Baso # (Auto) (0.0 - 0.1 x10 3/uL) 0.06 Immature Gran % (0.0 - 2.0 %) 0.5 Nucleated RBC % (0 - 1.0 %) 0.0 Radiology Data: Recent Impressions: MAGNETIC RESONANCE IMAGING - MRI BRAIN W/O CONTRAST 01/29 1745 Report Impression - Status: SIGNED Entered: 01/29/2023 6879 IMPRESSION: 1. No acute intracranial abnormality. No acute ischemic infarct or mass lesion. Impression By: Gagan Alejandre MD Diagnosis, Assessment Plan Free Text A [...] for dc per neuro at 1239 RPT #:[id number] END OF REPORT [facility] 2023-01-30 08:16:00 [facility] ([facility]) Critical Care Progress Note REPORT#:[id number] REPORT STATUS: Signed REPORT INITIALIZATION DATE:01/30/23 TIME: 815 PATIENT: SHILA LEIGH UNIT #: [id number] ROOM[address]BED: [address] : [birth year] AGE: 52 SEX: F ATTEND: Franko Wood MD ADM AUTHOR: Neftali Carbajal DO R1 REPT SERVICE DT/TIME: 01/30/23 0816 * ALL edits or amendments must be [...] Result Date Time Pulse Ox 99 01/30 07 B/P 110/65 01/30 700 B/P Mean 82 01/30 0700 Pulse 60 01/30 0700 Resp 14 01/30 700 O2 Delivery Room air 01/31 400 Temp 36.8 01/31 400 24 hour I O ending at 0700: [...] catheter Extremities: moves all Musculoskeletal normal inspection Neuro/SENIOR SYSTEMS SOFTWARE ENGINEER: alert, oriented X 3, normal speech, no [...] % (Auto) (20.5 - 45.5 %) 25.0 Pine % (Auto) (5.5 - 11.7 %) 7.0 Eos % (Auto) (0.9 - 2.9 %) 0.8 L Baso % (Auto) (0.2 - 1.0 %) 0.5 Neut # (Auto) (2.2 - 4.8 x10 3/uL) 7.85 H Lymph # (Auto) (1.3 - 2.9 x10 3/uL) 2.96 H Pine # (Auto) (0.3 - 0.8 x10 3/uL) [...] IMAGING - MRI BRAIN W/O CONTRAST 01/29 1745 Report Impression - Status: SIGNED Entered: 01/29/20232152 IMPRESSION: 1. No acute intracranial abnormality. No acute ischemic infarct or mass lesion. Impression By: Gagan Alejandre MD Results: labs reviewed, vital signs reviewed, current med profile rev'd Diagnosis, Assessment Plan Free text A P: This is a 52 y/o female with no significant medical history presented to the ER with right sided facial droop. Patient is admitted to [facility] s/p TNK @ 1750 yesterday. ASSESSEMENT [...] with neurology discharge home at 1129 at 2035 RPT #:[id number] END OF REPORT [facility] 2023-01-29 22:37:00 [facility] ([facility]) Clinical Note REPORT#:[id number] REPORT STATUS: Signed REPORT INITIALIZATION DATE:01/29/23 TIME: 2236 PATIENT: SHILA LEIGH UNIT #: [id number] ROOM/BED: [address] : [birth year] AGE: 52 SEX: F ATTEND: Etienne You MD ADM AUTHOR: Bran Campuzano APRN REPT SERVICE DT/TIME: 01/29/232236 * ALL edits or amendments must be made on the electronic/computer document * Clinical Note Note: [address] not done earlier as MRI was done instead: negative for acute intracranial hemorrhage or infarct. No Stroke. Neurology already following. at 2238 RPT #:[id number] END OF REPORT [facility] 2023-01-29 15:39:00 [id number] [facility] [address] [facility] [address] [place] [address] PATIENT NAME: SHILA LEIGH ADMIT DATE: 01/28/23 ACCOUNT NO: [id number] ROOM NO: [place] [address] AGE: 52 REPORT TYPE: eECHOCARDIOGRAM REPORT. SEX: F ADMITTING PHYSICIAN:Etienne You MD ATTENDING PHYSICIAN:Etienne You MD *[facility]* [address] [place] [address] Transthoracic Echocardiogram Patient: Shila Leigh Study Date: 01/29/2023 BP: 161 / 100 URN: [id number] Location: : 1970 Age: 52 Gender: F Height: 66 in / 167.6 cm Weight: 164 lb / 74.4 kg BMI/BSA: 26.5 kg/m 2 / 1.88 m 2 *Ordering Physician: * Yao, Quintin R3 *Interpreting Physician: * Bran Ramires MD *[employer] Service Technician: * Ankita Astudillodia RCS Indications: Stroke. Study data: Transthoracic echocardiogram. Procedure: A transthoracic echocardiogram was performed. Images were obtained using a Chideo [id number] cardiac ultrasound machine. Intravenous contrast (agitated [...] diastolic function parameters are normal. PATIENT NAME: SHILA LEIGH Right ventricle: The cavity size is [...] v, S 1.07 m/sec --------- PATIENT NAME: SHILA LEIGH VTI, S 32.6 cm --------- Mean [...] intracardiac or intrapulmonary shunt. Electronically signed by Bran Ramires MD 01/29/2023 15:39 at 1539 PATIENT NAME: SHILA LEIGH [facility] 2023-01-29 08:36:00 [facility] ([facility]) Critical Care Progress Note REPORT#:[id number] REPORT STATUS: Signed REPORT INITIALIZATION DATE:01/29/23 TIME: 835 PATIENT: SHILA LEIGH UNIT #: [id number] ROOM/BED: [address] : [birth year] AGE: 52 SEX: F ATTEND: Franko Wood MD ADM AUTHOR: Neftali Carbajal DO R1 REPT SERVICE DT/TIME: 01/29/23 0836 * ALL edits or amendments must be [...] Ox 97 01/29 08 B/P 125/72 01/29 815 B/P Mean 93 01/29 08 Pulse 78 01/29 0815 Resp 16 01/29 815 Temp 37.2 01/29 0800 O2 Delivery Room [...] ML TITRATE IV (CKD) Perflutren Lipid Microsphere ([employer]) DIRECTED ONCE PRN IV Sodium Chloride (NACL [...] catheter Extremities: moves all Musculoskeletal normal inspection Neuro/SENIOR SYSTEMS SOFTWARE ENGINEER: alert, oriented X 3, CNII-XII intact, normal speech, no motor deficits, no sensory deficits, Right sided facial droop with tongue deviation to the right. Decreased sensation on right side of face. Skin: intact, normal color, normal temperature, no rash Psychiatry: normal affect, normal judgment/insight, normal mood Results Findings/data: Laboratory Tests 01/29 01/29 01/29 01/28 01/28 0709 0244 0241 9 1921 Chemistry Sodium (137 - 145 mmol/L) [...] Specimen Hemolysis (0 - 100 Index/DL) 01/28 1750 Chemistry Sodium (137 - 145 [...] (20.5 - 45.5 %) 12.4 L 33.4 Pine % (Auto) (5.5 - 11.7 %) 0.9 L 8.0 Eos % (Auto) (0.9 - 2.9 %) 0.0 L 3.4 H Baso % (Auto) (0.2 - 1.0 %) 0.4 0.9 Neut # (Auto) (2.2 - 4.8 x10 3/uL) 6.02 H 3.97 Lymph # (Auto) (1.3 - 2.9 x10 3/uL) 0.87 L 2.46 Pine # (Auto) (0.3 - 0.8 x10 3/uL) [...] Report Impression - Status: SIGNED Entered: 01/28/2023 1826 IMPRESSION: 1. No intracranial large vessel occlusion. [...] sided facial droop. Patient is admitted to [facility] s/p TNK @ 1750 yesterday. ASSESSEMENT [...] brain Echo at 1341 at 1707 RPT #:[id number] END OF REPORT [facility] 2023-01-29 08:30:00 [facility]) Neurology Consultation Note REPORT#:[id number] REPORT STATUS: Signed REPORT INITIALIZATION DATE:01/29/23 TIME: 829 PATIENT: SHILA LEIGH UNIT #: [id number] ROOM/BED: [address] : [birth year] AGE: 52 SEX: F ATTEND: Etienne You MD ADM AUTHOR: Gaurang Townsend DO REPT SERVICE DT/TIME: 01/29/23829 * ALL edits or amendments must be [...] 01/28 1845 AC (BENADRYL INJ) IV 04/27 1846 Blood Formation,Coagulation Sig/Marli Start time Last Medication Dose Route Stop Time Status Admin Tenecteplase 18.5 MG X1ED STA 01/28 1754 DC 01/28 (TNKASE) IV 01/28 1755 1755 Tenecteplase See Dose X1ED STA 01/28 1743 CAN (TNKASE) Insts (1) IV 01/28 1744 Cardiovascular Drugs Sig/Marli Start time Last Medication Dose Route Stop Time Status Admin Atorvastatin Calcium 80 MG DAILY 01/29 0900 WDA (LIPITOR) PO 04/28 0901 Labetalol HCl 10 MG Q1H PRN PRN 01/28 2215 AC (TRANDATE 4ML, IV 04/27 221 GENERIC LABETALOL) Nicardipine HCl 200 ML TITRATE 01/28 1845 CKD (niCARdipine 40 mg/ IV 04/27 184 NS 200 mL) Nicardipine HCl 200 ML .Q24H ONE 01/28 1745 DC 01/28 (niCARdipine 40 mg/ IV 01/29 174 1833 NS 200 mL) Diagnostic Agents Sig/Marli Start time Last Medication Dose Route Stop Time Status Admin Iopamidol 100 ML .STK-MED ONE 01/28 1749 DC 01/28 (ISOVUE-370 100ML) IV 01/28 175 1749 Electrolytic, Caloric, And Arianne Sig/Marli Start time Last Medication Dose Route Stop Time Status Admin Sodium Chloride 10 ML ASDIR PRN 01/28 1830 DC (NACL 0.9%) IV 01/29 0025 Sodium Chloride 250 ML ASDIR PRN 01/28 1830 DC (SODIUM CHLORIDE IV 01/29 0025 0.9%) Sodium Chloride 1,000 ML .Q20H ONE 01/28 174 AC 01/28 (SODIUM CHLORIDE IV 01/29 1344 [...] 01/28 2100 DC 01/28 (SODIUM CHLORIDE IV 01/29 FLUSH) Sodium Chloride See Dose ONCE PRN 01/28 1845 AC (NACL 0.9% 10ML Insts (3) IV 01/29 1846 SYRINGE) Sodium Chloride 5 ML ONCE PRN 01/28 1845 AC (SODIUM CHLORIDE IV 01/29 1846 FLUSH) Sodium Chloride 5 ML ASDIR PRN 01/28 1830 DC (SODIUM CHLORIDE IV 01/29 25 FLUSH) Dose Instructions: (1)Tenecteplase (TNKASE): SEE ADMIN CRITERIA FOR DOSE (2)Perflutren Lipid Microsphere (DEFINITY): DIRECTED (3)Sodium Chloride (NACL 0.9% 10ML SYRINGE): DIRECTED Allergies: Coded Allergies: tramadol (Intermediate, RASH-UNKNOWN 01/29/23) codeine (UPSET STOMACH 10/29/11) DRUG INGREDIENT Georges CODEINE Objective General VS: Last Documented: Result Date Time Pulse Ox 97 01/29 0815 B/P 125/72 01/29 0815 B/P Mean 93 01/29 0815 Pulse 78 01/29 0815 Resp 16 01/29 0815 Temp 99.0 01/29 0800 O2 Delivery Room [...] moves all, normal inspection Musculoskeletal: normal inspection Neuro/SENIOR SYSTEMS SOFTWARE ENGINEER: alert, oriented X 4, normal speech, EOMI, [...] Tests 01/28 1750 Coagulation INR 1.0 PTT ([place]) (23.4 - 37.0 SECONDS) 33.2 PT Patient/Control Mix (9.4 - 12.5 SECONDS) 11.0 Laboratory Tests 01/29 1750 Hematology WBC (5.0 - 12.0 x10 [...] (20.5 - 45.5 %) 12.4 L 33.4 Pine % (Auto) (5.5 - 11.7 %) 0.9 L 8.0 Eos % (Auto) (0.9 - 2.9 %) 0.0 L 3.4 H Baso % (Auto) (0.2 - 1.0 %) 0.4 0.9 Neut # (Auto) (2.2 - 4.8 x10 3/uL) 6.02 H 3.97 Lymph # (Auto) (1.3 - 2.9 x10 3/uL) 0.87 L 2.46 Pine # (Auto) (0.3 - 0.8 x10 3/uL) [...] Report Impression - Status: SIGNED Entered: 01/28/2023 1826 IMPRESSION: 1. No intracranial large vessel occlusion. Impression By: Anurag Arndt MD CAT SCAN - CT ANGIO HEAD 01/28 1750 Report Impression - Status: SIGNED Entered: 01/28/2023 182 IMPRESSION: 1. No intracranial large vessel occlusion. Impression By: [email or web address] - Anurag Pittman MD RADIOLOGY - XR CHEST 1 V 01/28 1901 Report Impression - Status: SIGNED Entered: 01/28/2023 192 IMPRESSION: No acute radiographic abnormality. Impression By: [email or web address] - Lizandro Sifuentes MD Diagnosis, Assessment Plan Free Text DxA [...] after tnk -will follow at 0838 RPT #:[id number] END OF REPORT [facility] 2023-01-28 18:30:[address] [facility] Critical Care H P REPORT#:[id number] REPORT STATUS: Signed REPORT INITIALIZATION DATE:01/28/23 TIME: 1829 PATIENT: SHILA LEIGH UNIT #: [id number] ROOM[address]BED: [address] : [birth year] AGE: 52 SEX: F [...] Temp 97.7 01/28 1754 Pulse 68 01/28 175 Resp 18 01/28 1754 O2 Delivery Room air 01/28 173 Patient Weight and BMI Weight (kg): 74.5 BMI: 26.5 Neuro/SENIOR SYSTEMS SOFTWARE ENGINEER: alert, oriented X 3, facial droop, R [...] CT head result at 24hr start statin, PT/OT/RATE MARKER at 1934 at 2330 RPT #:[id number] END OF REPORT [facility] 2023-01-28 18:19:00 [id number] [facility] [address] [facility] [address] [place] [address] PATIENT NAME: SHILA LEIGH ADMIT DATE: 01/28/23 ACCOUNT NO: [id number] ROOM NO: [place] [address] AGE: 52 REPORT TYPE: ELECTROCARDIOGRAM SEX: F ADMITTING PHYSICIAN:Franko Wood MD ATTENDING PHYSICIAN:Franko Wood MD Order: [id number] Test Reason : (Not Selected) Test Date/Time [...] by:JAZLYN MARY MD at 1319 PATIENT NAME: SHILA LEIHG [facility] 2023-01-28 17:43:00 [facility] ([facility] EMERGENCY PROVIDER REPORT REPORT#:[id number] REPORT STATUS: Signed DATE:01/28/23 TIME: 1742 PATIENT: SHILA LEIGH UNIT #: [id number] ROOM/BED: [place] [address]A AGE: 52 SEX: F PCP PHYS: Alexandra Craig MD SERVICE AUTHOR: Contreras Dailey MD R3 * ALL edits or amendments must be made on the electronic/computer document * Contreras Dailey 01/28/23 1743: HPI-General Illness Free Text HPI Notes Free [...] Age: Answers both correctly 0 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 both correctly 0 Horizontal EO movements [...] 152/89 01/28 1733 B/P Mean 110 01/28 173 O2 Delivery Room air 01/28 173 Temp 98.0 01/28 173 Pulse 67 01/28 1733 Resp 14 01/28 1733 Last Documented: Result Date Time Pulse Ox 100 01/28 1838 B/P 143/85 01/28 1838 B/P Mean 108 01/28 1838 Pulse 68 01/28 1838 Resp 27 01/28 183 Temp 97.7 01/28 1754 O2 Delivery Room air 01/28 173 Review of Vital Signs Reviewed Free Text [...] Index/DL) < 15 Coagulation INR 1.0 PTT ([place]) (23.4 - 37.0 SECONDS) 33.2 PT Patient/Control [...] % (Auto) (20.5 - 45.5 %) 33.4 Pine % (Auto) (5.5 - 11.7 %) 8.0 Eos % (Auto) (0.9 - 2.9 %) 3.4 H Baso % (Auto) (0.2 - 1.0 %) 0.9 Neut # (Auto) (2.2 - 4.8 x10 3/uL) 3.97 Lymph # (Auto) (1.3 - 2.9 x10 3/uL) 2.46 Pine # (Auto) (0.3 - 0.8 x10 3/uL) [...] Text MDM Notes Free Text MDM Notes 7 discussion at bedside with patient risks versus [...] to TNK Last known well 3 PM 1750 daughter arrived at bedside. They have agreed [...] 143/85 01/28 1838 B/P Mean 108 01/28 183 Pulse 68 01/28 183 Resp 27 01/28 183 Temp 97.7 01/28 1754 O2 Delivery Room air 01/28 1733 All vital signs available at the time of this entry have been reviewed. 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 at 1821 at 3398 RPT #:[id number] END OF REPORT [facility]
--- NOTE | 2024-06-02 18:20 | RAD REPORT ---
EXAM: Chest Single View HISTORY: 54 years Female PALPITATIONS COMPARISON: Chest CT 03/04/2024 FINDINGS: LUNGS/PLEURA: The lungs are clear. No pleural effusions or pneumothorax. No pulmonary edema. CARDIAC/MEDIASTINUM: The cardiac silhouette is within normal limits. UPPER ABDOMEN: No significant abnormality. BONES: No acute abnormality. LINES/TUBES/OTHER: N/A IMPRESSION: No evidence of acute cardiopulmonary disease.
[2024-06-02 18:38] LABS: Absolute Basophils 0.1 K/uL (0-0.5); Absolute Eosinophils 0.1 K/uL (0-0.5); Absolute Lymphocytes (CBC) 1.9 K/uL (0.7-4.9); Absolute Monocytes 0.6 K/uL (0.1-1.3); Absolute Neutrophil 5.2 K/uL (1.8-8.0); Eosinophils % 1.6 % (0-4.4); Hematocrit 40.3 % (36.0-45.0); Hemoglobin 14.4 g/dL (12.0-15.0); Lymphocytes % 24.5 % (15.3-44.8); MCH 30.9 pg (27.0-35.0); MCHC 35.6 g/dL (32.0-36.0); MCV 86.8 fL (80-100); MPV 8.3 fL (7.6-11.3); Monocytes % 7.2 % (3.3-12.3); Neutrophils % 65.7 % (41.7-73.7); Nucleated Red Blood Cells % 0.1 % (0-0); Platelets 255 thou/uL (152-406); RBC Red Blood Cell Count 4.64 M/uL (3.86-4.86); Red Cell Distribution Width 14.1 % (12.1-15.2)
[2024-06-02 19:01] LABS: Anion Gap 6.3 mEq/L (5.0-15.0); Magnesium 2.1 mg/dL (1.6-2.4); Potassium 3.3 mEq/L (3.5-5.1); Thyroid Stimulating Hormone 1.39 uIU/mL (0.358-3.740)
[2024-06-02] MEDS ORDERED: POTASSIUM CL SA 10 MEQ TAB PO ONE (19:47)
[2024-06-02] MEDS ORDERED: NA CHLORIDE 0.9% 1,000 ML ONE (19:47)
--- NOTE | 2024-06-02 21:25 | EDPHYS ---
Physician Documentation [facility] Name: Shila Leigh Age: 54 yrs Sex: Female : 1970 Arrival Date: 06/02/2024 Time: 17:41 Bed 8 Private MD: ED Physician Chana Dyer HPI: 06/02 18:12 This 54 yrs old Female presents to ER via Ambulatory with complaints of Palpitations. kb 18:12 Patient is a 54-year-old female who presents for palpitations that started around 3 PM kb and lasted about 2 hours. States she was at work so she could not leave while the palpitations were occurring. Came in at this time just to be checked out to make sure things looked okay. States all symptoms have resolved at this time.. Historical: - Allergies: 17:56 Tramadol HCl; iw - PMHx: 17:56 Migraine; iw - PSHx: 17:56 section; left foot surgery; iw - Infectious Disease History:: Denies. - Social history:: Smoking status: Patient/guardian denies using tobacco, the patient reports quitting approximately 28 years ago. ROS: 18:12 Constitutional: As per HPI kb Exam: 18:12 Constitutional: This is a well developed, well nourished patient who is awake, alert, kb and in no acute distress. Head/Face: Normocephalic, atraumatic. ENT: Moist Mucous membranes Cardiovascular: Regular rate Respiratory: Respirations even and unlabored. No increased work of breathing. Talking in full sentences Abdomen/GI: Soft, non-tender. No distention Skin: Warm, dry with normal turgor. Normal color. MS/ Extremity: Pulses equal, no cyanosis. Neurovascular intact. Full, normal range of motion. Neuro: Awake and alert, GCS 15, oriented to person, place, time, and situation. 18:59 ECG was reviewed by the Attending Physician. kb Vital Signs: 18:01 BP 120 / 91; Pulse 91; Resp 16; Pulse Ox 97% on R/A; iw 19:15 BP 116 / 78; Pulse 82; Resp 16; Pulse Ox 100% on R/A; dd2 19:35 BP 137 / 87; Pulse 75; Resp 16; Pulse Ox 100% on R/A; dd2 20:00 BP 134 / 81; Pulse 69; Resp 16; Pulse Ox 99% on R/A; Pain 0/10; dd2 20:30 BP 138 / 84; Pulse 63; Resp 15; Temp 98.3; Pulse Ox 100% on R/A; dd2 21:00 BP 140 / 75; Pulse 65; Resp 16; Pulse Ox 100% on R/A; dd2 21:20 Weight 71.21 kg; Height 5 ft. 3 in. ; vc1 21:30 BP 142 / 77; Pulse 71; Resp 16; Pulse Ox 100% on R/A; dd2 22:30 BP 133 / 67; Pulse 79; Resp 16; Temp 98.3; Pulse Ox 99% on R/A; dd2 21:20 Body Mass Index 27.81 (71.21 kg, 160.02 cm) vc1 20:00 Pain Scale: Adult dd2 MDM: 17:57 Medical Screening Exam initiated kb 21:22 Differential diagnosis: arrythmia, dehydration, stress disorder, acute mi. Data kb reviewed: vital signs, nurses notes. Consideration of Admission/Observation Escalation of care including admission/observation considered. pt will be transferred for NSTEMI due to elevation in troponin and label press operator unavailable . Counseling: I had a detailed discussion with the patient and/or guardian regarding the historical points, exam findings, and any diagnostic results supporting the discharge/admit diagnosis, lab results, radiology results, the need to transfer to another facility, label press operator down. 21:53 Management of patient was discussed with the following: Dr Ambrose, hospitalist at [facility], accepts pt for transfer. 06/02 17:58 Order name: Basic Metabolic Panel; Complete Time: 19:02 kb 06/02 17:58 Order name: CBC with Diff; Complete Time: 18:48 kb 06/02 17:58 Order name: Magnesium; Complete Time: 19:02 kb 06/02 17:58 Order name: Troponin HS; Complete Time: 19:02 kb 06/02 17:58 Order name: TSH; Complete Time: 19:02 kb 06/02 20:33 Order name: Troponin High Sensitivity; Complete Time: 21:13 kb 06/02 17:58 Order name: XRAY Chest (1 view); Complete Time: 18:21 kb 06/02 17:58 Order name: EKG; Complete Time: 17:59 kb 06/02 17:58 Order name: Cardiac monitoring; Complete Time: 18:56 kb 06/02 17:58 Order name: EKG - Nurse/Tech; Complete Time: 18:56 kb 06/02 17:58 Order name: IV Saline Lock; Complete Time: 18:56 kb 06/02 17:58 Order name: Labs collected and sent; Complete Time: 18:56 kb 06/02 17:58 Order name: O2 Per Protocol; Complete Time: 18:56 kb 06/02 17:58 Order name: O2 Sat Monitoring; Complete Time: 18:56 kb EC:59 Rate is 74 beats/min. Rhythm is regular. QRS [place] is Normal. LA interval is normal at kb 172 msec. QRS interval is normal at 74 msec. QT interval is normal at 424 msec. Administered Medications: 19:59 Drug: NS 0.9% IV 1000 ml IV at 1000 ml once; to be given as a bolus over 60 minutes dd2 Route: IV; Rate: 1000 ml; Site: right antecubital; 21:02 Follow up: IV Status: Completed infusion; IV Intake: 1000ml dd2 20:00 Drug: Potassium Chloride PO 20 mEq PO once Route: PO; dd2 20:30 Follow up: Response: No adverse reaction dd2 22:44 Drug: Heparin ([place] Drip) 12 units/kg/[place] - ([place] [address] units, D5W IV 500 ml) IV at dd2 calculated rate Per protocol; Max initial rate 1000 units/hr {Co-Signature: vc1 (Catherine Morin RN).} Route: IV; Rate: calculated rate; Site: right antecubital; 23:51 Follow up: IV Status: Infusion continued upon transfer dd2 22:45 Drug: Heparin (PA-Bolus No thrombolytic) - HEParin IVP 60 units/kg IVP once; Max 5000 dd2 units {Co-Signature: vc1 (Catherine oMrin RN).} Route: IVP; Site: right antecubital; 23:00 Follow up: Response: No adverse reaction dd2 22:46 Drug: Aspirin PO Chewable Tablet 324 mg PO once; 81 mg tablets x 4 Route: PO; dd2 23:15 Follow up: Response: No adverse reaction dd2 Disposition Summary: 06/02/24 21:24 Transfer Ordered Notes: Transfer Location: [facility] kb Reason: Higher level of care kb Condition: Stable kb Problem: new kb Symptoms: are unchanged kb Accepting Physician: Dr Ambrose(06/02/24 23:54) dd2 Diagnosis - NSTEMI kb Forms: - Medication Reconciliation Form kb - SBAR form kb Critical care time excluding procedures: 21:23 Critical care time: Bedside Care: 15 minutes, Consultation: 15 minutes. Total time: 30 kb minutes Signatures: Dispatcher [employer] EDMS Gretchen Perez, WIRE TWISTING MACHINE OPERATOR-C WIRE TWISTING MACHINE OPERATOR-CkAna Howard, RN RN iw ARMAND KOTHARI RN RN dd2 Catherine Morin RN vc1 Corrections: (The following items were deleted from the chart) 17:59 17:58 BASIC METABOLIC PANEL+C.LAB.BRZ ordered. EDMS EDMS 17:59 17:58 CBC+H.LAB.BRZ ordered. EDMS EDMS 17:59 17:58 MAGNESIUM+C.LAB.BRZ ordered. EDMS EDMS 17:59 17:58 Troponin High Sensitivity+C.LAB.BRZ ordered. EDMS EDMS 17:59 17:58 THYROID STIMULAT HORMONE+C.LAB.BRZ ordered. EDMS EDMS 21:54 21:24 Dr early kb 23:54 21:54 Dr Ambrose kb dd2
--- NOTE | 2024-06-02 21:25 | ER ---
Nurse's Notes [facility] Name: Shila Leigh Age: 54 yrs Sex: Female : 1970 Arrival Date: 06/02/2024 Time: 17:41 Bed 8 Private MD: Diagnosis: NSTEMI Presentation: 06/02 17:55 Chief complaint: Patient states: my heart was beating really hard and irregular about 3 iw pm today , pt was just sitting and not exerting herself, the episode lasted 2 hours, now it feels back to normal. Coronavirus screen: At this time, the client does not indicate any symptoms associated with coronavirus-19. Ebola Screen: No symptoms or risks identified at this time. Initial Sepsis Screen: Does the patient meet any 2 criteria? No. Patient's initial sepsis screen is negative. Does the patient have a suspected source of infection? No. Patient's initial sepsis screen is negative. Risk Assessment: Do you want to hurt yourself or someone else? Patient reports no desire to harm self or others. Onset of symptoms was June 02, 2024. 17:55 Method Of Arrival: Ambulatory iw 17:55 Acuity: PADMINI 3 iw Historical: - Allergies: 17:56 Tramadol HCl; iw - PMHx: 17:56 Migraine; iw - PSHx: 17:56 section; left foot surgery; iw - Infectious Disease History:: Denies. - Social history:: Smoking status: Patient/guardian denies using tobacco, the patient reports quitting approximately 28 years ago. Screenin:55 [facility] ED Fall Risk Assessment (Adult) History of falling in the last 3 months, ph including since admission No falls in past 3 months (0 pts) Confusion or Disorientation No (0 pts) Intoxicated or Sedated No (0 pts) Impaired Gait No (0 pts) Mobility Assist Device Used No (0 pt) Altered Elimination No (0 pt) Score/Fall Risk Level 0 - 2 = Low Risk Oriented to surroundings, Maintained a safe environment, Hourly rounding (assess needs \T\ fall precautionary measures) done. Abuse screen: Denies threats or abuse. Denies injuries from another. Nutritional screening: No deficits noted. Tuberculosis screening: No symptoms or risk factors identified. Assessment: 18:53 General: Appears in no apparent distress. comfortable, well groomed, Behavior is calm, ph cooperative, appropriate for age. General: Pt reports chest pain and palpitations that lasted for approx 2 hours earlier today. Pain: Denies pain. Neuro:. Cardiovascular: Reports chest pain, palpitations, shortness of breath, that have resolved Capillary refill < 3 seconds in bilateral fingers Patient's skin is warm and dry. Respiratory: Airway is patent Respiratory effort is even, unlabored, Respiratory pattern is regular, symmetrical. GI: No signs and/or symptoms were reported involving the gastrointestinal system. Derm: Skin is pink, warm \T\ dry. Musculoskeletal: Circulation, motion, and sensation intact. Range of motion: intact in all extremities. 22:54 Reassessment: REPORT CALLED TO [facility] ROOM 1105. dd2 Vital Signs: 18:01 BP 120 / 91; Pulse 91; Resp 16; Pulse Ox 97% on R/A; iw 19:15 BP 116 / 78; Pulse 82; Resp 16; Pulse Ox 100% on R/A; dd2 19:35 BP 137 / 87; Pulse 75; Resp 16; Pulse Ox 100% on R/A; dd2 20:00 BP 134 / 81; Pulse 69; Resp 16; Pulse Ox 99% on R/A; Pain 0/10; dd2 20:30 BP 138 / 84; Pulse 63; Resp 15; Temp 98.3; Pulse Ox 100% on R/A; dd2 21:00 BP 140 / 75; Pulse 65; Resp 16; Pulse Ox 100% on R/A; dd2 21:20 Weight 71.21 kg; Height 5 ft. 3 in. ; vc1 21:30 BP 142 / 77; Pulse 71; Resp 16; Pulse Ox 100% on R/A; dd2 22:30 BP 133 / 67; Pulse 79; Resp 16; Temp 98.3; Pulse Ox 99% on R/A; dd2 21:20 Body Mass Index 27.81 (71.21 kg, 160.02 cm) vc1 20:00 Pain Scale: Adult dd2 ED Course: 17:55 Patient arrived in ED. iw 17:56 Triage completed. iw 17:57 Gretchen Perez FNP-C [facility]. kb 17:57 Chana Dyer MD is Attending Physician. kb 18:09 XRAY Chest (1 view) In Process Unspecified. EDMS 18:15 Jane Lima, RN is Primary Nurse. ph 18:53 Arm band placed on. ph 18:53 Initial lab(s) drawn, by me, sent to lab. Inserted saline lock: 20 gauge in right ph antecubital area, using aseptic technique. Blood collected. Flushed with 10 mL NS. 18:55 Patient has correct armband on for positive identification. Bed in low position. Call ph light in reach. Side rails up X 1. Client placed on continuous cardiac and pulse oximetry monitoring. NIBP monitoring applied. diversity intern on. 18:56 Basic Metabolic Panel Sent. ph 18:56 Magnesium Sent. ph 18:56 Troponin HS Sent. ph 18:56 EKG done, by ED staff, reviewed by Gretchen KAUR. ph 20:55 Troponin High Sensitivity Sent. kmf 21:16 Initiated transfer with Yanique at [facility]. rv1 21:44 Doc to Doc with hospitalist. rv1 21:50 Doc to Doc with Insulation Foreman. rv1 22:[address] Ambrose to [facility] Rm 1105. rv1 23:52 Provided Education on: TRANSFER INSTRUCTIONS. dd2 23:52 No provider procedures requiring assistance completed. Patient transferred, IV remains dd2 in place. Administered Medications: 19:59 Drug: NS 0.9% IV 1000 ml IV at 1000 ml once; to be given as a bolus over 60 minutes dd2 Route: IV; Rate: 1000 ml; Site: right antecubital; 21:02 Follow up: IV Status: Completed infusion; IV Intake: 1000ml dd2 20:00 Drug: Potassium Chloride PO 20 mEq PO once Route: PO; dd2 20:30 Follow up: Response: No adverse reaction dd2 22:44 Drug: Heparin ([place] Drip) 12 units/kg/[place] ([place] [address] units, D5W IV 500 ml) IV at dd2 calculated rate Per protocol; Max initial rate 1000 units/hr {Co-Signature: vc1 (Catherine Morin RN).} Route: IV; Rate: calculated rate; Site: right antecubital; 23:51 Follow up: IV Status: Infusion continued upon transfer dd2 22:45 Drug: Heparin (AL-Bolus No thrombolytic) - HEParin IVP 60 units/kg IVP once; Max 5000 dd2 units {Co-Signature: vc1 (Catherine Morin RN).} Route: IVP; Site: right antecubital; 23:00 Follow up: Response: No adverse reaction dd2 22:46 Drug: Aspirin PO Chewable Tablet 324 mg PO once; 81 mg tablets x 4 Route: PO; dd2 23:15 Follow up: Response: No adverse reaction dd2 Medication: 18:55 VIS not applicable for this client. ph Intake: 21:02 IV: 1000ml; Total: 1000ml. dd2 Outcome: 21:24 ER care complete, transfer ordered by . kb 23:52 Transferred by ground EMS to [facility], [facility], Transfer form completed. dd2 23:52 Condition: stable 23:52 Instructed on the need for transfer, Demonstrated understanding of instructions, 23:54 Patient left the ED. dd2 Signatures: Dispatcher [employer] EDMS Gretchen Perez, CAFETERIA OR LUNCHROOM CHECKER-C CAFETERIA OR LUNCHROOM CHECKER-Ana Luna RN RN Jane Lima RN RN Catherine Morin RN RN vc1 Mary Beyer Kelsey Maroul [facility] ARMAND KOTHARI RN RN dd2 Catherine Morin RN vc1
[2024-06-02] MEDS ORDERED: HEPARIN/D5W 25,000 UNIT/500 ML BAG IV ONE (22:24)
[2024-06-02] MEDS ORDERED: HEPARIN 5000 UNIT/ML 1 ML VIAL ONE (22:24)
[2024-06-02] MEDS ORDERED: ASPIRIN 81 MG CHEWABLE TABLET ONE (22:24)
[2024-06-03 01:35] VITALS: TEMP 98.3
[2024-06-03 01:40] VITALS: BP 133/67; O2SAT 99
--- NOTE | 2024-06-03 12:10 | EKG ---
Test Date: 2024-06-02 Test Time: 18:56:38 Fabrication Inspector: JOVANI MEASUREMENT RESULTS: Intervals: Rate: 74 [place]: 172 QRSD: 74 QT: 382 QTc: 424 [place]: P: 51 [place]: 172 QRS: 49 T: 54 INTERPRETIVE STATEMENTS: Normal sinus rhythm Septal infarct, age undetermined Abnormal ECG Compared to ECG 01/15/2023 17:11:11 No significant changes Electronically Signed On 06-03-24 12:08:36 CDT by Anurag Aquino
== END 2024-06-02 23:54 | disposition short-term general hospital (02) ==
LOC: ER 17:41
DX: I21.4 Non-ST elevation (NSTEMI) myocardial infarction (principal)
CPT/HCPCS: 96365; 96361; 93005; 85025; 80048; 36415; 83735; 84443; 84484 ×2; 71045; 99285; J1644; J7030